=== PATIENT | female | born 1930 | race Caucasian/White ===

== ENCOUNTER 2017-01-03 13:34 | Outpatient (CLI) | payer MEDICARE, OTHER | END 2017-01-03 13:35 | disposition critical access hospital (66) | LOC: EMS 13:34 | PROVIDERS: ATTEND Surgery | DX: L89.329 Pressure ulcer of left buttock, unspecified stage (principal); L89.319 Pressure ulcer of right buttock, unspecified stage; L89.899 Pressure ulcer of other site, unspecified stage; L03.116 Cellulitis of left lower limb; L03.115 Cellulitis of right lower limb; L03.317 Cellulitis of buttock; W06.XXXA Fall from bed, initial encounter; Y93.89 Activity, other specified; Y92.003 Bedroom of unspecified non-institutional (private) residence as the place of occurrence of the external cause | CPT/HCPCS: A0425; A0429 ==

== ENCOUNTER 2017-01-03 14:12 | Inpatient (IN) | payer MEDICARE, OTHER ==
--- NOTE | 2017-01-03 14:27 | ED Physician Documentation ---
PD HPI Fall - Stated complaint Stated Complaint: GLF - History obtained from History obtained from: Patient, EMS - History of Present Illness Mechanism of injury: Slipped (she was trying to get back in bed from going to bathroom and slipped backward onto floor. She did not hit head. Denies injury from the fall. She was unable to get herself up and so lay on the floor for 2 days. She was on her back mainly. Has pain in sacral area. Feeling very dry as has not eaten nor drank for 2 days. Usually lives by herself. Neighbor came to check on her and found her on the floor and called EMS.) Fall distance: Standing position Where injury occurred: Home Timing - onset: How many days ago (2) Injury(ies) location: Back (has soreness on sacral area from lying on floor.), Left Lower Extremity (some pain lateral left hip area.). No: Head, Neck, Chest , Abdomen Quality of pain: Aching Associated symptoms: No: LOC, AMS, Weakness, Paresthesias Worsens with: Movement Contributing factors: No: Anticoagulated, Intoxicated Similar symptoms before: Has not had sx before Recently seen: Not recently seen Review of Systems Constitutional: denies: Fever, Chills Cardiac: denies: Chest pain / pressure, Palpitations Respiratory: denies: Dyspnea, Cough : denies: Dysuria, Frequency Musculoskeletal: denies: Neck pain Neurologic: denies: Focal weakness, Numbness, Headache, Head injury PD PAST MEDICAL HISTORY - Past Medical History Cardiovascular: None Respiratory: None Neuro: None Endocrine/Autoimmune: None - Allergies Allergies/Adverse Reactions: Allergies Allergy/AdvReac Type Severity Reaction Status Date / Time dye Allergy Unknown Uncoded 01/03/17 14:43 - Living Situation Living Situation: reports: Alone Living Arrangement: reports: At home - Social History Does the pt smoke?: No Does the pt drink ETOH?: No Does the pt have substance abuse?: No - Family History Family history: reports: Non contributory PD ED PE NORMAL - Vitals Vital signs reviewed: Yes - General General: Alert and oriented X 3, No acute distress, Well developed/nourished - HEENT HEENT: Atraumatic, PERRL, Pharynx benign. No: Moist mucous membranes - Neck Neck: Supple, no meningeal sign, No adenopathy - Cardiac Cardiac: RRR, No murmur - Respiratory Respiratory: Clear bilaterally, Other (no chestwall tenderness) - Abdomen Abdomen: Soft, Non tender - Back Back: No spinal TTP, Other (large sacral pressure wound with necrotic tissue and surrounding redness. ) - Derm Derm: Normal color, Warm and dry - Extremities Extremities: No tenderness to palpate, No edema, No calf tenderness / cord - Neuro Neuro: Alert and oriented X 3, No motor deficit, Normal speech - Psych Psych: Normal mood, Normal affect Results - Vitals Vitals: Vital Signs - 24 hr 01/03/17 14:27 Temperature 35.9 C L Heart Rate 87 Respiratory 28 H Rate Blood Pressure 133/98 H O2 Saturation 97 - Labs Labs: Laboratory Tests 01/03/17 01/03/17 01/03/17 15:35 15:35 15:35 WBC 20.0 H RBC 5.08 Hgb 15.1 Hct 46.0 MCV 90.5 MCH 29.7 MCHC 32.8 RDW 13.8 Plt Count 298 MPV 8.2 Neut # 16.2 H Lymph # 1.2 L [place] # 2.6 H Eos # 0.0 Baso # 0.1 Absolute Nucleated RBC 0.00 Nucleated RBCs 0.0 Sodium 158 H* Potassium 3.1 L Chloride 118 H Carbon Dioxide 20 L Anion Gap 18.0 H Creatinine 2.5 H Estimated GFR (MDRD) 18 L Glucose 123 H Lactic Acid 1.7 Calcium 8.9 Magnesium 2.3 Total Bilirubin 1.1 H AST 53 H ALT 44 Alkaline Phosphatase 61 Total Creatine Kinase 2646 H* Total Protein 5.9 L Albumin 3.0 L Globulin 2.9 Albumin/Globulin Ratio 1.0 Lipase 42 - Rads (name of study) chest Radiology: Prelim report reviewed (normal) hip left Radiology: Prelim report reviewed (no noted fracture. osteoarthritis noted. ) PD MEDICAL DECISION MAKING - ED course Complexity details: reviewed results, considered differential (large pressure sore on sacral area with skin necrosis, surrounding redness concerning for infection. She is dehydrated. ), d/w patient, d/w financial analysis consultant (Dr. Eagle) Departure - Departure Disposition: 66 [facility] DC/Xfer Clinical Impression: Dehydration, Hypernatremia, Renal insufficiency Accidental fall Qualifiers: Encounter type: initial encounter Qualified Code(s): W19.XXXA - Unspecified fall, initial encounter Sacral decubitus ulcer Qualifiers: Pressure ulcer stage: unspecified pressure ulcer stage Qualified Code(s): L89.159 - Pressure ulcer of sacral region, unspecified stage Cellulitis Qualifiers: Site of cellulitis: buttock Qualified Code(s): L03.317 - Cellulitis of buttock Condition: Stable Record reviewed to determine appropriate education?: Yes
[2017-01-03] MEDS ORDERED: SODIUM CHLORIDE 0.9% 1,000 ML IV ONE ×2 (14:51→14:59)
[2017-01-03] MEDS ORDERED: ceFAZolin 1 GM in SODIUM CHLORIDE 0.9% MINIBAG 100 ML IV ONE (14:54)
[2017-01-03] MEDS ORDERED: ceFAZolin 1 GM VIAL ONE (15:23)
[2017-01-03 15:43] LABS: BASOPHILS # (AUTO) 0.1 10^3/uL (0.0-0.1); BASOPHILS % (AUTO) 0.3 %; HGB - HEMOGLOBIN 15.1 g/dL (12.0-16.0); LYMPHOCYTES # (AUTO) 1.2 10^3/uL (1.5-3.5); LYMPHOCYTES % (AUTO) 5.9 %; MEAN CORPUSCULAR HEMOGLOBIN 29.7 pg (27.0-31.0); MEAN CORPUSCULAR HGB CONC 32.8 g/dL (32.0-36.0); MEAN CORPUSCULAR VOLUME 90.5 fL (81.0-99.0); MEAN PLATELET VOLUME 8.2 fL (7.9-10.8); MONOCYTES # (AUTO) 2.6 10^3/uL (0.0-1.0); MONOCYTES % (AUTO) 12.7 %; NEUTROPHILS # (AUTO) 16.2 10^3/uL (1.5-6.6); NEUTROPHILS % (AUTO) 81.1 %; RED BLOOD COUNT 5.08 10^6/uL (4.20-5.40); RED CELL DISTRIBUTION WIDTH 13.8 % (12.0-15.0)
--- NOTE | 2017-01-03 15:48 | XRAY Preliminary Report ---
Exam: XR Chest 1 View IMPRESSION: No acute pulmonary consolidation. [facility] SITE ID: [id number]
--- NOTE | 2017-01-03 15:51 | XRAY Report ---
EXAM: CHEST RADIOGRAPHY EXAM DATE: 01/03/2017 03:25 PM. CLINICAL HISTORY: Fall. COMPARISON: None. TECHNIQUE: 1 view. FINDINGS: Lungs/Pleura: No focal opacities evident. No pleural effusion. No pneumothorax. Mediastinum: Mild tortuosity of the thoracic aorta with atherosclerotic calcification. Other: Bilateral glenohumeral osteoarthritis. IMPRESSION: No acute pulmonary consolidation. [facility] Referring Provider Line: [phone] SITE ID: [id number]
--- NOTE | 2017-01-03 15:53 | XRAY Preliminary Report ---
Exam: XR Hip w/Pelvis 2-3V LT IMPRESSION: 1. No definite evidence of fracture or dislocation. 2. Bilateral hip osteoarthritis. Osteitis pubis. [facility] SITE ID: [id number]
--- NOTE | 2017-01-03 15:55 | XRAY Report ---
EXAM: LEFT HIP AND PELVIS RADIOGRAPHY EXAM DATE: 01/03/2017 03:25 PM. HISTORY: Fall with left hip pain. COMPARISONS: None. TECHNIQUE: 1 view of the pelvis and 1 view of the hip. FINDINGS: Bones: Normal. No fracture or bone lesion. Joints: Mild bilateral joint space narrowing, greater on the left. Sclerosis at the symphysis pubis c onsistent with mild osteitis pubis. Degenerative disk disease lower lumbar spine. Soft Tissues: Enthesopathic spurring at the left greater trochanter. IMPRESSION: 1. No definite evidence of fracture or dislocation. 2. Bilateral hip osteoarthritis. Osteitis pubis. [facility] Referring Provider Line: [phone] SITE ID: [id number]
[2017-01-03 16:34] LABS: BILIRUBIN,TOTAL 1.1 mg/dL (0.2-1.0); CALCIUM 8.9 mg/dL (8.5-10.3); CREATININE 2.5 mg/dL (0.4-1.0); MAGNESIUM 2.3 mg/dL (1.7-2.8); POTASSIUM 3.1 mmol/L (3.5-5.0); TOTAL PROTEIN 5.9 g/dL (6.7-8.2)
[2017-01-03] MEDS ORDERED: HYDROcod/ACETAM 5/325 MG TABLET PO PRN (17:21)
[2017-01-03] MEDS ORDERED: ONDANSETRON 4 MG/2 ML VIAL IVP PRN (17:21)
[2017-01-03] MEDS ORDERED: DEXTROSE 5% 1,000 ML IV SCH (18:00)
[2017-01-03] MEDS ORDERED: MULTIVITAMIN TABLET PO SCH (18:00)
--- NOTE | 2017-01-03 19:00 | HISTORY & PHYSICAL EXAMINATION ---
DATE OF ADMISSION: 01/03/2017 PRIMARY CARE PROVIDER: The patient does not have a primary care provider and reports the last time she saw a doctor was greater than 5 years ago. CHIEF COMPLAINT: The patient found on floor by neighbors. HISTORY OF PRESENT ILLNESS: This is an 86-year-old female, who reportedly is totally independent in her home and was found on the floor by her neighbors after they had not seen her for a couple days. Per the patient, she fell trying to get into bed and relates that her mattress is very high and that she no longer has the strength and flexibility to get in and out of her bed as she did before and really needs to replace her mattress. She reports that approximately 5:15 in the morning as she looked at her clock, she was grabbing onto her blankets to help pull her into bed and fell backward but landed on a large pillows that she had taken with her. It is unknown the length of time the patient was on the ground, but she reports she lost track after 2 to 3 days. She was not able to get up or get any type of help, and fortunately her neighbors went to check on her and found her on the floor. She was extremely dehydrated; and in the emergency department, she was started on boluses of IV fluids as well as Ancef for a large decubitus ulcer that was found on examination. She will be admitted to the med-surg floor as she has a very high sodium level at 158 and will need to be rehydrated, will need wound care assessment, will need assessment for possible penitentiary facility, and for further workup. Social Work will need to see her as it does not appear on examination that the patient is able to care for herself very well at home. PAST MEDICAL HISTORY: We have no past medical history in our charts; and as she has no primary care provider, we are unable to get a hold of any medical providers that know her past medical history. She reports that she has a history of high blood pressure but has not taken medications for many years. She denies any diabetes, stroke, heart attack, asthma, COPD, emphysema, problems with her eyes. She does report that she had skin cancer more than 5 years ago on her left inner thigh and does admit to stress incontinence at times. PAST SURGICAL HISTORY: Includes hysterectomy and tonsillectomy. FAMILY HISTORY: Not pertinent to this admission. SOCIAL HISTORY: Smoking: The patient denies history of smoking or alcohol use. REVIEW OF SYSTEMS: Review of systems was performed, and the patient denies that she was having any nausea, vomiting, fevers, chills, headaches, blurring, dizziness, chest pain. She does report that she has bilateral shoulder pain, and this is a chronic issue as well as right hip pain prior to her fall. MEDICATIONS: The patient denies that she take any medications; however, [employer] is where she buys her vitamins. ALLERGIES: THE PATIENT REPORTS THAT SHE IS ALLERGIC TO CONTRAST DYES BUT CANNOT DESCRIBE THE REACTION. SHE HAS NO KNOWN DRUG ALLERGIES OTHERWISE PER HER. PHYSICAL EXAMINATION VITAL SIGNS: At time of admission, her vitals were temperature of 35.9, heart rate 87, blood pressure 133/98, respiratory rate 28, oxygen saturation 97% on room air. GENERAL: The patient is alert, oriented, and in no acute distress. HEENT: Her mucous membranes are very dry. Her lips are dry and cracked. Extraocular eye muscles intact. Normocephalic, atraumatic. She does have sores on her tongue and along both sides of her cheek. NECK: Supple. No rigidity. No lymphadenopathy. CARDIAC: Regular rate and rhythm. No rubs or murmurs appreciated. LUNGS: Clear bilateral to auscultation, with no rales, rhonchi, or wheezing appreciated. The patient does have decreased thoracic expansion and decreased breath sounds. ABDOMEN: Soft, nontender, nondistended. Bowel sounds active in all 4 quadrants. BACK: The patient has a large decubitus ulcer, which is approximately 5 inches across spanning her gluteal cleft and approximately 2-1/2 inches deep. It is surrounded by confluent erythema and swelling. The wound itself is a dark, blackish color. She does have evidence of bruising and patchy erythema on both of her buttocks, in her gluteal cleft, and down onto her left thigh. EXTREMITIES: No clubbing. No cyanosis. No edema. The patient does have what appears to be peripheral vascular disease in bilateral lower extremities with dull-appearing skin from mid lewis down to ankle. This is also erythematous. It is not painful to touch. She does have evidence of old ulcerations that are scabbed over. Her toenails are extremely overgrown and appear to be overtaken by fungus. She does have a blister on the plantar surface of her left heel and does have boggy heels and bilateral lower extremities. PSYCHIATRIC: Mental status: Mood normal, the patient very pleasant. CODE STATUS: REVIEWED WITH THE PATIENT AND HER WISHES ARE TO BE A FULL CODE. LABORATORIES: At time of admission, sodium 158, potassium 3.1, chloride 118, carbon dioxide 20, anion gap 20, BUN 79, creatinine 2.5, GFR is 18, glucose 123 , lactic acid 1.3, calcium 8.9, magnesium 2.3. Total CK is 2646. Total protein is 5.9, albumin is 3.0. Hematology: White blood cell count 20.0, red blood cell count 5.08, hemoglobin 15.1, hematocrit 46.0, platelet count 298. Urinalysis pending. IMAGING Chest x-ray shows no acute pulmonary consolidation. No focal opacities, pleural effusion, or pneumothorax. Mild tortuosity of the thoracic aorta with atherosclerotic calcification. Bilateral glenohumeral osteoarthritis. Hip and pelvic x-ray, impression: 1. No definite evidence of fracture or dislocation. 2. Bilateral hip osteoarthritis. 3. Osteitis pubis. ASSESSMENT AND PLAN 1. Severe dehydration. CK was 2656. The patient has been given boluses of fluid. We will continue with intravenous hydration and monitor on laboratories. 2. Acute renal failure secondary to severe dehydration. We will continue to monitor her kidney function. 3. Hypernatremia. The patient's sodium level is 158. Her mental status is intact. We will give D5 and continue to monitor her sodium levels at q.2-hour intervals. 4. Decubitus ulcer. Dressing to be placed. The patient to be turned every 2 hours. Wound Care has been consulted. She has been given 1 dose of Ancef in the emergency department, and we will continue this every 8 hours. We will not get a culture as this will identify mixed result secondary to the patient has been lying on her floor in urine for the past couple of days. 5. Bilateral lower extremity cellulitis versus chronic skin changes from possible peripheral vascular disease. The patient's pulses are present in bilateral lower extremities, but we do not know her medical history well enough. I will attempt to reach out to any emergency contacts, which include her son. 6. Hypokalemia. Potassium 3.2, likely secondary to inability to take in p.o. nutrition after fall. 7. Right-sided hip pain. The patient reports that she has had this hip pain previously. Imaging shows no acute injury or fracture dislocation. 8. Deep venous thrombosis prophylaxis. We will start the patient on Lovenox. DIET: The patient may resume regular diet. ACTIVITY: As tolerated, includes repositioning. DISPOSITION: I anticipate secondary to the severity of this patient's dehydration, high sodium level, and injury with wound to her sacrum that she will need greater than 2 midnights in the hospital and likely need penitentiary upon discharge. Social Work has been consulted as I am skeptical that the patient is able to care for herself in her home by herself anymore; we appreciate their input. JOB #: [id number] [facility] JOB #:[id number] BEAU
[2017-01-03] MEDS: PANTOPRAZOLE 40 MG TABLET PO SCH (19:16)
[2017-01-03] MEDS: SODIUM CHLORIDE FLUSH 0.9% 10 ML SYRINGE IVP SCH (19:51)
[2017-01-03] MEDS ORDERED: ZINC OXIDE 20% OINT 28.35 GM TUBE TOP ONE (20:02)
[2017-01-03 21:11] LABS: PH,URINE 5.5 PH (5.0-7.5)
[2017-01-03 21:15] LABS: BILIRUBIN,URINE NEGATIVE (NEGATIVE)
[2017-01-03 21:17] LABS: WBC,URINE 0-3 /HPF (0-5)
[2017-01-03 21:18] LABS: UR CULTURE IF IND NOT INDICATED
[2017-01-04] MEDS: DEXTROSE 5% 1,000 ML IV SCH ×2 (02:34→05:09)
[2017-01-04] MEDS: ceFAZolin 1 GM in SODIUM CHLORIDE 0.9% MINIBAG 100 ML IV SCH ×2 (03:48→15:48)
[2017-01-04] MEDS: SODIUM CHLORIDE FLUSH 0.9% 10 ML SYRINGE IVP SCH ×3 (05:09→22:37)
[2017-01-04 06:16] LABS: BASOPHILS % (AUTO) 0.2 %; EOSINOPHILS % (AUTO) 0.2 %; HCT - HEMATOCRIT 42.9 % (37.0-47.0); HGB - HEMOGLOBIN 13.8 g/dL (12.0-16.0); LYMPHOCYTES % (AUTO) 9.2 %; MEAN CORPUSCULAR HEMOGLOBIN 29.7 pg (27.0-31.0); MEAN CORPUSCULAR HGB CONC 32.2 g/dL (32.0-36.0); MEAN CORPUSCULAR VOLUME 92.2 fL (81.0-99.0); MEAN PLATELET VOLUME 8.4 fL (7.9-10.8); MONOCYTES % (AUTO) 14.4 %; RED BLOOD COUNT 4.65 10^6/uL (4.20-5.40); RED CELL DISTRIBUTION WIDTH 13.9 % (12.0-15.0); UNCORRECTED WHITE BLOOD COUNT 16.1 x10^3/uL; WHITE BLOOD COUNT 16.1 x10^3/uL (4.8-10.8)
[2017-01-04 06:17] LABS: BAND NEUTROPHILS % (MANUAL) 0 %
[2017-01-04] MEDS: PANTOPRAZOLE 40 MG TABLET PO SCH ×2 (06:32→06:38)
[2017-01-04 06:56] LABS: LYMPHOCYTES % (MANUAL) 15 %; NEUTROPHILS % (MANUAL) 79 %; NP AUTO DIFFERENTIAL? YES; NP MAN DIFFERENTIAL? NO; PLATELET ESTIMATE, MANUAL NORMAL (130-450,000) (NORMAL); PLATELET MORPHOLOGY NORMAL APPEARANCE (NORMAL); TOTAL CELLS COUNTED 100
[2017-01-04 07:05] LABS: BILIRUBIN,TOTAL 0.8 mg/dL (0.2-1.0); CALCIUM 8.7 mg/dL (8.5-10.3); CREATININE 2.5 mg/dL (0.4-1.0); POTASSIUM 2.9 mmol/L (3.5-5.0); TOTAL PROTEIN 5.5 g/dL (6.7-8.2)
[2017-01-04] MEDS ORDERED: POTASSIUM CHLOR 20 MEQ/100 ML 100 ML IV SCH (08:00)
[2017-01-04] MEDS ORDERED: LORazepam 0.5 MG TABLET PO PRN (08:31)
--- NOTE | 2017-01-04 08:36 | PROVIDER PROGRESS NOTE ---
Assessment/Plan - Problem List (1) Accidental fall Qualifiers: Encounter type: initial encounter Qualified Code(s): W19.XXXA - Unspecified fall, initial encounter Assessment/Plan: getting into bed Pt was on ground for two to three days -found by her neighbors because they hadn 't seen her in a couple of days and were concerned founding in urine and feces no fractures Pt did not sleep last pm and reported by RN, pt was scared as she kept thinking she was going to fall ? some PTSD Ativan qpm ordered for insomnia social work to consult as I really question if pt is safe/able to care for herself at this time Will need SNF at time of d/c - PT ordered for consult (2) Dehydration Assessment/Plan: severe with mild rhabdo 2/2 fall Continue to treat with IVF (3) Hypernatremia Assessment/Plan: Na 158 at time of admission. Slowly coming down. Last this am is 151 Continue D5 IVF and will decrease rate when sodium level reaches 145 on seizure precautions continue q2 sodium checks (4) Renal insufficiency Assessment/Plan: worse kidney function today BUN 109 (79), but GFR and Cr stable at 18 and 2.5 Continue IVF Again likely 2/2 rhabdo and severe dehydration Appears is prerenal Will continue to watch closely and if continues to worsen, will consult nephrology (5) Rhabdomyolysis Assessment/Plan: Ck 2646 at time of admission Improved to 1506 today Continue IVF ordered high protein diet/snacks (6) Hypokalemia Assessment/Plan: 2.9 this am (3.1 at admission) may be 2/2 increased IVF - hemoconcentration, and poor po intake 2/2 fall Giving 4 k-riders and repeat at 12 noon (7) Lethargic Assessment/Plan: 2/2 insomnia likely 2/2 PTSD from fall pt A and O when woken did not sleep last pm per RN PRN ativan started for qpm for insomnia (8) Sacral decubitus ulcer Qualifiers: Pressure ulcer stage: unspecified pressure ulcer stage Qualified Code(s): L89.159 - Pressure ulcer of sacral region, unspecified stage Assessment/Plan: 2/2 fall and lying on ground for days wound consult ordered appreciate input q2hr turning WBC elevated at time of admission - 20.0 Started on Ancef for likely infection - improved to 16.1 today Afebrile (9) PVD (peripheral vascular disease) Assessment/Plan: Evidence on BLE - skin changes Pt denies cardiac history, h/o PVD, DM, smoking - Current Meds Current Meds: Current Medications Generic Name Dose Route Start Last Admin Trade Name Freq PRN Reason Stop Dose Admin Cefazolin Sodium 1 gm/ Sodium 100 mls @ 200 mls/hr 01/04/17 04:00 01/04/17 03: 48 Chloride IV 200 mls/hr Q12H MICHAEL Administration Dextrose 1,000 mls @ 120 mls/hr 01/04/17 01:21 01/04/17 05:09 D5w IV 120 mls/hr .Q8H20M MICHAEL Administration Pantoprazole Sodium 40 mg 01/03/17 18:00 01/04/17 06:38 Protonix PO Not Given QDAC MICHAEL Sodium Chloride 10 ml 01/03/17 22:00 01/04/17 05:09 Normal Saline Flush 0.9% IVP Not Given Q8HR MICHAEL - Lab Result Lab results reviewed: Yes Fish Bone Diagrams: 01/04/17 05:07 01/04/17 07:43 - Diagnostic Imaging Results Diagnostic Imaging Results: positive: Final report reviewed - Additional Planning Condition/Complexity: Guarded My Orders: My Active Orders 01/03/17 17:50 Neuro Check [RC] Q2-4H 01/03/17 18:06 Turn and Reposition [RC] Q2H 01/04/17 Wound Consult MAC [MAC] Routine 01/04/17 04:00 ceFAZolin [Ancef] 1 gm Sodium Chloride 0.9% Minibag [Normal Saline 0.9% Minibag] 100 ml IV Q12H 01/04/17 08:00 Potassium Chlor 20 Meq/100 ml [Potassium Chloride] 100 ml IV Q1H 01/04/17 08:31 LORazepam [Ativan] 0.5 mg PO QPM PRN 01/04/17 10:00 SODIUM [CHEM] Q2H 01/04/17 12:00 POTASSIUM [CHEM] ONCE SODIUM [CHEM] Q2H 01/05/17 05:00 CBC - COMP BLD CT W/AUTO DIFF [HEME] DAILYLAB CMP [COMPREHENSIVE METABOLIC PANEL] [CHEM] DAILYLAB 01/06/17 05:00 CBC - COMP BLD CT W/AUTO DIFF [HEME] DAILYLAB CMP [COMPREHENSIVE METABOLIC PANEL] [CHEM] DAILYLAB 01/07/17 05:00 CBC - COMP BLD CT W/AUTO DIFF [HEME] DAILYLAB CMP [COMPREHENSIVE METABOLIC PANEL] [CHEM] DAILYLAB 01/08/17 05:00 CBC - COMP BLD CT W/AUTO DIFF [HEME] DAILYLAB CMP [COMPREHENSIVE METABOLIC PANEL] [CHEM] DAILYLAB Consult/Specialty: Other (wound care) Plan Discussed with:: Patient, Case Management, Other (Will try to reach her son ) Time Spent: Greater than 60 minutes Subjective - Subjective Patient Reports: Resting Comfortably, No Complaints, Other (denies n/v/f/c, SOB , CP, abdominal pain "I'm so tired but I feel a little better." "my mouth isn't so dry.") Nursing Reports: No Complaints Objective Vital Signs: Vital Signs - 24 hr 01/03/17 01/03/17 01/04/17 18:14 18:45 01:12 Temperature 36.6 C 36.5 C Heart Rate [ 105 H 117 H Brachial] Respiratory 18 16 20 Rate Blood Pressure 154/73 H Blood Pressure 138/76 H 147/82 H [Right Brachial artery] O2 Saturation 96 99 01/04/17 05:59 Temperature 36.7 C Heart Rate [ 95 Brachial] Respiratory 18 Rate Blood Pressure Blood Pressure 127/68 [Right Brachial artery] O2 Saturation 98 Oxygen O2 Source Room air I&O (Last 24 Hrs): Intake and Output Totals x24h 01/02/17 01/03/17 01/04/17 23:59 23:59 23:59 Intake Total 1607 1336 Output Total 800 250 Balance 807 1086 General: Alert, Oriented x3, Cooperative, No acute distress HEENT: Atraumatic, PERRLA, EOMI, Other (dry mucous membranes) Neck: Supple, No JVD Cardiovascular: Regular rate, Normal S1, Normal S2 Respiratory: Chest non-tender, No respiratory distress, Breath sounds nml Abdomen: Normal bowel sounds, Soft, No tenderness, No masses Extremities: No clubbing, No cyanosis, No edema, Other (Evidence of possible PVD with skin changes on BLE See descriptions under skin.) Comments/Notes: Evidence of possible PVD with skin changes on BLE extremities with dull- appearing skin from mid lewis down to ankle. This is also erythematous. It is not painful to touch. She does have evidence of old ulcerations that are scabbed over. Her toenails are extremely overgrown and appear to be overtaken by fungus. She does have a blister on the plantar surface of her left heel and does have boggy heels and bilateral lower extremities. The patient has a large decubitus ulcer, which is approximately 5 inches across spanning her gluteal cleft and approximately 2-1/2 inches deep. It is surrounded by confluent erythema and swelling. The wound itself is a dark, blackish color. She does have evidence of bruising and patchy erythema on both of her buttocks, in her gluteal cleft, and down onto her left thigh. - Results Results: Laboratory Results WBC 16.1 x10^3/uL (4.8-10.8) H 01/04/17 05:07 RBC 4.65 10^6/uL (4.20-5.40) 01/04/17 05:07 Hgb 13.8 g/dL (12.0-16.0) 01/04/17 05:07 Hct 42.9 % (37.0-47.0) 01/04/17 05:07 MCV 92.2 fL (81.0-99.0) 01/04/17 05:07 MCH 29.7 pg (27.0-31.0) 01/04/17 05:07 MCHC 32.2 g/dL (32.0-36.0) 01/04/17 05:07 RDW 13.9 % (12.0-15.0) 01/04/17 05:07 Plt Count 245 10^3/uL (130-450) 01/04/17 05:07 MPV 8.4 fL (7.9-10.8) 01/04/17 05:07 Neut # Not Reportable 01/04/17 05:07 Lymph # Not Reportable 01/04/17 05:07 [place] # Not Reportable 01/04/17 05:07 Eos # Not Reportable 01/04/17 05:07 Baso # Not Reportable 01/04/17 05:07 Absolute Nucleated RBC Not Reportable 01/04/17 05:07 Total Counted 100 01/04/17 05:07 Band Neuts % (Manual) 0 % (0-10) 01/04/17 05:07 Neutrophils # (Manual) 12.7 10^3/uL (1.5-6.6) H 01/04/17 05:07 Lymphocytes # (Manual) 2.4 10^3/uL (1.5-3.5) 01/04/17 05:07 Monocytes # (Manual) 1.0 10^3/uL (0.0-1.0) 01/04/17 05:07 Nucleated RBCs Not Reportable 01/04/17 05:07 Differential Comment MANUAL DIFFERENTIAL 01/04/17 05:07 Platelet Estimate NORMAL (130-450,000) (NORMAL) 01/04/17 05:07 Platelet Morphology NORMAL APPEARANCE (NORMAL) 01/04/17 05:07 RBC Morph Micro Appear NORMAL APPEARANCE (NORMAL) 01/04/17 05:07 Sodium 149 mmol/L (135-145) H 01/04/17 07:43 Potassium 2.9 mmol/L (3.5-5.0) L 01/04/17 05:07 Chloride 119 mmol/L (101-111) H 01/04/17 05:07 Carbon Dioxide 21 mmol/L (21-32) 01/04/17 05:07 Anion Gap 11.0 (6-13) 01/04/17 05:07 BUN 109 mg/dL (6-20) H* 01/04/17 05:07 Creatinine 2.5 mg/dL (0.4-1.0) H 01/04/17 05:07 Estimated GFR (MDRD) 18 (>89) L 01/04/17 05:07 Glucose 169 mg/dL (70-100) H 01/04/17 05:07 Lactic Acid 1.7 mmol/L (0.5-2.2) 01/03/17 15:35 Calcium 8.7 mg/dL (8.5-10.3) 01/04/17 05:07 Magnesium 2.3 mg/dL (1.7-2.8) 01/03/17 15:35 Total Bilirubin 0.8 mg/dL (0.2-1.0) 01/04/17 05:07 AST 53 IU/L (10-42) H 01/04/17 05:07 ALT 38 IU/L (10-60) 01/04/17 05:07 Alkaline Phosphatase 56 IU/L (42-121) 01/04/17 05:07 Total Creatine Kinase 1506 IU/L (22-269) H* 01/04/17 07:43 Total Protein 5.5 g/dL (6.7-8.2) L 01/04/17 05:07 Albumin 2.7 g/dL (3.2-5.5) L 01/04/17 05:07 Globulin 2.8 g/dL (2.1-4.2) 01/04/17 05:07 Albumin/Globulin Ratio 1.0 (1.0-2.2) 01/04/17 05:07 Lipase 45 U/L (22-51) 01/04/17 07:43 Urine Color YELLOW 01/03/17 21:05 Urine Clarity CLEAR (CLEAR) 01/03/17 21:05 Urine pH 5.5 PH (5.0-7.5) 01/03/17 21:05 Ur Specific [place] 1.015 (1.002-1.030) 01/03/17 21:05 Urine Protein NEGATIVE mg/dL (NEGATIVE) 01/03/17 21:05 Urine Glucose (UA) NEGATIVE mg/dL (NEGATIVE) 01/03/17 21:05 Urine Ketones TRACE mg/dL (NEGATIVE) 01/03/17 21:05 Urine Occult Blood MODERATE (NEGATIVE) H 01/03/17 21:05 Urine Nitrite NEGATIVE (NEGATIVE) 01/03/17 21:05 Urine Bilirubin NEGATIVE (NEGATIVE) 01/03/17 21:05 Urine Urobilinogen 0.2 (NORMAL) E.U./dL (NORMAL) 01/03/17 21:05 Ur Leukocyte Esterase NEGATIVE (NEGATIVE) 01/03/17 21:05 Urine RBC 0-5 /HPF (0-5) 01/03/17 21:05 Urine WBC 0-3 /HPF (0-5) 01/03/17 21:05 Ur Squamous Epith Cells MANY Squamous (<= Few) H 01/03/17 21:05 Urine Bacteria Rare /HPF (None Seen) 01/03/17 21:05 Urine Casts 0-2 Hyaline Casts /LPF 01/03/17 21:05 Urine Mucus Few Strands 01/03/17 21:05 Urine Culture Comments NOT INDICATED 01/03/17 21:05
[2017-01-04] MEDS: POLYETHYLENE GLYCOL 3350 17 GM PACKET PO SCH (10:25)
[2017-01-04] MEDS ORDERED: POTASSIUM CHLORIDE INJ 40 MEQ in SODIUM CHLORIDE 0.9% 480 ML IV ONE (11:00)
[2017-01-04] MEDS ORDERED: POTASSIUM CHLOR 10 MEQ/100 ML 100 ML IV SCH (11:00)
[2017-01-04] MEDS: SODIUM CHLORIDE 0.45% 1,000 ML IV SCH (12:22)
[2017-01-04] MEDS: CALCIUM CARBONATE CHEW 500 MG TABLET PO SCH ×2 (14:27→19:53)
[2017-01-04] MEDS: HYDROcod/ACETAM 10 MG/325 MG TABLET PO PRN ×2 (16:19→22:33)
[2017-01-05] MEDS: SODIUM CHLORIDE 0.45% 1,000 ML IV SCH ×2 (01:51→14:43)
[2017-01-05] MEDS: ceFAZolin 1 GM in SODIUM CHLORIDE 0.9% MINIBAG 100 ML IV SCH ×2 (04:26→16:02)
[2017-01-05 06:16] LABS: BASOPHILS % (AUTO) 0.2 %; EOSINOPHILS % (AUTO) 3.6 %; HCT - HEMATOCRIT 34.9 % (37.0-47.0); HGB - HEMOGLOBIN 11.5 g/dL (12.0-16.0); LYMPHOCYTES % (AUTO) 25.4 %; MEAN CORPUSCULAR HEMOGLOBIN 30.1 pg (27.0-31.0); MEAN CORPUSCULAR VOLUME 91.1 fL (81.0-99.0); MEAN PLATELET VOLUME 8.1 fL (7.9-10.8); MONOCYTES % (AUTO) 13.2 %; NEUTROPHILS % (AUTO) 57.6 %; RED BLOOD COUNT 3.83 10^6/uL (4.20-5.40); RED CELL DISTRIBUTION WIDTH 13.7 % (12.0-15.0); UNCORRECTED WHITE BLOOD COUNT 12.3 x10^3/uL; WHITE BLOOD COUNT 12.3 x10^3/uL (4.8-10.8)
[2017-01-05 06:19] LABS: BAND NEUTROPHILS % (MANUAL) 0 %
[2017-01-05] MEDS: PANTOPRAZOLE 40 MG TABLET PO SCH (06:31)
[2017-01-05] MEDS: SODIUM CHLORIDE FLUSH 0.9% 10 ML SYRINGE IVP SCH ×3 (06:39→20:11)
[2017-01-05 07:34] LABS: ALBUMIN/GLOBULIN RATIO 0.9 (1.0-2.2); BILIRUBIN,TOTAL 0.6 mg/dL (0.2-1.0); POTASSIUM 3.2 mmol/L (3.5-5.0)
[2017-01-05] MEDS: CALCIUM CARBONATE CHEW 500 MG TABLET PO SCH ×2 (08:11→20:11)
[2017-01-05] MEDS: POLYETHYLENE GLYCOL 3350 17 GM PACKET PO SCH (08:11)
[2017-01-05 08:27] LABS: EOSINOPHILS % (MANUAL) 1 %; LYMPHOCYTES % (MANUAL) 23 %; NEUTROPHILS % (MANUAL) 65 %; TOTAL CELLS COUNTED 100
[2017-01-05 08:28] LABS: PLATELET ESTIMATE, MANUAL NORMAL (130-450,000) (NORMAL)
[2017-01-05 08:29] LABS: NP AUTO DIFFERENTIAL? YES; NP MAN DIFFERENTIAL? NO
[2017-01-05] MEDS: HYDROcod/ACETAM 10 MG/325 MG TABLET PO PRN (16:02)
--- NOTE | 2017-01-05 19:44 | PROVIDER PROGRESS NOTE ---
Subjective - Prog Note Date Prog Note Date: 01/05/17 Prog Note Time: 19:42 - Subjective Subjective: she is weak. lays in bed and hasn't gotten up yet other that to sit in chair. denies cp, sob. she tells me there is no one to call. she relies on neighbors and the contact we have, Frances osuna, lives in [place] and to not to call her since she is so far away. a friend, not a relative. Current Medications - Current Medications Current Medications: Active Medications Acetaminophen/Hydrocodone Bitart ([place] 5/325) 1 tab PO Q4HR PRN PRN Reason: Pain 5 to 7 Acetaminophen/Hydrocodone Bitart ([place] 10 Mg/325 Mg) 1 tab PO Q4HR PRN PRN Reason: Pain 8 to 10 Last Admin: 01/05/17 16:02 Dose: 1 tab Calcium Carbonate/Glycine (Tums) 500 mg PO BID [facility] Last Admin: 01/05/17 08:11 Dose: 500 mg Cefazolin Sodium 1 gm/ Sodium (Chloride) 100 mls @ 200 mls/hr IV Q12H [facility] Last Admin: 01/05/17 16:02 Dose: 200 mls/hr Sodium Chloride (Normal Saline 0.45%) 1,000 mls @ 80 mls/hr IV .[id number] [facility] Last Admin: 01/05/17 14:43 Dose: 80 mls/hr Lorazepam (Ativan) 0.5 mg PO QPM PRN PRN Reason: Insomnia Ondansetron HCl (Zofran Inj) 4 mg IVP Q6HR PRN PRN Reason: Nausea / Vomiting Pantoprazole Sodium (Protonix) 40 mg PO QDAC [facility] Last Admin: 01/05/17 06:31 Dose: 40 mg Polyethylene Glycol (Miralax) 17 gm PO DAILY [facility] Last Admin: 01/05/17 08:11 Dose: 17 gm Potassium Chloride (K-Dur) 20 meq PO DAILYWM [facility] Sodium Chloride (Normal Saline Flush 0.9%) 10 ml IVP PRN PRN PRN Reason: NEEDED PER PROVIDER ORDERS Sodium Chloride (Normal Saline Flush 0.9%) 10 ml IVP Q8HR [facility] Last Admin: 01/05/17 11:16 Dose: Not Given No Known Home Medications [No Known Home Medications] 01/03/17 Objective - Vital Signs/Intake & Output Reviewed Vital Signs: Yes Vital Signs: Vital Signs x48h Temp Pulse Pulse Resp BP BP BP 01/05/17 16:05 36.5 C 87 24 120/69 01/05/17 13:02 102 H 127/71 119/76 Pulse Ox 01/05/17 16:05 98 01/05/17 13:02 Intake & Output: Intake & Output 01/02/17 01/03/17 01/04/17 01/05/17 23:59 23:59 23:59 23:59 Intake Total 1607 3036 4436 Output Total 800 1550 1700 Balance 807 1486 2736 - Objective General Appearance: positive: No acute distress, Alert Eyes Bilateral: positive: PERRL, EOMI ENT: positive: Dry mucous membranes (still) Neck: negative: Stiff neck, Carotid bruit Respiratory: positive: Chest non-tender. negative: Wheezes, Rales, Rhonchi Cardiovascular: positive: Regular rate & rhythm, Systolic murmur. negative: Gallop/S4, Friction rub Abdomen: positive: Non-tender, Nml bowel sounds, No distention. negative: Guarding, Rebound Skin: positive: Other (she had the butt excoriations, the sacral/coccyx decub.) Extremities: positive: Pedal edema Neurologic/Psychiatric: positive: Oriented x3, Motor nml (but really weak) - Lab Results Fish Bones: 01/05/17 05:38 01/05/17 05:38 Other Labs: Lab Results x24hrs 01/05/17 01/05/17 01/04/17 Range/Units 05:38 05:38 22:05 WBC 12.3 H (4.8-10.8) x10^3/uL RBC 3.83 L (4.20-5.40) 10^6/uL Hgb 11.5 L (12.0-16.0) g/dL Hct 34.9 L (37.0-47.0) % MCV 91.1 (81.0-99.0) fL MCH 30.1 (27.0-31.0) pg MCHC 33.0 (32.0-36.0) g/dL RDW 13.7 (12.0-15.0) % Plt Count 145 (130-450) 10^3/uL MPV 8.1 (7.9-10.8) fL Neut # Not Reportable Lymph # Not Reportable [place] # Not Reportable Eos # Not Reportable Baso # Not Reportable Absolute Nucleated RBC Not Reportable Total Counted 100 Band Neuts % (Manual) 0 (0 - 10) % Neutrophils # (Manual) 8.0 H (1.5-6.6) 10^3/uL Lymphocytes # (Manual) 2.8 (1.5-3.5) 10^3/uL Monocytes # (Manual) 1.4 H (0.0-1.0) 10^3/uL Eosinophils # (Manual) 0.1 (0-0.7) 10^3/uL Nucleated RBCs Not Reportable Differential Comment MANUAL DIFFERENTIAL Platelet Estimate NORMAL (130-450,000) (NORMAL) RBC Morph Micro Appear NORMAL APPEARANCE (NORMAL) Sodium 146 H 142 (135-145) mmol/L Potassium 3.2 L (3.5-5.0) mmol/L Chloride 116 H (101-111) mmol/L Carbon Dioxide 22 (21-32) mmol/L Anion Gap 8.0 (6-13) BUN 92 H* (6-20) mg/dL Creatinine 2.0 H (0.4-1.0) mg/dL Estimated GFR (MDRD) 24 L (>89) Glucose 98 (70-100) mg/dL Calcium 8.0 L (8.5-10.3) mg/dL Total Bilirubin 0.6 (0.2-1.0) mg/dL AST 28 (10-42) IU/L ALT 18 (10-60) IU/L Alkaline Phosphatase 43 (42-121) IU/L Total Protein 5.0 L (6.7-8.2) g/dL Albumin 2.3 L (3.2-5.5) g/dL Globulin 2.7 (2.1-4.2) g/dL Albumin/Globulin Ratio 0.9 L (1.0-2.2) Assessment/Plan - Problem List (1) Accidental fall Impression: at home with subsequent laying on floor and subsequent problems below. she is so so weak. seen by PT "Pt is an 86 y.o. female who was admitted to the ED with complaints of pain and weakness after a GLF and was diagnosed with dehydration and a large decubitus ulcer. Pt fell in her bedroom and was on the floor for 3 days before her neighbors found her. Pt states her bed is very high and she has been having issues transferring on/off it for a while; pt is aware of the increased difficulty she is having at home and realizes she has been declining over time. PT and OT went in together for evaluation; PT and OT came in when LUIGI Wade needed help cleaning pt up. Pt was supine in bed upon PT arrival; pt rolled side to side with mod Ax1-2 to get cleaned up and get her brief changed; pt reported feeling dizzy with rolling that settled after movement was stopped. Pt had some drainage but PT didn't observe the wound because of dressing but pt moaned in pain when getting cleaned up. Pt was very anxious about getting up after her fall but PT and OT reassured her and she was agreeable to try. Pt transferred supine<>sit with mod-max Ax2 to sitting EOB; pt sat EOB with SBA- CGA and required verbal cues for sitting up straight; pt reported no dizziness with transfer. Pt sat EOB for several minutes while OT cleaned up pt's hair and performed some ADLs. Pt transferred sit<>supine with max Ax2 and scooted up in bed with max Ax2. Pt remained in bed after session with call light. Pt presents with fear after traumatic incident, decreased functional strength and mobility. Pt would benefit from skilled therapy to improve functional mobility with transfers and progress towards weight bearing activities and gait training. PT recommends pt d/c to SNF for continued therapy after leaving the hospital." Qualifiers: Encounter type: subsequent encounter Qualified Code(s): W19.XXXD - Unspecified fall, subsequent encounter (2) Rhabdomyolysis Impression: she only had a modest elevation to 2K of CPK but gave her number 3 Qualifiers: Rhabdomyolysis type: traumatic (3) Renal insufficiency Impression: and electrolyte imbalance. On IVf and Na is improving, BUN is 92. (4) Sacral decubitus ulcer Impression: will talk to General Surgery in am to see if needs debridement. Qualifiers: Pressure ulcer stage: stage 3 Qualified Code(s): L89.153 - Pressure ulcer of sacral region, stage 3
[2017-01-05] MEDS: POTASSIUM CHLORIDE 20 MEQ TABLET PO SCH (20:10)
[2017-01-06] MEDS: SODIUM CHLORIDE 0.45% 1,000 ML IV SCH (02:10)
[2017-01-06] MEDS: ceFAZolin 1 GM in SODIUM CHLORIDE 0.9% MINIBAG 100 ML IV SCH ×2 (04:22→16:23)
[2017-01-06 05:46] LABS: BASOPHILS % (AUTO) 0.2 %; EOSINOPHILS # (AUTO) 0.6 10^3/uL (0.0-0.7); EOSINOPHILS % (AUTO) 4.8 %; HCT - HEMATOCRIT 36.3 % (37.0-47.0); HGB - HEMOGLOBIN 11.6 g/dL (12.0-16.0); LYMPHOCYTES # (AUTO) 2.6 10^3/uL (1.5-3.5); LYMPHOCYTES % (AUTO) 21.3 %; MEAN CORPUSCULAR HEMOGLOBIN 29.6 pg (27.0-31.0); MEAN CORPUSCULAR HGB CONC 31.9 g/dL (32.0-36.0); MEAN CORPUSCULAR VOLUME 92.7 fL (81.0-99.0); MEAN PLATELET VOLUME 8.3 fL (7.9-10.8); MONOCYTES # (AUTO) 1.8 10^3/uL (0.0-1.0); MONOCYTES % (AUTO) 14.9 %; NEUTROPHILS % (AUTO) 58.8 %; NUCLEATED RED BLOOD CELLS AUTO 0.1 /100WBC; RED BLOOD COUNT 3.92 10^6/uL (4.20-5.40); RED CELL DISTRIBUTION WIDTH 13.9 % (12.0-15.0)
[2017-01-06 06:04] LABS: ALBUMIN/GLOBULIN RATIO 0.9 (1.0-2.2); BILIRUBIN,TOTAL 0.7 mg/dL (0.2-1.0); CALCIUM 8.1 mg/dL (8.5-10.3); CREATININE 1.4 mg/dL (0.4-1.0); POTASSIUM 3.7 mmol/L (3.5-5.0)
[2017-01-06] MEDS: SODIUM CHLORIDE FLUSH 0.9% 10 ML SYRINGE IVP SCH ×3 (06:17→20:43)
[2017-01-06 06:25] LABS: PLATELET ESTIMATE, MANUAL NORMAL (130-450,000) (NORMAL); PLATELET MORPHOLOGY NORMAL APPEARANCE (NORMAL)
[2017-01-06 06:26] LABS: NP AUTO DIFFERENTIAL? NO; NP MAN DIFFERENTIAL? YES
[2017-01-06] MEDS: PANTOPRAZOLE 40 MG TABLET PO SCH (07:40)
[2017-01-06] MEDS: POTASSIUM CHLORIDE 20 MEQ TABLET PO SCH (07:40)
[2017-01-06] MEDS: POLYETHYLENE GLYCOL 3350 17 GM PACKET PO SCH (09:19)
[2017-01-06] MEDS: CALCIUM CARBONATE CHEW 500 MG TABLET PO SCH ×2 (09:19→20:37)
[2017-01-06] MEDS: MINERAL OIL/PETROLAT OPHTH OINT EACHEYE SCH ×2 (12:25→20:43)
--- NOTE | 2017-01-06 12:27 | PROVIDER PROGRESS NOTE ---
Subjective - Prog Note Date Prog Note Date: 01/06/17 Prog Note Time: 09:00 - Subjective Pt reports feeling: Improved Subjective: Patient sitting up in the bed this morning, finished breakfast, says she is "extremely weak", she was only able to sit to the side of bed yesterday. She is eating, decreased appetite, no N/V, + constipation. LE with +2-3 pitting edema from SCDs, patient reports this is new. No chets or back pain, no headache or neuro changes. Current Medications - Current Medications Current Medications: Active Medications Acetaminophen/Hydrocodone Bitart ([place] 5/325) 1 tab PO Q4HR PRN PRN Reason: Pain 5 to 7 Last Admin: 01/05/17 20:56 Dose: 1 tab Acetaminophen/Hydrocodone Bitart ([place] 10 Mg/325 Mg) 1 tab PO Q4HR PRN PRN Reason: Pain 8 to 10 Last Admin: 01/05/17 16:02 Dose: 1 tab Calcium Carbonate/Glycine (Tums) 500 mg PO BID [facility] Last Admin: 01/06/17 09:19 Dose: 500 mg Cefazolin Sodium 1 gm/ Sodium (Chloride) 100 mls @ 200 mls/hr IV Q12H [facility] Last Admin: 01/06/17 04:22 Dose: 200 mls/hr Sodium Chloride (Normal Saline 0.45%) 1,000 mls @ 80 mls/hr IV .[id number] [facility] Last Admin: 01/06/17 02:10 Dose: 80 mls/hr Lorazepam (Ativan) 0.5 mg PO QPM PRN PRN Reason: Insomnia Multi-Ingred Cream/Lotion/Oil/Oint (Lubrifresh Pm Ophth Oint) 1 applic EACHEYE BID [facility] Ondansetron HCl (Zofran Inj) 4 mg IVP Q6HR PRN PRN Reason: Nausea / Vomiting Pantoprazole Sodium (Protonix) 40 mg PO QDAC [facility] Last Admin: 01/06/17 07:40 Dose: 40 mg Polyethylene Glycol (Miralax) 17 gm PO DAILY [facility] Last Admin: 01/06/17 09:19 Dose: 17 gm Potassium Chloride (K-Dur) 20 meq PO DAILYWM [facility] Last Admin: 01/06/17 07:40 Dose: 20 meq Sodium Chloride (Normal Saline Flush 0.9%) 10 ml IVP PRN PRN PRN Reason: NEEDED PER PROVIDER ORDERS Sodium Chloride (Normal Saline Flush 0.9%) 10 ml IVP Q8HR [facility] Last Admin: 01/06/17 10:26 Dose: Not Given No Known Home Medications [No Known Home Medications] 01/03/17 Objective - Vital Signs/Intake & Output Reviewed Vital Signs: Yes Vital Signs: Vital Signs x48h Temp Pulse Resp BP Pulse Ox 01/06/17 09:31 37.1 C 100 16 138/81 H 96 01/06/17 05:45 36.8 C 86 18 143/80 H 96 Intake & Output: Intake & Output 01/03/17 01/04/17 01/05/17 01/06/17 23:59 23:59 23:59 23:59 Intake Total 1607 3036 4736 200 Output Total 800 1550 2400 1075 Balance 807 1486 2336 -875 - Objective General Appearance: positive: No acute distress, Alert Eyes Bilateral: positive: Normal inspection ENT: positive: Dry mucous membranes Neck: positive: No JVD Respiratory: positive: Chest non-tender, Breath sounds nml (slightly coarse in the left side anteriorly) Cardiovascular: positive: Regular rate & rhythm, Systolic murmur. negative: Tachycardia Peripheral Pulses: 1+ Dorsalis pedis (R), 1+ Dorsalis pedis (L), 2+ Radial (R), 2+ Radial (L) Abdomen: negative: Nml bowel sounds (hypoactive, rounded, non-tender) Skin: positive: Color nml, Warm, Dry Extremities: positive: Pedal edema (+2-3 in the BLE, not past the knees) Neurologic/Psychiatric: positive: Oriented x3, Motor nml, Sensation nml, Mood/ affect nml, Weakness (generalized) - Lab Results Fish Bones: 01/06/17 04:35 01/06/17 04:35 Other Labs: Lab Results x24hrs 01/06/17 01/06/17 Range/Units 04:35 04:35 WBC 12.0 H (4.8-10.8) x10^3/uL RBC 3.92 L (4.20-5.40) 10^6/uL Hgb 11.6 L (12.0-16.0) g/dL Hct 36.3 L (37.0-47.0) % MCV 92.7 (81.0-99.0) fL MCH 29.6 (27.0-31.0) pg MCHC 31.9 L (32.0-36.0) g/dL RDW 13.9 (12.0-15.0) % Plt Count 147 (130-450) 10^3/uL MPV 8.3 (7.9-10.8) fL Neut # 7.0 H (1.5-6.6) 10^3/uL Lymph # 2.6 (1.5-3.5) 10^3/uL [place] # 1.8 H (0.0-1.0) 10^3/uL Eos # 0.6 (0.0-0.7) 10^3/uL Baso # 0.0 (0.0-0.1) 10^3/uL Absolute Nucleated RBC 0.01 x10^3/uL Band Neuts % (Manual) Not Reportable Nucleated RBCs 0.1 /100WBC Differential Comment MANUAL=AUTO DIFF Platelet Estimate NORMAL (130-450,000) (NORMAL) Platelet Morphology NORMAL APPEARANCE (NORMAL) RBC Morph Micro Appear NORMAL APPEARANCE (NORMAL) Sodium 147 H (135-145) mmol/L Potassium 3.7 (3.5-5.0) mmol/L Chloride 116 H (101-111) mmol/L Carbon Dioxide 24 (21-32) mmol/L Anion Gap 7.0 (6-13) BUN 64 H (6-20) mg/dL Creatinine 1.4 H (0.4-1.0) mg/dL Estimated GFR (MDRD) 36 L (>89) Glucose 90 (70-100) mg/dL Calcium 8.1 L (8.5-10.3) mg/dL Total Bilirubin 0.7 (0.2-1.0) mg/dL AST 27 (10-42) IU/L ALT 13 (10-60) IU/L Alkaline Phosphatase 42 (42-121) IU/L Total Protein 5.0 L (6.7-8.2) g/dL Albumin 2.3 L (3.2-5.5) g/dL Globulin 2.7 (2.1-4.2) g/dL Albumin/Globulin Ratio 0.9 L (1.0-2.2) Assessment/Plan - Problem List (1) Rhabdomyolysis Impression: Patient with mechanical GLF at home, was on floor 3d until able to get help. Says she scooted herself around and pushed furniture with ehr feet. Developed rhabdo and sacral abrasions. Secondary LESLIE from rhabdo. Has been on IVF and CK improving as well as renal function. -Has been on IVF 100 --> 80ml/hr yesterday -Check CK today, expect to drop by 40-50% each day, if not adeqauet will increase fluid rate -Add Vit C BID Qualifiers: Rhabdomyolysis type: traumatic Encounter type: subsequent encounter Qualified Code(s): T79.6XXD - Traumatic ischemia of muscle, subsequent encounter (2) LESLIE (acute kidney injury) Impression: LESLIE with Creat up to 2.5 from assuming normal baseline (no hx of CKD or RI). LESLIE due to rhabdo as noted above. Hydrating with IVF and Creat down to 1.4/BUN 64. Diffuse BLE edema, patient reports new. -Monitor I&Os, -Monitor renal function -Add TEDs for LE edema -Avoid other nephrotoxic agents, including NSAIDs (3) Accidental fall Qualifiers: Encounter type: subsequent encounter Qualified Code(s): W19.XXXD - Unspecified fall, subsequent encounter (4) Sacral decubitus ulcer Impression: Sacral wound due to 3 days on the floor at home, also scooting self around. Brown wound bed, unstageable, . Also has stage 1 on the left heel. Suprisingly she does not complain of pain at wound site currently. -Wound care consulted and following :slow debriding dressing, change q3day ( next due on Sunday) -If not improving with the dressing regimen, consider d/w gen sergery about surgical debridement -Turn Q2hr DISCHARGE PLANNING: Due to weakness and large sacral decubitus, patient will need to transfer to SNF for PT/OT and wound care - referral to [facility] could also be helpful - life alert necklace recommended before returning home - will need referral for PCP, someone to follow wound care after d/c from SNF ( no PCP prior) Qualifiers: Pressure ulcer stage: unstageable Qualified Code(s): L89.150 - Pressure ulcer of sacral region, unstageable
[2017-01-06] MEDS: ASCORBIC ACID CHEW 500 MG TABLET PO SCH ×2 (14:10→20:37)
[2017-01-07] MEDS: ceFAZolin 1 GM in SODIUM CHLORIDE 0.9% MINIBAG 100 ML IV SCH ×2 (03:48→16:14)
[2017-01-07] MEDS: SODIUM CHLORIDE FLUSH 0.9% 10 ML SYRINGE IVP SCH ×3 (03:49→20:48)
[2017-01-07] MEDS: PANTOPRAZOLE 40 MG TABLET PO SCH (06:17)
[2017-01-07 06:20] LABS: HGB - HEMOGLOBIN 11.7 g/dL (12.0-16.0); LYMPHOCYTES % (AUTO) 19.2 %; MEAN CORPUSCULAR HEMOGLOBIN 29.9 pg (27.0-31.0); MEAN CORPUSCULAR HGB CONC 32.6 g/dL (32.0-36.0); MEAN CORPUSCULAR VOLUME 91.7 fL (81.0-99.0); MEAN PLATELET VOLUME 8.9 fL (7.9-10.8); MONOCYTES % (AUTO) 15.4 %; NEUTROPHILS % (AUTO) 59.4 %; RED BLOOD COUNT 3.93 10^6/uL (4.20-5.40); RED CELL DISTRIBUTION WIDTH 14.1 % (12.0-15.0); UNCORRECTED WHITE BLOOD COUNT 16.8 x10^3/uL; WHITE BLOOD COUNT 16.1 x10^3/uL (4.8-10.8)
[2017-01-07 06:23] LABS: BAND NEUTROPHILS % (MANUAL) 0 %
[2017-01-07 06:26] LABS: ALBUMIN/GLOBULIN RATIO 0.7 (1.0-2.2); BILIRUBIN,TOTAL 0.5 mg/dL (0.2-1.0); CALCIUM 8.1 mg/dL (8.5-10.3); CREATININE 1.1 mg/dL (0.4-1.0); POTASSIUM 4.1 mmol/L (3.5-5.0); TOTAL PROTEIN 5.4 g/dL (6.7-8.2)
[2017-01-07 06:53] LABS: EOSINOPHILS % (MANUAL) 7 %; LYMPHOCYTES % (MANUAL) 14 %; NEUTROPHILS % (MANUAL) 64 %; NP AUTO DIFFERENTIAL? YES; NP MAN DIFFERENTIAL? NO; PLATELET ESTIMATE, MANUAL NORMAL (130-450,000) (NORMAL); PLATELET MORPHOLOGY NORMAL APPEARANCE (NORMAL); TOTAL CELLS COUNTED 100
[2017-01-07] MEDS: POLYETHYLENE GLYCOL 3350 17 GM PACKET PO SCH (07:58)
[2017-01-07] MEDS: POTASSIUM CHLORIDE 20 MEQ TABLET PO SCH (07:59)
[2017-01-07] MEDS: SENNA 8.6 MG TABLET PO SCH ×2 (08:03→20:47)
[2017-01-07] MEDS: DOCUSATE SODIUM 250 MG CAPSULE PO SCH ×2 (08:03→20:46)
[2017-01-07] MEDS: CALCIUM CARBONATE CHEW 500 MG TABLET PO SCH ×2 (08:03→20:51)
[2017-01-07] MEDS: ASCORBIC ACID CHEW 500 MG TABLET PO SCH ×2 (08:03→20:46)
--- NOTE | 2017-01-07 08:04 | XRAY Preliminary Report ---
Exam: XR Chest 1 View IMPRESSION: New mild enlargement of cardiac silhouette without overt CHF. [facility] SITE ID: [id number]
--- NOTE | 2017-01-07 08:08 | XRAY Report ---
EXAM: CHEST RADIOGRAPHY EXAM DATE: 01/07/2017 07:49 AM. CLINICAL HISTORY: Cough, coarse breath sounds, leukocytosis COMPARISON: 01/03/2017. TECHNIQUE: 1 view. FINDINGS: Lungs/Pleura: No focal opacities evident. No pleural effusion. No pneumothorax. Mediastinum: Enlargement of cardiac silhouette without pulmonary venous hypertension. Other: Small hiatal hernia again noted. Severe degenerative change about the shoulder bilaterally. IMPRESSION: New mild enlargement of cardiac silhouette without overt CHF. [facility] Referring Provider Line: [phone] SITE ID: [id number]
[2017-01-07] MEDS: MINERAL OIL/PETROLAT OPHTH OINT EACHEYE SCH ×2 (09:34→20:51)
--- NOTE | 2017-01-07 11:35 | PROVIDER PROGRESS NOTE ---
Subjective - Prog Note Date Prog Note Date: 01/07/17 Prog Note Time: 11:32 - Subjective Pt reports feeling: No change Subjective: Patient sitting up ion the bed this morning eating independently, she is in no distress. Patient reports continued weakness and fatigue but feels it is getting slightly better each day, was able to sit up on the side of the bed for "quite a long time" and denies dizziness with that. Eating well, supplements also. No chest, back or abdominal pain. No BM since 01/04. No N/V or belching. No coccyx pain. No fever chills, myalgias. Current Medications - Current Medications Current Medications: Active Medications Acetaminophen/Hydrocodone Bitart (Cobb 5/325) 1 tab PO Q4HR PRN PRN Reason: Pain 5 to 7 Last Admin: 01/05/17 20:56 Dose: 1 tab Acetaminophen/Hydrocodone Bitart (Cobb 10 Mg/325 Mg) 1 tab PO Q4HR PRN PRN Reason: Pain 8 to 10 Last Admin: 01/05/17 16:02 Dose: 1 tab Ascorbic Acid (Vitamin C) 500 mg PO BID [facility] Last Admin: 01/07/17 08:03 Dose: 500 mg Calcium Carbonate/Glycine (Tums) 500 mg PO BID [facility] Last Admin: 01/07/17 08:03 Dose: 500 mg Docusate Sodium (Colace 250mg Capsule) 250 mg PO BID [facility] Last Admin: 01/07/17 08:03 Dose: 250 mg Cefazolin Sodium 1 gm/ Sodium (Chloride) 100 mls @ 200 mls/hr IV Q12H [facility] Last Admin: 01/07/17 03:48 Dose: 200 mls/hr Lorazepam (Ativan) 0.5 mg PO QPM PRN PRN Reason: Insomnia Multi-Ingred Cream/Lotion/Oil/Oint (Lubrifresh Pm Ophth Oint) 1 applic EACHEYE BID [facility] Last Admin: 01/07/17 09:34 Dose: 1 applic Ondansetron HCl (Zofran Inj) 4 mg IVP Q6HR PRN PRN Reason: Nausea / Vomiting Pantoprazole Sodium (Protonix) 40 mg PO QDAC [facility] Last Admin: 01/07/17 06:17 Dose: 40 mg Polyethylene Glycol (Miralax) 17 gm PO DAILY [facility] Last Admin: 01/07/17 07:58 Dose: 17 gm Potassium Chloride (K-Dur) 20 meq PO DAILYWM [facility] Last Admin: 01/07/17 07:59 Dose: 20 meq Senna (Senokot) 8.6 mg PO BID [facility] Last Admin: 01/07/17 08:03 Dose: 8.6 mg Sodium Chloride (Normal Saline Flush 0.9%) 10 ml IVP PRN PRN PRN Reason: NEEDED PER PROVIDER ORDERS Sodium Chloride (Normal Saline Flush 0.9%) 10 ml IVP Q8HR [facility] Last Admin: 01/07/17 03:49 Dose: 10 ml Zinc Sulfate () 220 mg PO DAILY [facility] No Known Home Medications [No Known Home Medications] 01/03/17 Objective - Vital Signs/Intake & Output Reviewed Vital Signs: Yes Vital Signs: Vital Signs x48h Temp Pulse Resp BP Pulse Ox 01/07/17 10:00 84 148/77 H 01/07/17 09:22 36.6 C 104 H 22 173/85 H 95 01/07/17 06:19 36.6 C 86 14 152/54 H 96 Intake & Output: Intake & Output 01/04/17 01/05/17 01/06/17 01/08/17 23:59 23:59 23:59 00:59 Intake Total 3036 4736 1590 700 Output Total 1550 2400 2875 900 Balance 1486 2336 -1285 -200 - Objective General Appearance: positive: No acute distress, Alert Eyes Bilateral: positive: Normal inspection, PERRL ENT: positive: No signs of dehydration Neck: positive: No JVD Respiratory: positive: Chest non-tender, No respiratory distress. negative: Breath sounds nml (fine bibasilar crackle) Cardiovascular: positive: Regular rate & rhythm, No murmur Peripheral Pulses: 1+ Dorsalis pedis (R), 1+ Dorsalis pedis (L), 2+ Radial (R), 2+ Radial (L) Abdomen: positive: Non-tender, Nml bowel sounds, No distention Back: positive: Nml inspection (red from pressure, blanches) Skin: positive: Color nml, Warm, Dry, Decubitus (mepiplex removed and the pad was saturated with black fluid. The wound has a brown base, the edges are fresh with pink bed and sloughing, there is some greenish changes near the right upper gluteal crease. I palpated the surrounding tissue and she has decreased sensation, there was no areas of fluctance noted.) Extremities: positive: Non-tender, Pedal edema (+1 with KIYA hose on). negative : Calf tenderness, Joint swelling Neurologic/Psychiatric: positive: Oriented x3, Motor nml, Mood/affect nml (very nervous when talking about plan for wound care, she is wary to have anesthesia for debridement. Glad her son will be here [place] - Lab Results Fish Bones: 01/07/17 05:40 01/07/17 05:40 Other Labs: Lab Results x24hrs 01/07/17 01/07/17 01/07/17 Range/Units 05:40 05:40 05:40 WBC 16.1 H (4.8-10.8) x10^3/uL RBC 3.93 L (4.20-5.40) 10^6/uL Hgb 11.7 L (12.0-16.0) g/dL Hct 36.0 L (37.0-47.0) % MCV 91.7 (81.0-99.0) fL MCH 29.9 (27.0-31.0) pg MCHC 32.6 (32.0-36.0) g/dL RDW 14.1 (12.0-15.0) % Plt Count 157 (130-450) 10^3/uL MPV 8.9 (7.9-10.8) fL Neut # Not Reportable Lymph # Not Reportable Tompkins # Not Reportable Eos # Not Reportable Baso # Not Reportable Absolute Nucleated RBC Not Reportable Total Counted 100 Band Neuts % (Manual) 0 (0 - 10) % Neutrophils # (Manual) 10.3 H (1.5-6.6) 10^3/uL Lymphocytes # (Manual) 2.3 (1.5-3.5) 10^3/uL Monocytes # (Manual) 2.4 H (0.0-1.0) 10^3/uL Eosinophils # (Manual) 1.1 H (0-0.7) 10^3/uL Nucleated RBCs Not Reportable Differential Comment MANUAL DIFFERENTIAL Platelet Estimate NORMAL (130-450,000) (NORMAL) Platelet Morphology NORMAL APPEARANCE (NORMAL) RBC Morph Micro Appear NORMAL APPEARANCE (NORMAL) Sodium 142 (135-145) mmol/L Potassium 4.1 (3.5-5.0) mmol/L Chloride 113 H (101-111) mmol/L Carbon Dioxide 24 (21-32) mmol/L Anion Gap 5.0 L (6-13) BUN 44 H (6-20) mg/dL Creatinine 1.1 H (0.4-1.0) mg/dL Estimated GFR (MDRD) 47 L (>89) Glucose 129 H (70-100) mg/dL Calcium 8.1 L (8.5-10.3) mg/dL Total Bilirubin 0.5 (0.2-1.0) mg/dL AST 35 (10-42) IU/L ALT 12 (10-60) IU/L Alkaline Phosphatase 43 (42-121) IU/L Total Creatine Kinase 325 H (22-269) IU/L C-Reactive Protein 4.0 H (0-1.0) mg/dL Total Protein 5.4 L (6.7-8.2) g/dL Albumin 2.3 L (3.2-5.5) g/dL Globulin 3.1 (2.1-4.2) g/dL Albumin/Globulin Ratio 0.7 L (1.0-2.2) 01/06/17 Range/Units 04:35 WBC (4.8-10.8) x10^3/uL RBC (4.20-5.40) 10^6/uL Hgb (12.0-16.0) g/dL Hct (37.0-47.0) % MCV (81.0-99.0) fL MCH (27.0-31.0) pg MCHC (32.0-36.0) g/dL RDW (12.0-15.0) % Plt Count (130-450) 10^3/uL MPV (7.9-10.8) fL Neut # Lymph # Tompkins # Eos # Baso # Absolute Nucleated RBC Total Counted Band Neuts % (Manual) (0 - 10) % Neutrophils # (Manual) (1.5-6.6) 10^3/uL Lymphocytes # (Manual) (1.5-3.5) 10^3/uL Monocytes # (Manual) (0.0-1.0) 10^3/uL Eosinophils # (Manual) (0-0.7) 10^3/uL Nucleated RBCs Differential Comment Platelet Estimate (NORMAL) Platelet Morphology (NORMAL) RBC Morph Micro Appear (NORMAL) Sodium (135-145) mmol/L Potassium (3.5-5.0) mmol/L Chloride (101-111) mmol/L Carbon Dioxide (21-32) mmol/L Anion Gap (6-13) BUN (6-20) mg/dL Creatinine (0.4-1.0) mg/dL Estimated GFR (MDRD) (>89) Glucose (70-100) mg/dL Calcium (8.5-10.3) mg/dL Total Bilirubin (0.2-1.0) mg/dL AST (10-42) IU/L ALT (10-60) IU/L Alkaline Phosphatase (42-121) IU/L Total Creatine Kinase 249 (22-269) IU/L C-Reactive Protein (0-1.0) mg/dL Total Protein (6.7-8.2) g/dL Albumin (3.2-5.5) g/dL Globulin (2.1-4.2) g/dL Albumin/Globulin Ratio (1.0-2.2) Assessment/Plan - Problem List (1) Rhabdomyolysis Impression: Patient with mechanical GLF at home, was on floor 3d until able to get help. Says she scooted herself around and pushed furniture with ehr feet. Developed rhabdo and sacral abrasions. Secondary LESLIE from rhabdo. Given IVF and CK improving as well as renal function. IVF stopped 01/06 and renal function and CK continue to improve. Expect CK to drop by 40-50% each day, if not adeqauet will increase fluid rate -Vit C BID -Ensure adequate PO hydration (2) Sacral decubitus ulcer Impression: Sacral wound due to 3 days on the floor at home, also scooting self around. Brown wound bed, unstageable, (please refer to wound care note for full description/size). Also has stage 1 on the left heel. Dressing removed and saturated with black drianage. Concern for secondary infection as WNC up to 16k after initially improving while on Ancef. Cx would likely be polymicrobial with eschar in place. On exam no obvious abscess noted. -Wound care consulted and following :mechanical debridement with dressing in place per RN report, change q3day (removed today and replaced with wet to dry dressing (as the mepiplex is locked and not accessible) -Will consult gen surgery about surgical debridement tomorrow and ask they work with the traffic survey technician to provide plan, pt is hesistant about any anesthesia. -Turn Q2hr NEW DIAGNOSIS 01/07: Leukocytosis, neutrophil predominant Impression: WBC 20 on admission, trended doen to 12 by 01/06. Today WBC 16 and CRP 4. No systemic symptoms, considered pneumonia, cellulitis and wound infection. -Obtain CXR to rule out pneumonia -- no acute process -Exam LE for cellultiis -- edematous but no erythema or wounds -Coccyx decubitis -- see above, considered liekly source has been on ancef. no culture due to eschar. will have gen surgery and wound care see tomorrow. (3) LESLIE (acute kidney injury) Impression: LESLIE with Creat up to 2.5 from assuming normal baseline (no hx of CKD or RI). LESLIE due to rhabdo as noted above. Hydrated with IVF and Creat down to 1.1/BUN 64. Diffuse BLE edema, patient reports new. -Monitor I&Os, -Monitor renal function -TEDs for LE edema -Avoid other nephrotoxic agents, including NSAIDs (4) Accidental fall see above #1 PT following DISCHARGE PLANNING: Due to weakness and large sacral decubitus, patient will need to transfer to SNF for PT/OT and wound care, plan to transfer once wound plan more clear. - referral to [facility] could also be helpful - life alert necklace recommended before returning home - will need referral for PCP, someone to follow wound care after d/c from SNF ( no PCP prior) Qualifiers: Rhabdomyolysis type: traumatic Encounter type: subsequent encounter Qualified Code(s): T79.6XXD - Traumatic ischemia of muscle, subsequent encounter (3) Accidental fall Qualifiers: Encounter type: subsequent encounter Qualified Code(s): W19.XXXD - Unspecified fall, subsequent encounter (4) Sacral decubitus ulcer Qualifiers: Pressure ulcer stage: unstageable Qualified Code(s): L89.150 - Pressure ulcer of sacral region, unstageable
[2017-01-07] MEDS: ZINC SULFATE 220 MG CAPSULE PO SCH (12:16)
[2017-01-07] MEDS: SODIUM CHLORIDE FLUSH 0.9% 10 ML SYRINGE IVP PRN (16:14)
[2017-01-07] MEDS ORDERED: A & D OINTMENT 5 GM PACKET TOP PRN (16:45)
[2017-01-07] MEDS ORDERED: ALPRAZolam 0.25 MG TABLET PO PRN (19:58)
[2017-01-08] MEDS: SODIUM CHLORIDE FLUSH 0.9% 10 ML SYRINGE IVP PRN (03:50)
[2017-01-08] MEDS: ceFAZolin 1 GM in SODIUM CHLORIDE 0.9% MINIBAG 100 ML IV SCH ×2 (03:50→15:52)
[2017-01-08 06:02] LABS: BASOPHILS % (AUTO) 0.4 %; EOSINOPHILS % (AUTO) 4.8 %; HCT - HEMATOCRIT 35.8 % (37.0-47.0); HGB - HEMOGLOBIN 11.7 g/dL (12.0-16.0); LYMPHOCYTES % (AUTO) 15.4 %; MEAN CORPUSCULAR HEMOGLOBIN 29.8 pg (27.0-31.0); MEAN CORPUSCULAR HGB CONC 32.7 g/dL (32.0-36.0); MEAN CORPUSCULAR VOLUME 91.3 fL (81.0-99.0); MEAN PLATELET VOLUME 8.4 fL (7.9-10.8); MONOCYTES % (AUTO) 15.8 %; NEUTROPHILS % (AUTO) 63.6 %; RED BLOOD COUNT 3.93 10^6/uL (4.20-5.40); RED CELL DISTRIBUTION WIDTH 13.5 % (12.0-15.0); UNCORRECTED WHITE BLOOD COUNT 12.7 x10^3/uL; WHITE BLOOD COUNT 12.7 x10^3/uL (4.8-10.8)
[2017-01-08] MEDS: PANTOPRAZOLE 40 MG TABLET PO SCH (06:04)
[2017-01-08] MEDS: SODIUM CHLORIDE FLUSH 0.9% 10 ML SYRINGE IVP SCH ×2 (06:04→14:07)
[2017-01-08 06:25] LABS: BAND NEUTROPHILS % (MANUAL) 0 %
[2017-01-08 06:29] LABS: ALBUMIN/GLOBULIN RATIO 0.8 (1.0-2.2); BILIRUBIN,TOTAL 0.5 mg/dL (0.2-1.0); CALCIUM 8.3 mg/dL (8.5-10.3); POTASSIUM 4.3 mmol/L (3.5-5.0); TOTAL PROTEIN 5.3 g/dL (6.7-8.2)
[2017-01-08 06:44] LABS: EOSINOPHILS % (MANUAL) 5 %; LYMPHOCYTES % (MANUAL) 11 %; NEUTROPHILS % (MANUAL) 67 %; TOTAL CELLS COUNTED 100
[2017-01-08 06:46] LABS: NP AUTO DIFFERENTIAL? YES; NP MAN DIFFERENTIAL? NO; PLATELET ESTIMATE, MANUAL NORMAL (130-450,000) (NORMAL); PLATELET MORPHOLOGY NORMAL APPEARANCE (NORMAL)
[2017-01-08] MEDS: POTASSIUM CHLORIDE 20 MEQ TABLET PO SCH (07:47)
[2017-01-08 09:00] VITALS: BP 148/78
[2017-01-08] MEDS ORDERED: LISINOPRIL 5 MG TABLET PO SCH (09:00)
[2017-01-08] MEDS ORDERED: hydroCHLOROthiazide 12.5 MG CAPSULE PO SCH (09:00)
[2017-01-08] MEDS: POLYETHYLENE GLYCOL 3350 17 GM PACKET PO SCH (10:24)
[2017-01-08] MEDS: CALCIUM CARBONATE CHEW 500 MG TABLET PO SCH (10:25)
[2017-01-08] MEDS: ASCORBIC ACID CHEW 500 MG TABLET PO SCH (10:25)
[2017-01-08] MEDS: DOCUSATE SODIUM 250 MG CAPSULE PO SCH (10:26)
[2017-01-08] MEDS: SENNA 8.6 MG TABLET PO SCH (10:26)
[2017-01-08] MEDS: ZINC SULFATE 220 MG CAPSULE PO SCH (10:26)
[2017-01-08] MEDS: MINERAL OIL/PETROLAT OPHTH OINT EACHEYE SCH (10:27)
--- NOTE | 2017-01-10 17:44 | DISCHARGE SUMMARY ---
DATE OF ADMISSION: 01/03/2017 DATE OF DISCHARGE: 01/08/2017 DISCHARGING PROVIDER: JOE Saucedo. PRIMARY CARE PROVIDER: None. DISCHARGE DIAGNOSES: 1. Rhabdomyolysis with secondary acute kidney injury, both resolved. 2. Sacral decubitus ulcer, unstageable. 3. Accidental fall. 4. Hypertension, new. 5. Hypokalemia. 6. Anxiety. 7. Hypernatremia secondary to hypovolemia. DISCHARGE MEDICATION LIST: 1. Tylenol 650 mg by mouth every 6 hours as needed for pain, fever or headache. 2. [place] 5/325 mg 1-2 tablets by mouth every 4 hours as needed for pain. 3. Xanax 0.25 mg by mouth every 6 hours as needed for anxiety. 4. Vitamin C 500 mg by mouth twice a day. 5. Tums 500 mg by mouth twice a day. 6. Colace 250 mg by mouth twice a day. 7. Hydrochlorothiazide 12.5 mg by mouth daily. 8. Lisinopril 2.5 mg by mouth daily. 9. Lubrifresh ophthalmic ointment to each eye twice a day for dry eyes. 10. MiraLax 17 grams by mouth daily. 11. K-Dur 20 mEq by mouth daily. 12. Senna 8.6 mg by mouth twice a day. 13. Zinc sulfate 220 mg by mouth daily. 14. Iodosorb gel to coccyx wound daily with dressing change. HOSPITAL COURSE: The patient is a pleasant 86-year-old independent female with no significant past medical history, who presented to the emergency room after she had a mechanical slip and fall from her bed as she was at home. The patient was unable to get herself up off the floor and remained there for 3-4 days, she is not sure. She reports that she scooted herself around, pushed the furniture with her feet and was finally able to get help. On arrival to the emergency department, the patient was evaluated, she was noted to have rhabdomyolysis with elevated CK of 2646 and an acute kidney injury with a creatinine of 2.5, no known history of renal disease. She was admitted, given IV hydration for which her renal function improved daily and her CK continued to drop. At the time of discharge, her creatinine was 1.0. Her last CK was 325. Also of note in the emergency department with a very large 13 x 9 cm area of a decubitus ulcer on the coccyx. The 80% of the wound bed is covered by brown tissue, the innermost part of that is covered with firm black eschar. The outer most 1 to 1.5 cm edge of the wound has some sloughing with pink wound bed. Around the gluteal crease there was increase sloughing. The patient was seen by the wound care nurse who placed a dressing for mechanical debridement. On 01/07/2017 the patient had increased leukocytosis from 12,000 to 16 and the dressing was removed (1 day early) to find the wound bed, not much change. A wet to dry dressing was put on for the rest of that day. Wound care nurse saw the patient on the day of discharge and a did a cross-samaniego maneuver to allow access for medication in to help with some enzymatic debridement and recommended Iodosorb gel applied over the wound covered with Vaseline gauze and then ABD pad and then secured with paper tape to avoid further skin trauma. If other tape needed to be applied, Cavilon skin protectant should be used prior to adhesives. Due to the significant nature of the wound it was felt that the patient may need surgical debridement. Her son, who lives in the [facility], was currently en route to visit his mom, this was planned prior to her fall. She was extremely anxious about undergoing any sort of surgical intervention at this time without him present to discuss the options. The wound care nurse felt that it would be reasonable to proceed with enzymatic and mechanical debridement of the wound until her family and her could become comfortable with the idea of surgical debridement. The patient will likely need Plastics involved as this is a very large area and we do not have the specialty here at [facility]. The patient was set up with the [facility] for assessment and treatment. This is a highly functioning 86-year-old independent female and the goal would be for her to return to independent living after rehabilitation. The patient developed significant weakness after being on the floor of her house for 3-4 days and then while in the hospital physical and occupational therapy evaluated her, found her to be very weak, but also very scared of falling, which prohibited her from following directions in a manner that would make steady on her feet. It was arranged for the patient to continue physical and occupational therapy at [facility] where she will also be able to have continued wound care. On the day of discharge when the wound care nurse evaluated the wound she was able to find an area around the gluteal crease where she was able to get a culture that she did not feel would be a polymicrobial contaminated specimen. The preliminary culture is reported to me on 01/10/2017 and has +2 gram negative bacillus, and +2 diphtheroids. The patient did receive Ancef IV while in the hospital, but as she had no obvious infection and we are awaiting wound culture, this was not continued at discharge. This report was faxed to [facility], so that once organism and sensitivities are reported appropriate antibiotic therapy can be provided. The patient has no history of hypertension. While in the hospital her blood pressure remained 140-170, low dose lisinopril and hydrochlorothiazide were added and she had some improvement of her blood pressure, at discharge it was 148/78. I believe there is also an element of anxiety that causes acute hypertension as well. Goal systolic blood pressure would be maintained less than 150/90 avoiding hypotension, which could lead to orthostatic falls. WBC 20 on admission, 12.7 at discharge, hemoglobin 11.7, hematocrit 35.8, platelet count 155, neutrophils predominant leukocytosis. CHEMISTRY: Sodium 158 on arrival, 141 at discharge, potassium 4.3, chloride 109, BUN 27, creatinine 1.0, GFR 53, glucose 102, calcium 8.3, total bilirubin 0.5. AST, ALT and alkaline phosphatase within normal limits. C-reactive protein 4.0, total protein 5.3, albumin 2.3. Urinalysis with moderate occult blood and many squamous, but no signs of infection. MICRO: Wound culture 01/08/2017 with +2 gram negative bacillus, and +2 diphtheroids, subculture in isolation still in progress. IMAGING: Echocardiogram 01/03/2017: Mild concentric left ventricular hypertrophy with an EF of 50 to 55%, trace to mild aortic regurgitation and mild mitral regurgitation. 01/07/2017 CHEST X-RAY: New mild enlargement of the cardiac silhouette without overt CHF. FOLLOWUP: The patient will be transferred to [facility] for physical and occupational therapy. Prior to discharge the patient will need to be established with a primary care doctor for continuation of her medical management. Followup at the [facility] on 01/10/2017 at 1 p.m. Verbal handoff was provided to Dr. Felicitas Jhaveri prior to the patient's departure. JOB #: [id number] EXT JOB #:[id number]
== END 2017-01-08 17:00 | DRG 564 ==
LOC: EDUNIT# → ED 14:12 → MS 17:21
PROVIDERS: ADMIT Physician Assistant; ATTEND Nurse Practitioner Acute Care
DX: T79.6XXA Traumatic ischemia of muscle, initial encounter (principal); L89.153 Pressure ulcer of sacral region, stage 3; N28.9 Disorder of kidney and ureter, unspecified; L89.159 Pressure ulcer of sacral region, unspecified stage; L03.317 Cellulitis of buttock; N17.9 Acute kidney failure, unspecified; E87.0 Hyperosmolality and hypernatremia; S30.0XXA Contusion of lower back and pelvis, initial encounter; S70.12XA Contusion of left thigh, initial encounter; M25.551 Pain in right hip; W06.XXXA Fall from bed, initial encounter; Y92.003 Bedroom of unspecified non-institutional (private) residence as the place of occurrence of the external cause; I10 Essential (primary) hypertension; E86.0 Dehydration; E87.6 Hypokalemia; E86.1 Hypovolemia; F41.9 Anxiety disorder, unspecified; L89.150 Pressure ulcer of sacral region, unstageable; L89.622 Pressure ulcer of left heel, stage 2; G47.00 Insomnia, unspecified; K59.00 Constipation, unspecified; I73.9 Peripheral vascular disease, unspecified; Z60.2 Problems related to living alone; Z91.81 History of falling; Z85.828 Personal history of other malignant neoplasm of skin
CPT/HCPCS: 36415; 71010; 80053; 81001; 82550; 83605; 83690; 83735; 84132; 84295; 85025; 86140; 87070; 87077; 87086; 87205; 93306; 96361; 96365; 99284

== ENCOUNTER 2017-08-01 09:54 | Outpatient (CLI) | payer MEDICARE | END 2017-08-01 09:55 | disposition home or self-care (01) | LOC: LAB.F 09:54 | PROVIDERS: ATTEND Internal Medicine | DX: R35.1 Nocturia (principal) | CPT/HCPCS: 81001; 81003; 87086 ==

== ENCOUNTER → 2017-08-06 | Outpatient (CLI) | payer MEDICARE ==
[2017-08-06 18:42] LABS: BILIRUBIN,URINE NEGATIVE (NEGATIVE); PH,URINE 5.5 PH (5.0-7.5)
[2017-08-06 19:21] LABS: UR CULTURE IF IND INDICATED
== END ==
LOC: LAB 08:00
PROVIDERS: ATTEND Internal Medicine
DX: R35.1 Nocturia (principal)
CPT/HCPCS: 81001; 81003; 87077; 87086

== ENCOUNTER 2019-10-07 04:53 | Outpatient (CLI) | payer MEDICARE, OTHER | END 2019-10-07 04:54 | disposition critical access hospital (66) | LOC: EMS 04:53 | PROVIDERS: ATTEND Surgery | DX: R11.10 Vomiting, unspecified (principal); R19.7 Diarrhea, unspecified | CPT/HCPCS: A0425; A0427 ==

== ENCOUNTER 2019-10-07 05:27 | Inpatient (IN) | payer MEDICARE, OTHER ==
[2019-10-07] MEDS ORDERED: ONDANSETRON 4 MG/2 ML VIAL IVP STA ×2 (05:41→08:45)
[2019-10-07] MEDS ORDERED: SODIUM CHLORIDE 0.9% 1,000 ML IV STA (05:42)
--- NOTE | 2019-10-07 05:45 | ED Physician Documentation ---
PD HPI ABD PAIN - Stated complaint Stated Complaint: N/V/D - Chief complaint Chief Complaint: Abd Pain - Additional information Additional information: This is an 89-year-old female with a history of a hysterectomy who presents with abdominal discomfort in her epigastrium as well as diarrhea and vomiting. Patient states the symptoms have been ongoing for almost 2 days, and she has had difficulty keeping down any fluids. She states that she has pain in epigastrium which is severe, and non-radiating. She states that the symptoms of the abdominal pain vomiting and diarrhea all came on at once. She denies any known sick contacts. She denies chest pain or shortness of breath, no measured fever. She Does have some dysuria. She has not noticed any blood in her stool, her vomit has been dark. 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 Derm: Skin cancer surgery - Present Medications Home Medications: Ambulatory Orders Medication Instructions Recorded Confirmed Cefdinir 300 mg PO BID #14 capsule 10/07/19 Ondansetron Odt [Zofran] 4 mg TL Q6H PRN #10 tablet 10/07/19 - Allergies Allergies/Adverse Reactions: Allergies Allergy/AdvReac Type Severity Reaction Status Date / Time dye Allergy Unknown Uncoded 10/07/19 05:33 - Social History Does the pt smoke?: No Smoking Status: Never smoker Does the pt drink ETOH?: No Does the pt have substance abuse?: No PD ED PE NORMAL - Vitals Vital signs reviewed: Yes - General General: Alert and oriented X 3, No acute distress - HEENT HEENT: PERRL - Neck Neck: Supple, no meningeal sign - Cardiac Cardiac: RRR, No murmur - Respiratory Respiratory: No respiratory distress, Clear bilaterally - Abdomen Abdomen: Soft, Non distended, Other (Patient is quite tender in the upper periumbilical region and epigastrium, no right lower quadrant tenderness, no significant right upper quadrant tenderness) - Derm Derm: Warm and dry - Extremities Extremities: No deformity - Neuro Neuro: Alert and oriented X 3 - Psych Psych: Normal mood, Normal affect Results - Vitals Vitals: Vital Signs - 24 hr 10/07/19 10/07/19 10/07/19 05:28 05:53 08:51 Temperature 36.4 C L Heart Rate 74 76 61 Respiratory 16 17 Rate Blood Pressure 141/73 H 117/81 H O2 Saturation 100 98 Oxygen O2 Source Room air - Labs Labs: Laboratory Tests 10/07/19 10/07/19 10/07/19 05:51 05:51 06:30 WBC 13.4 H RBC 4.54 Hgb 12.6 Hct 39.7 MCV 87.4 MCH 27.8 MCHC 31.7 L RDW 13.7 Plt Count 326 MPV 8.6 Neut # (Auto) 11.4 H Lymph # (Auto) 0.9 L [place] # (Auto) 0.9 Eos # (Auto) 0.0 Baso # (Auto) 0.0 Absolute Nucleated RBC 0.00 Nucleated RBC % 0.0 Sodium 138 Potassium 4.4 Chloride 104 Carbon Dioxide 22 Anion Gap 12.0 BUN 49 H Creatinine 2.0 H Estimated GFR (MDRD) 24 L Glucose 126 H Calcium 9.7 Total Bilirubin 0.6 AST 11 ALT 11 Alkaline Phosphatase 62 Total Protein 7.5 Albumin 3.6 Globulin 3.9 Albumin/Globulin Ratio 0.9 L Lipase 43 Urine Color YELLOW Urine Clarity SL. CLOUDY Urine pH 5.0 Ur Specific [place] 1.025 Urine Protein TRACE Urine Glucose (UA) NEGATIVE Urine Ketones TRACE Urine Occult Blood SMALL H Urine Nitrite POSITIVE H Urine Bilirubin NEGATIVE Urine Urobilinogen 0.2 (NORMAL) Ur Leukocyte Esterase NEGATIVE Urine RBC 0-5 Urine WBC 4-5 Ur Squamous Epith Cells NONE SEEN Urine Bacteria Moderate H Urine Casts 0-2 Hyaline Casts Ur Microscopic Review INDICATED Urine Culture Comments INDICATED 10/07/19 08:38 WBC RBC Hgb Hct MCV MCH MCHC RDW Plt Count MPV Neut # (Auto) Lymph # (Auto) [place] # (Auto) Eos # (Auto) Baso # (Auto) Absolute Nucleated RBC Nucleated RBC % Sodium 139 Potassium 4.1 Chloride 105 Carbon Dioxide 20 L Anion Gap 14.0 H BUN 48 H Creatinine 1.9 H Estimated GFR (MDRD) 25 L Glucose 125 H Calcium 9.1 Total Bilirubin AST ALT Alkaline Phosphatase Total Protein Albumin Globulin Albumin/Globulin Ratio Lipase Urine Color Urine Clarity Urine pH Ur Specific [place] Urine Protein Urine Glucose (UA) Urine Ketones Urine Occult Blood Urine Nitrite Urine Bilirubin Urine Urobilinogen Ur Leukocyte Esterase Urine RBC Urine WBC Ur Squamous Epith Cells Urine Bacteria Urine Casts Ur Microscopic Review Urine Culture Comments - Rads (name of study) CT abd/pelvis WO Radiology: Other (Gallstones without CT findings of cholecystitis, no biliary dilation seen. Possible fat stranding of the pancreatic head, recommend correlation with laboratory studies, diverticulosis without diverticulitis.) PD MEDICAL DECISION MAKING - ED course Complexity details: considered differential (Cholecystitis, peptic ulcer, gastritis, UTI, pyelonephritis, bowel obstruction, diverticulitis, pancreatitis, Electrolyte abnormality) ED course: On arrival patient is uncomfortable, but hemodynamically stable. She has focal tenderness in the epigastrium. IV was inserted patient was given Zofran and flu ids, CT was obtained which was overall unrevealing, she does have some Cholelithiasis without signs of cholecystitis. She has no LFT elevations and no focal tenderness in the right upper quadrant, making biliary pathology less likely. She has an LESLIE with a creatinine of 2 up from baseline of 1 on her labs, and elevated BUN suggestive of dehydration. She also has a leukocytosis of 13. Her hemoglobin is normal, though she is dehydrated his might be artificially elevated. On repeat evaluation despite the Zofran patient had episode of vomiting, and this was very dark with coffee-ground material in it. This was sent for Gastroccult testing, though I am confident that it represents blood. Given her constellation of symptoms I am concerned that she has a ulcer that is bleeding, and she has at this point persistent vomiting with an LESLIE as well. She was admitted to the hospital under observation, and she was given pantoprazole, famotidine, and additional antiemetics while in the emergency department. She was also given ceftriaxone for nitrite positive urine, which may resent a UTI versus pyelonephritis given her symptoms. Departure - Departure Disposition: ED Place in Observation Clinical Impression: UTI (urinary tract infection) Qualifiers: Urinary tract infection type: acute pyelonephritis Qualified Code(s): N10 - Acute pyelonephritis Hematemesis Qualifiers: Nausea presence: with nausea Qualified Code(s): K92.0 - Hematemesis Condition: Good Instructions: Vomit Diarrhea Self Care, Pyelonephritis Dc Follow-Up: Jv Maciel MD [Primary Care Provider] - Within 3 Days (For recheck of symptoms and labs including creatinine) Prescriptions: Cefdinir 300 mg PO BID #14 capsule Ondansetron Odt [Zofran] 4 mg TL Q6H PRN #10 tablet PRN Reason: Nausea / Vomiting
[2019-10-07 05:56] LABS: BASOPHILS % (AUTO) 0.3 %; EOSINOPHILS % (AUTO) 0.1 %; HGB - HEMOGLOBIN 12.6 g/dL (12.0-16.0); LYMPHOCYTES # (AUTO) 0.9 10^3/uL (1.5-3.5); LYMPHOCYTES % (AUTO) 6.8 %; MEAN CORPUSCULAR HEMOGLOBIN 27.8 pg (27.0-31.0); MEAN CORPUSCULAR HGB CONC 31.7 g/dL (32.0-36.0); MEAN CORPUSCULAR VOLUME 87.4 fL (81.0-99.0); MEAN PLATELET VOLUME 8.6 fL (7.9-10.8); MONOCYTES # (AUTO) 0.9 10^3/uL (0.0-1.0); MONOCYTES % (AUTO) 6.9 %; NEUTROPHILS # (AUTO) 11.4 10^3/uL (1.5-6.6); NEUTROPHILS % (AUTO) 84.9 %; PLT - PLATELET COUNT 326 10^3/uL (130-450); RED BLOOD COUNT 4.54 10^6/uL (4.20-5.40); RED CELL DISTRIBUTION WIDTH 13.7 % (12.0-15.0); WHITE BLOOD COUNT 13.4 x10^3/uL (4.8-10.8)
[2019-10-07] MEDS ORDERED: diphenhydrAMINE INJ 50 MG/ML VIAL IVP STA (05:57)
[2019-10-07 06:08] LABS: ALBUMIN 3.6 g/dL (3.2-5.5); ALBUMIN/GLOBULIN RATIO 0.9 (1.0-2.2); BILIRUBIN,TOTAL 0.6 mg/dL (0.2-1.0); CALCIUM 9.7 mg/dL (8.5-10.3); TOTAL PROTEIN 7.5 g/dL (6.7-8.2)
[2019-10-07 06:39] LABS: BILIRUBIN,URINE NEGATIVE (NEGATIVE); GLUCOSE, URINE (UA) NEGATIVE (NEGATIVE); KETONES,URINE (UA) TRACE mg/dL (NEGATIVE); LEUKOCYTE ESTERASE, URINE NEGATIVE (NEGATIVE); NITRITE,URINE POSITIVE (NEGATIVE); OCCULT BLOOD,URINE SMALL (NEGATIVE); PROTEIN,URINE TRACE mg/dL (NEGATIVE); UROBILINOGEN,URINE 0.2 (NORMAL) E.U./dL (NORMAL)
[2019-10-07 06:52] LABS: BACTERIA,URINE Moderate /HPF (None Seen); CASTS, URINE 0-2 Hyaline Casts /LPF; CLARITY,URINE SL. CLOUDY (CLEAR); RBC,URINE 0-5 /HPF (0-5); SQUAMOUS EPITHELIAL CELL,UR NONE SEEN (<= Few)
--- NOTE | 2019-10-07 07:36 | CT Report ---
Reason: Mid abdominal pain, vomiting and diarrhea Procedure Date: 10/07/2019 Accession Number: [id number] / [id number] Procedure: CT - Abdomen/Pelvis WO CPT Code: Final Report FULL RESULT: EXAM: CT ABDOMEN AND PELVIS EXAM DATE: 10/07/2019 06:48 AM. CLINICAL HISTORY: Mid abdominal pain, vomiting and diarrhea. COMPARISONS: US COMPLETE 01/04/2017. US RENAL 08/03/2008. TECHNIQUE: Routine helical CT imaging was performed through the abdomen and pelvis. IV contrast: None. Enteric contrast: None. Reconstructions: Coronal and sagittal. In accordance with CT protocol optimization, one or more of the following dose reduction techniques were utilized for this exam: automated exposure control, adjustment of mA and/or KV based on patient size, or use of iterative reconstructive technique. FINDINGS: Lung Bases: Mild dependent atelectasis. Moderate hiatal hernia. No pleural or pericardial effusion. No cardiac enlargement. Liver: Normal. No masses. Gallbladder/Bile Ducts: Gallstone noted. No definite pericholecystic inflammation or gallbladder wall thickening. No intrahepatic or extrahepatic biliary dilation. Spleen: Normal. Pancreas: No obvious mass, atrophy or pancreatic ductal dilation. Punctate calcification is noted at the junction of the pancreas body and head. Questionable fat stranding near the uncinate process and pancreatic head. Evaluation is limited due to respiratory artifact. Adrenal Glands: Normal. Kidneys: No stones, hydronephrosis or solid renal mass on this apt-werltrjg-ridznrhw CT. Multiple wedge-shaped defects are noted in the right kidney compatible with scarring. Peritoneal Cavity/Bowel: Normal. No free fluid, free air or adenopathy. No masses or acute inflammatory process. There are multiple diverticula seen which most severely affect the sigmoid colon. No wall thickening or adjacent inflammation seen. No obstruction noted. The appendix is well visualized and normal. Remaining stomach, small bowel and large bowel are normal. Pelvic Organs: Status post hysterectomy. Status post bilateral oophorectomy. No adnexal mass lesion. No bladder stones or wall thickening. Otherwise the noncontrast images of the visualized pelvic organs are unremarkable. Vasculature: Diffuse atheromatous plaques are present in the abdominal aorta and branch vessels. No aneurysm. Normal IVC. Bones: No osteoblastic or osteolytic lesions are noted. Multilevel degenerative disk disease and facet arthropathy is noted. Moderate levoscoliosis of the lumbar spine. Other: Significant limitations due to respiratory related artifacts. IMPRESSION: 1. Significant limitations related to the absence of intravenous contrast and respiratory artifact significantly limit the evaluation of the upper abdominal organs. 2. Gallstones. No CT findings concerning for acute cholecystitis. No biliary dilation noted. 3. Questionable fat stranding near the pancreatic head. Early acute pancreatitis not excluded. Correlate clinically and with laboratory studies. No complications of acute pancreatitis such as a pseudocyst. 4. Diverticulosis. No inflammation or obstruction. RADIA
[2019-10-07] MEDS ORDERED: cefTRIAXone 1 GM in SODIUM CHLORIDE 0.9% MINIBAG 100 ML IV STA (07:44)
[2019-10-07] MEDS ORDERED: FAMOTIDINE 20 MG/2 ML VIAL IVP STA (08:17)
[2019-10-07] MEDS ORDERED: MAG HYDROX/AL HYDROX/SIMETH 30 ML UDC PO STA (08:32)
[2019-10-07] MEDS ORDERED: ONDANSETRON 4 MG/2 ML VIAL ONE (08:43)
[2019-10-07] MEDS ORDERED: PANTOPRAZOLE 40 MG VIAL IVP STA (08:45)
[2019-10-07 08:54] LABS: CALCIUM 9.1 mg/dL (8.5-10.3); CREATININE 1.9 mg/dL (0.4-1.0)
[2019-10-07] MEDS ORDERED: diltiaZEM INJ 5 MG/ML VIAL IVP STA (09:00)
[2019-10-07] MEDS ORDERED: SODIUM CHLORIDE 0.9% 1,000 ML IV ONE (09:11)
[2019-10-07] MEDS ORDERED: METOPROLOL 5 MG/5 ML VIAL IVP STA ×3 (09:14→11:10)
[2019-10-07] MEDS ORDERED: ONDANSETRON 4 MG/2 ML VIAL IVP PRN (09:15)
[2019-10-07] MEDS ORDERED: PROCHLORPERAZINE 10 MG/2 ML VIAL IVP PRN (09:15)
[2019-10-07] MEDS ORDERED: PANTOPRAZOLE 40 MG VIAL ONE (09:41)
[2019-10-07 10:15] LABS: INR 1.2 (0.8-1.2); PT - PROTHROMBIN TIME 13.3 secs (9.9-12.6)
[2019-10-07 10:20] LABS: GASTROCCULT POSITIVE (Negative)
[2019-10-07 10:23] LABS: PARTIAL THROMBOPLASTIN TIME 32.7 secs (24.9-33.3)
[2019-10-07] MEDS ORDERED: LACTATED RINGERS 500 ML IV ONE (11:10)
[2019-10-07] MEDS: SODIUM CHLORIDE FLUSH 0.9% 10 ML SYRINGE IVP PRN ×5 (11:50→22:04)
[2019-10-07 12:23] LABS: BASOPHILS # (AUTO) 0.1 10^3/uL (0.0-0.1); BASOPHILS % (AUTO) 0.3 %; EOSINOPHILS % (AUTO) 0.1 %; HGB - HEMOGLOBIN 12.3 g/dL (12.0-16.0); LYMPHOCYTES # (AUTO) 1.1 10^3/uL (1.5-3.5); MEAN CORPUSCULAR HEMOGLOBIN 28.4 pg (27.0-31.0); MEAN CORPUSCULAR HGB CONC 31.1 g/dL (32.0-36.0); MEAN CORPUSCULAR VOLUME 91.5 fL (81.0-99.0); MEAN PLATELET VOLUME 9.3 fL (7.9-10.8); MONOCYTES # (AUTO) 1.3 10^3/uL (0.0-1.0); MONOCYTES % (AUTO) 7.3 %; NEUTROPHILS # (AUTO) 15.1 10^3/uL (1.5-6.6); NEUTROPHILS % (AUTO) 85.6 %; PLT - PLATELET COUNT 280 10^3/uL (130-450); RED BLOOD COUNT 4.33 10^6/uL (4.20-5.40); RED CELL DISTRIBUTION WIDTH 13.5 % (12.0-15.0); WHITE BLOOD COUNT 17.6 x10^3/uL (4.8-10.8)
--- NOTE | 2019-10-07 12:43 | HISTORY & PHYSICAL EXAMINATION ---
Chief Complaint - Chief Complaint Chief Complaint: weakness after emesis and vomitting History of Present Illness - Admitted From Admitted From:: Home/ER - History Obtained From Records Reviewed: Lance History obtained from: son, lance and patient Exam Limitations: forgetfulness and loss of words - History of Present Illness HPI Comment/Other: She is an 89-year-old female who lives in her own home and is managing to do so because of her son. In 2017 she fell and lay on her floor in her house for 3 days. She presented with rhabdomyolysis, acute renal failure, and a large sacral ulcer because of that fall. It took the hospitalization, and many rehab facilities for her to finally get healed enough to go home. Once home she received home health therapy for strength, wound management. Her son lives in [facility], and came back to live with her after that hospitalization. He plans on living with her until the end. He describes her as stubborn, opinionated, and lives for the daily news via newspapers and books. She is very sedentary. She does get up and feed herself, dress herself, and bathe herself. The only time she takes a downturn in her health is when she gets these bouts of diarrhea. They have been happening as far back as he can remember in 2016. She is never had a colonoscopy for. Never had stool cultures for this. She is very resistant about seeing physicians. When she gets diarrhea, sometimes she gets so weak and tired from not being able to get up to the bathroom so often. She loses her appetite and compounds the problem by not eating or drinking. This is the first time she has had to be hospitalized in the middle of 1 of her episodes. There is no abdominal pain, no blood in her stool. She does take an aspirin every day.In December 2016 she was 77.1 kg. Today she is 60 kg. This episode of diarrhea started a couple of days ago. Increasing loose stools, and no antecedent history that would have caused this. As she got weaker from the diarrhea, he could not carry her to the bathroom. She began having emesis. As such she came to the emergency room. In the emergency room temperature was 36.4, heart rate was 74, blood pressure 141/73 respirations 16 with 100% room air. She was treated with IV fluids, antiemetics, and identified as having a possible UTI. Her white cell count was elevated at 17.6. But when I look in the electronic medical record her white cell count is chronically elevated. She has a normal manual differential. She has acute kidney insufficiency with a BUN of 49 and a creatinine 2.0. Baseline appears to be 27 and 1.0. While in the emergency room, she then had another episode of emesis that was coffee grounds. It is gastric occult blood positive. And she went into A. fib with RVR in the rate of 150. She does not remember ever having atrial fibrillation before. She denies chest pain, shortness of breath, cough. Her t hyroid has been normal and she takes no thyroid medication. Dr. Ellis gave her Benadryl, famotidine, Maalox, a liter of normal saline, Zofran, and Protonix IV. With the atrial fibrillation, her blood pressure has dropped to the 90s if not 80s systolic. Treatment was Cardizem 15 mg ordered but not given. Then given Lopressor 5 mg and 10 mg. He did give her ceftriaxone as well. Patient is now transferred to ICU for continued care of her A. fib with RVR, and possible GI bleed. History - Past Medical History Cardiovascular: reports: Hypertension Respiratory: reports: None Neuro: reports: None Endocrine/Autoimmune: reports: None GI: reports: Chronic diarrhea HEALTH PHYSICIST: reports: Other () : reports: Incontinence HEENT: reports: Chronic vision loss Psych: reports: Depression (very uhappy for years) Musculoskeletal: reports: Osteoarthritis Derm: reports: Other (sacral decub healed after 2017) MRSA Hx?: No - Past Surgical History /HEALTH PHYSICIST: reports: Hysterectomy Derm: reports: Skin cancer surgery - Family & Social History Family History Comment/Other: Her father in his 30s. He was electrocuted while on the job working on power lines. She was 10 years old. Mom in her 60s of kidney failure. One brother when a bomb blew off his legs in [place]. One son is overweight, high blood pressure, but otherwise healthy. Living arrangement: At home Living Situation: With family Social History Notes: Born and raised in [place]. Met her when he was stationed in [place] with the [employer]. He is and [place]. 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 Her saw the bombing of [place] from his backyard. That caused him to join the [employer] and find in World War II and also fight in the [place] War as a towboat pilot. He has been gone for several decades now. [place] and lived here for a few decades now. She smoked in the 1950s into the 1960s and quit probably around 1959 or 61. She never had any problems with alcohol abuse. She has no history of recreational substance abuse. Her son lives with her. - Substance History Use: Uses substance without health or social issues: NONE Abuse: Recurrent use of substance despite neg consequences: NONE Dependence: Experiences withdrawal or developed tolerances: NONE - POLST Patient has POLST: Yes POLST Status: DNR Meds/Allgy - Home Medications Home Medications: Ambulatory Orders Medication Instructions Recorded Confirmed Cefdinir 300 mg PO BID #14 capsule 10/07/19 Ondansetron Odt [Zofran] 4 mg TL Q6H PRN #10 tablet 10/07/19 - Allergies Allergies/Adverse Reactions: Allergies Allergy/AdvReac Type Severity Reaction Status Date / Time dye Allergy Unknown Uncoded 10/07/19 05:33 Review of Systems - Constitutional Constitutional: reports: Weakness, Poor appetite. denies: Fatigue, Fever, Chills, Malaise, Diaphoresis, Night sweats - Eyes Eyes: reports: Blurred vision, Vision loss. denies: Pain, Irritation, Amaurosis, Field loss - Ears, Nose & Throat Ears, Nose & Throat: reports: Hearing loss. denies: Ear pain, Hearing aids, Tinnitus, Vertigo, Nasal pain, Nasal discharge, Sore throat, Hoarseness - Cardiovascular Cariovascular: denies: Irregular heart rate, Palpitations, Chest pain, Edema, Syncope, Exertional dyspnea - Respiratory Respiratory: denies: Cough, Sputum production, Wheezing, SOB at rest, SOB with exertion - Gastrointestinal Gastrointestinal: reports: Diarrhea, Nausea, Vomiting, Coffee grounds emesis. denies: Abdominal pain, Abdominal distention, Constipation, Change in bowel habits, Rectal bleeding, Black stools, Bloody stools - Genitourinary Genitourinary: reports: Urgency, Incontinence. denies: Dysuria, Frequency, Hematuria, Flank pain, Nocturia, Urethral discharge - Musculoskeletal Musculoskeletal: reports: Muscle pain, Back pain, Stiffness, Joint pain, Other (She leads a very sedentary lifestyle. Does not do much more than walk from room to room, read her books or newspapers.). denies: Muscle aches, Limited range of motion, Muscle weakness, Gout - Integumentary Integumentary: denies: Rash, Pruritis, Lesions, Dryness - Neurological Neurological: reports: Memory problems, Pre-existing deficit. denies: General weakness, Focal weakness, Headache, Dizziness, Abnormal gait - Psychiatric Psychiatric: reports: Depression (For years now. Son Put his finger on what makes her unhappy other than she does not like being older, forgetting her memory, and not having her independence. She hates going to doctors and is always miserable at coming here. He had to spend at over a day talking her into coming in.) - Endocrine Endocrine: denies: Polyuria, Polydypsia - Hematologic/Lymphatic Hematologic/Lymphatic: reports: Bruising. denies: Anemia Prior Level of Functionality: Right now she is so weak she cannot get out of bed. He cannot help her ambulate to the bathroom. Usually, when she is eating, drinking, she can pay her own bills. Get up to use a walker to walk to rooms, bedroom, bathroom, dining room. She can feed herself and dress herself and bathe herself. Exam - Vital Signs Reviewed Vital Signs: Yes Vital Signs: Vital Signs x48h Temp Pulse Pulse Resp BP BP Pulse Ox 10/07/19 12:24 118 H 20 84/60 L 97 10/07/19 12:04 126 H 16 99/64 10/07/19 11:47 115/80 10/07/19 11:45 146 H 21 115/80 95 10/07/19 10:44 36.7 C 115 H 18 123/85 H 100 10/07/19 10:00 128 H 18 123/88 H 97 10/07/19 09:30 127 H 18 130/74 98 10/07/19 08:51 61 17 117/81 H 98 10/07/19 05:53 76 10/07/19 05:28 36.4 C L 74 16 141/73 H 100 - Physical Exam General Appearance: positive: No acute distress, Alert, Other (Thin, fretful, forgetful elderly woman who is cooperative, but still weak she cannot help the nurses help her transfer) Eyes Bilateral: positive: PERRL, EOMI ENT: positive: Dry mucous membranes Neck: positive: No JVD. negative: Stiff neck, Carotid bruit Respiratory: positive: Chest non-tender. negative: Wheezes, Rales, Rhonchi Cardiovascular: positive: Irregularly irregular, Tachycardia, Systolic murmur. negative: Gallop/S4, Friction rub Peripheral Pulses: positive: 1+ Abdomen: positive: No organomegaly, Nml bowel sounds, No distention, Tenderness (Vague and diffuse). negative: Guarding, Rebound Skin: positive: Warm, Dry, Pallor Extremities: positive: Non-tender, Full ROM Neurologic/Psychiatric: positive: CN's nml (2-12), Disoriented to time, Slurred/abnml speech (At times sentences or choppy, she was forgetting words. Son says this is been gradually getting worse over the last couple of years). negative: Motor nml (Generalized weakness, nonfocal), Facial droop Conclusion/Plan - Problem List (1) Hematemesis Conclusion/Plan: On her medication list that has not been reconciled, aspirin is not listed. But the son says that mom probably takes one on a daily basis. She is not an alcoholic, not a tobacco smoker, so my suspicion is that of nonsteroidal induced gastroenteritis as opposed to anything else more nefarious such as esophageal varices, neoplasm. Plan: Inpatient admission General surgery consult for EGD Every 6 hemoglobin and hematocrit INR Transfuse if drops below 8 g of hemoglobin Protonix IV twice daily Qualifiers: Nausea presence: with nausea Qualified Code(s): K92.0 - Hematemesis (2) UTI (urinary tract infection) Conclusion/Plan: Seen on urinalysis in association with diarrhea. We will aim for treating as a gram-negative infection. Plan: Await culture results Rocephin 1 g IV daily Qualifiers: Urinary tract infection type: acute cystitis Hematuria presence: without hematuria Qualified Code(s): N30.00 - Acute cystitis without hematuria (3) LESLIE (acute kidney injury) Conclusion/Plan: Secondary to intravascular depletion and prerenal azotemia. Plan: Lactated Ringer's maintenance fluid after lactated Ringer's bolus. She is already received a 1 L bolus in the emergency room. Plan on checking daily labs. (4) Dehydration Conclusion/Plan: Secondary to nausea, vomiting, diarrhea. Plan: As above for acute kidney injury (5) Chronic diarrhea Conclusion/Plan: Ongoing for possibly 5 years. So the acute infectious causes are low on my differential. Nevertheless we will check stool culture. She has had weight loss with this so she could have malabsorption. But she is not macrocytic nor is she microcytic. I would think anemia would accompany the gut malabsorption. She could have collagenous colitis. She has never had a colonoscopy and asked that she could have neoplasm. Her son doubts that he will ever talk her into getting a diagnostic colonoscopy. Plan: Stool culture Questran powder to see if that will help Imodium to see if that will help (6) Atrial fibrillation with rapid ventricular response Conclusion/Plan: New diagnosis for her. It was not present on previous admission. She rarely sees a physician. She has seen Dr. Kulkarni a couple of times, and Dr. Maciel once. No one has told her that she has atrial fibrillation. Plan: TSH Serial troponins Continue Lopressor and digoxin Echocardiogram (7) Do not resuscitate status Conclusion/Plan: ACP conversation with patient and son under separate note. (8) Protein-calorie malnutrition, severe Conclusion/Plan: she's lost 10 kg over 2 years, unintentional, with functional decline. Plan: nutrition consult. (9) Mild cognitive impairment with memory loss Conclusion/Plan: check TSH, RPR, B12. (10) Abnormal abdominal CT scan Conclusion/Plan: To ovarian seen. One is gallstone disease that is asymptomatic. But she also seems to have stranding of the pancreatic head. There are no chronic calcifications. Lipase is normal. I do not think she has pancreatitis as the cause of her diarrhea. However she does have epigastric discomfort with hematemesis. Could this be related to duodenal disease. Plan: General surgery is already going to see the patient Already on Protonix - Lab Results Lab results reviewed: Yes Fish Bones: 10/07/19 12:18 10/07/19 08:38 - EKG Results EKG Interpreted Independently: No EKG Comparison: Other (New afib w RVR) Core Measures - Anticipated LOS I expect patient to be DC'd or transferred within 96 hours.: Yes - DVT/VTE - Prophylaxis VTE/DVT Device ordered at admit?: Yes
--- NOTE | 2019-10-07 13:14 | ADVANCE CARE PLANNING NOTE ---
Advance Care Planning - Planning Encounter Date: 10/07/19 Time: 13:12 Purpose: Establish goals of care since patient was full code last admission and is a DO NOT RESUSCITATE this admission Parties in Attendance: Son Luis [phone], patient, hospitalist Decisional Capacity of the Patient: Mild cognitive deficit, mild word finding difficulties but son respects his mom's decisions for the most part. - Diagnosis for Encounter (1) Do not resuscitate status Summary: Advanced directive at home - Encounter Subjective/Patient's Story: She was born and raised in [place] and met her when he was stationed there with the [employer] 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 She is always been fiercely independent, doing things her way, and she has not changed much as she got older her son states. In 2015, when he came to visit her for a couple of months, he noted that there was some memory finding problems and word finding problems but nothing too alarming. Then in 2016 she fell, had nobody to contact, and lay on the floor for 3 days before she was found. She was admitted to the hospital and had a long hospitalization for rhabdomyolysis, acute kidney injury, and a large decubitus ulcer from where she lay on the floor. Multiple rehab visits later, she was able to get home. Home health ended up being with her when the wound finally healed. He is noticed that her memory loss is a little bit worse. But he likes to stay mentally active and he lets her figure out what to do with paying the bills since she still able to. She leads a very sedentary life where she walks from room to room, but mainly sits reading the newspaper. She is a violent anti- Trumper and he is finally put his foot down and says he refuses to discuss this with her. He does not like President Trump either but he does not want to waste his entire day discussing it. When she is not watching the news or reading about the news avidly, she is reading books. She does not garden, she does only minimal light housework. She is able to feed herself, dress herself, and bathe herself. The only time she has issues is when she gets a weeks from her intermittent chronic bouts of diarrhea that come and go and he has to help her more. Physical therapy did do work with her when she came home in . But she hated people in her house. Once they left she never returned to doing any of the exercises. So he feels like she probably did not benefit very much from them because of her refusal to cooperate. Between her hospitalization in 2017 and now, she has changed her CODE STATUS. She was initially a full code and wanted to be on life support. She hates hospitals, hates doctors, and has to be coaxed into seeing someone for routine visits. He thinks that she is seeing Dr. Nance may be twice since discharge in [address] Merlyn reid was seen once 2 weeks ago. These were. He thinks that she is very unhappy. He hesitates he used to were depressed but he thinks that is what it is. She has been like that for decades. While he is her financial power of mcat instructor, he is not her DURABLE POWER OF SECURITY POLICE OFFICER. So far he lets her guide her healthcare for herself. But he did put his foot down with this admission and make her come in because she was so weak she could not walk to the bathroom. I did ask him, since he knew her so well, what would he take for her to truly never come back to the hospital. Would be up to her, or would be up to him? Objective/Medical Story: Elderly female who is maintaining independent life in her own home until 2016 when she fell. Laid on the floor for 3 days and came in with rhabdomyolysis, kidney failure, and a large ulcer. She was able to leave her facility and go to rehab. After 6 months was able to return to home by 2018. She now returns to our emergency room with an episode of weakness because of diarrhea over the last couple of days. In the emergency room she vomited blood. Then she went into A. fib with RVR. Past medical history is that of hypertension, one , deafness, chronic vision loss. She is now admitted to the hospital for GI bleed, and rehydration of a patient who has acute kidney injury from dehydration. Son feels that my work-up of her chronic diarrhea will not be allowed by her. With that in mind I asked him a few questions about goals of care for her and she said that she was in agreement with he was saying. Goals of Care: 1. To live her life without significant pain. If she is miserable with a symptoms such as joint pain, back pain, abdominal pain, severe shortness of breath, and it is chronic, to let her go 2. If she can no longer remember her son at all, let her go 3. If she comes bedbound where she can no longer get out of bed let her ago Plan: 1 Her son and she will have further conversations about quality of life. What that means for her. 2. I have asked him to seek DURABLE POWER OF SECURITY POLICE OFFICER for healthcare matters Code Status: Do Not Attempt Resuscitation Time spent on advance care plannin
[2019-10-07] MEDS ORDERED: LIDO GARGLE 30 ML BOTTLE ONE (13:50)
--- NOTE | 2019-10-07 14:00 | ANESTHESIA ---
Pre-Anesthesia VS, & Labs - Diagnosis GI bleed - Procedure EGD Vital Signs: Temp Pulse Resp BP Pulse Ox 36.7 C 77 20 109/60 99 10/07/19 10:44 10/07/19 13:10 10/07/19 13:10 10/07/19 13:10 10/07/19 13:10 Height 5 ft 3 in Weight (kg) 60 kg Body Mass Index 24.7 - Lab Results Current Lab Results: Laboratory Tests 10/07/19 12:18: WBC 17.6 H, RBC 4.33, Hgb 12.3, Hct 39.6, MCV 91.5, MCH 28.4, MCHC 31.1 L, RDW 13.5, Plt Count 280, MPV 9.3, Neut # (Auto) 15.1 H, Lymph # (Auto) 1.1 L, Callaway # (Auto) 1.3 H, Eos # (Auto) 0.0, Baso # (Auto) 0.1, Absolute Nucleated RBC 0.00, Nucleated RBC % 0.0 10/07/19 10:50: Blood Type O POSITIVE, Antibody Screen NEGATIVE 10/07/19 08:38: Blood Type Recheck O POSITIVE 10/07/19 08:38: Sodium 139, Potassium 4.1, Chloride 105, Carbon Dioxide 20 L, Anion Gap 14.0 H, BUN 48 H, Creatinine 1.9 H, Estimated GFR (MDRD) 25 L, Glucose 125 H, Calcium 9.1 10/07/19 08:17: Troponin I High Sens 20.4 H* 10/07/19 05:52: PT 13.3 H, INR 1.2, APTT 32.7 10/07/19 05:51: Sodium 138, Potassium 4.4, Chloride 104, Carbon Dioxide 22, Anion Gap 12.0, BUN 49 H, Creatinine 2.0 H, Estimated GFR (MDRD) 24 L, Glucose 1 26 H, Calcium 9.7, Total Bilirubin 0.6, AST 11, ALT 11, Alkaline Phosphatase 62, Total Protein 7.5, Albumin 3.6, Globulin 3.9, Albumin/Globulin Ratio 0.9 L, Lipase 43 10/07/19 05:51: WBC 13.4 H, RBC 4.54, Hgb 12.6, Hct 39.7, MCV 87.4, MCH 27.8, MCHC 31.7 L, RDW 13.7, Plt Count 326, MPV 8.6, Neut # (Auto) 11.4 H, Lymph # (Auto) 0.9 L, Callaway # (Auto) 0.9, Eos # (Auto) 0.0, Baso # (Auto) 0.0, Absolute Nucleated RBC 0.00, Nucleated RBC % 0.0 Fish Bones: 10/07/19 12:18 10/07/19 08:38 Home Medications and Allergies Active Medications Digoxin (Lanoxin Inj) 250 mcg IVP QID MICHAEL Stop: 10/08/19 09:01 Ondansetron HCl (Zofran Inj) 4 mg IVP Q6HR PRN PRN Reason: Nausea / Vomiting Pantoprazole Sodium (Protonix) 40 mg IVP QDAC [facility] Prochlorperazine Edisylate (Compazine Inj) 10 mg IVP Q6HR PRN PRN Reason: Nausea / Vomiting Sodium Chloride (Normal Saline Flush 0.9%) 10 ml IVP PRN PRN PRN Reason: NEEDED PER PROVIDER ORDERS Last Admin: 10/07/19 13:43 Dose: 20 ml Sodium Chloride (Normal Saline Flush 0.9%) 10 ml IVP 0100,0900,1700 [facility] Allergies/Adverse Reactions: Allergies Allergy/AdvReac Type Severity Reaction Status Date / Time dye Allergy Unknown Uncoded 10/07/19 05:33 Anes History & Medical History - Anesthetic History Anesthesia Complications: reports: No previous complications Family history of Anesthesia Complications: Denies Family history of Malignant Hyperthermia: Denies - Medical History Cardiovascular: reports: Hypertension, Atrial fibrillation (afib but now in SR) Pulmonary: reports: None Gastrointestinal: reports: Chronic diarrhea Urinary: reports: Incontinence Neuro: reports: None Musculoskeletal: reports: Osteoarthritis Endocrine/Autoimmune: reports: None Blood Disorders: reports: None Skin: reports: Other (sacral decub healed after 2017) Smoking Status: Never smoker - Surgical History Gynecologic: Hysterectomy Dermatologic: Skin cancer surgery
--- NOTE | 2019-10-07 14:10 | ANESTHESIA PROCEDURE NOTE ---
Height and Weight: Height 5 ft 3 in Weight (kg) 60 kg Body Mass Index 24.7 Vital Signs: Temp Pulse Resp BP Pulse Ox 36.7 C 77 20 109/60 99 10/07/19 10:44 10/07/19 13:10 10/07/19 13:10 10/07/19 13:10 10/07/19 13:10 Allergies dye Allergy (Uncoded 10/07/19 05:33) Unknown Procedure Notes: Called for IV access. #20G IV started to right AC x2 attempts. Patient tolerated well.
--- NOTE | 2019-10-07 14:11 | CONSULTATION NOTE ---
Referring Provider Name of Referring Provider:: MD Fco Consult Date: 10/07/19 Chief Complaint - Chief Complaint Chief Complaint: Hematemesis History of Present Illness - Admitted From Admitted From:: ED - History Obtained From Records Reviewed: Prior admission, Provider's notes History obtained from: Patient and provider Exam Limitations: None - History of Present Illness HPI Comment/Other: Mathieu is a very pleasant 89-year-old lady who presented to the emergency room this eveningWith her son. She has a history of paroxysmal diarrhea for at least the past 3 years. These episodes resulted in profound weakness and have been associated on at least one occasion with falling. On that occasion, she lie in her house for 3 days without being able to get up and was subsequently admitted to the hospital with rhabdomyolysis and renal failure.She began having another acute episode a couple of days ago. She became weaker and weaker over the last couple of days and was eventually brought to the emergency room by her son. In the emergency room she had one episode of emesis that was witnessed to be dark brown in color. Hemoccult was positive. Mathieu has never had cultures and is never had a colonoscopy for diagnosis regarding her paroxysmal diarrhea. 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 He was electrocuted while on the job working on power lines. She was 10 years old. Mom in her 60s of kidney failure. One brother when a bomb blew off his legs in [place]. One son is overweight, high blood pressure, but otherwise healthy. Living arrangement: At home Living Situation: With family Social History Notes: Born and raised in [place]. Met her when he was stationed in [place] with the [employer]. He is and [place]. With the [employer] she lived all over on various duty stations. Her saw the bombing of [employer] from his backyard. That caused him to join the [employer] and find in World War II and also fight in the [place] War as a pilot boat operator. He has been gone for several decades now. [place] and lived here for a few decades now. She smoked in the 1950s into the 1960s and quit probably around 1960 or 62. She never had any problems with alcohol abuse. She has no history of recreational substance abuse. Her son lives with her. - Substance History Use: Uses substance without health or social issues: NONE Abuse: Recurrent use of substance despite neg consequences: NONE Dependence: Experiences withdrawal or developed tolerances: NONE - POLST Patient has POLST: Yes POLST Status: DNR Meds/Allgy - Home Medications Home Medications: Ambulatory Orders Medication Instructions Recorded Confirmed Cefdinir 300 mg PO BID #14 capsule 10/07/19 Ondansetron Odt [Zofran] 4 mg TL Q6H PRN #10 tablet 10/07/19 - Allergies Allergies/Adverse Reactions: Allergies Allergy/AdvReac Type Severity Reaction Status Date / Time dye Allergy Unknown Uncoded 10/07/19 05:33 Review of Systems - Constitutional Constitutional: reports: Fatigue, Weakness, Poor appetite - Ears, Nose & Throat Ears, Nose & Throat: reports: Vertigo - Cardiovascular Cariovascular: reports: Irregular heart rate, Palpitations, Lightheadedness, Syncope, Decr. exercise tolerance - Gastrointestinal Gastrointestinal: reports: Abdominal pain, Diarrhea, Vomiting, Coffee grounds emesis. denies: Abdominal distention, Constipation, Nausea - Genitourinary Genitourinary: denies: Dysuria, Frequency - Musculoskeletal Musculoskeletal: reports: Back pain, Muscle aches, Stiffness, Joint pain - Integumentary Integumentary: denies: Rash, Lesions - Neurological Neurological: denies: Focal weakness - Hematologic/Lymphatic Hematologic/Lymphatic: reports: Bruising Exam - Vital Signs Reviewed Vital Signs: Yes Vital Signs: Vital Signs x48h Temp Pulse Pulse Resp BP BP Pulse Ox 10/07/19 13:10 77 20 109/60 99 10/07/19 12:24 118 H 20 84/60 L 97 10/07/19 12:04 126 H 16 99/64 10/07/19 11:47 115/80 10/07/19 11:45 146 H 21 115/80 95 10/07/19 10:44 36.7 C 115 H 18 123/85 H 100 10/07/19 10:00 128 H 18 123/88 H 97 10/07/19 09:30 127 H 18 130/74 98 10/07/19 08:51 61 17 117/81 H 98 - Physical Exam General Appearance: positive: No acute distress, Alert Eyes Bilateral: positive: Normal inspection, PERRL, EOMI ENT: positive: ENT inspection nml, Pharynx nml, No signs of dehydration Neck: positive: Nml inspection, Thyroid nml, No JVD, Trachea midline Respiratory: positive: Chest non-tender, No respiratory distress Cardiovascular: positive: Regular rate & rhythm Peripheral Pulses: positive: 0 Abdomen: positive: Nml bowel sounds, Tenderness (Minimal tenderness to palpation in the midepigastrum). negative: Guarding, Rebound Back: positive: Nml inspection Skin: positive: Color nml Extremities: positive: Non-tender Neurologic/Psychiatric: positive: Oriented x3, CN's nml (2-12) Conclusion/Plan - Diagnosis Diagnosis: Upper GI Hemorrhage and chronic intermittent diarrhea - Plan Plan: 1. Recommend EGD - the patient initially agreed but then changed her mind when personnel arrived to transport her to the operating room. She says she may consider it later. Agree with PPI and supportive care. 2. Recommend stool cultures with possible colonoscopy if cultures are negative - differential includes infectious, ishcemic or autoimmune colitis or neoplasm - Lab Results Lab results reviewed: Yes Fish Bones: 10/07/19 12:18 10/07/19 08:38
[2019-10-07] MEDS: DIGOXIN 500 MCG/2 ML AMP IVP SCH ×3 (14:30→20:26)
[2019-10-07] MEDS: SODIUM CHLORIDE FLUSH 0.9% 10 ML SYRINGE IVP SCH ×2 (17:52→20:26)
[2019-10-07 18:30] LABS: BASOPHILS # (AUTO) 0.1 10^3/uL (0.0-0.1); BASOPHILS % (AUTO) 0.4 %; EOSINOPHILS # (AUTO) 0.1 10^3/uL (0.0-0.7); EOSINOPHILS % (AUTO) 0.6 %; HGB - HEMOGLOBIN 10.7 g/dL (12.0-16.0); LYMPHOCYTES # (AUTO) 1.5 10^3/uL (1.5-3.5); LYMPHOCYTES % (AUTO) 11.3 %; MEAN CORPUSCULAR HEMOGLOBIN 28.6 pg (27.0-31.0); MEAN CORPUSCULAR HGB CONC 31.8 g/dL (32.0-36.0); MEAN CORPUSCULAR VOLUME 89.8 fL (81.0-99.0); MEAN PLATELET VOLUME 8.9 fL (7.9-10.8); MONOCYTES # (AUTO) 1.3 10^3/uL (0.0-1.0); MONOCYTES % (AUTO) 9.6 %; NEUTROPHILS # (AUTO) 10.3 10^3/uL (1.5-6.6); NEUTROPHILS % (AUTO) 77.3 %; PLT - PLATELET COUNT 281 10^3/uL (130-450); RED BLOOD COUNT 3.74 10^6/uL (4.20-5.40); RED CELL DISTRIBUTION WIDTH 13.5 % (12.0-15.0); WHITE BLOOD COUNT 13.3 x10^3/uL (4.8-10.8)
[2019-10-07] MEDS: PANTOPRAZOLE 40 MG VIAL IVP SCH (20:26)
[2019-10-07] MEDS ORDERED: VANCOMYCIN PER PHARMACY 100 GM in SODIUM CHLORIDE 0.9% 250 ML IV SCH (21:00)
[2019-10-07] MEDS ORDERED: VANCOMYCIN INJ 1 GM in SODIUM CHLORIDE 0.9% 250 ML IV SCH (22:00)
[2019-10-08 00:30] LABS: BASOPHILS # (AUTO) 0.1 10^3/uL (0.0-0.1); BASOPHILS % (AUTO) 0.4 %; EOSINOPHILS # (AUTO) 0.1 10^3/uL (0.0-0.7); EOSINOPHILS % (AUTO) 0.5 %; HGB - HEMOGLOBIN 10.3 g/dL (12.0-16.0); LYMPHOCYTES # (AUTO) 1.5 10^3/uL (1.5-3.5); LYMPHOCYTES % (AUTO) 9.6 %; MEAN CORPUSCULAR HEMOGLOBIN 27.7 pg (27.0-31.0); MEAN CORPUSCULAR VOLUME 89.2 fL (81.0-99.0); MEAN PLATELET VOLUME 8.8 fL (7.9-10.8); MONOCYTES # (AUTO) 1.3 10^3/uL (0.0-1.0); MONOCYTES % (AUTO) 8.5 %; NEUTROPHILS # (AUTO) 12.7 10^3/uL (1.5-6.6); NEUTROPHILS % (AUTO) 79.9 %; PLT - PLATELET COUNT 266 10^3/uL (130-450); RED BLOOD COUNT 3.72 10^6/uL (4.20-5.40); RED CELL DISTRIBUTION WIDTH 13.7 % (12.0-15.0); WHITE BLOOD COUNT 15.9 x10^3/uL (4.8-10.8)
[2019-10-08 00:47] LABS: DIGOXIN 2.9 ng/mL
[2019-10-08 05:07] LABS: CALCIUM 8.6 mg/dL (8.5-10.3); CREATININE 1.7 mg/dL (0.4-1.0)
[2019-10-08 05:23] LABS: BASOPHILS # (AUTO) 0.1 10^3/uL (0.0-0.1); BASOPHILS % (AUTO) 0.5 %; EOSINOPHILS # (AUTO) 0.1 10^3/uL (0.0-0.7); EOSINOPHILS % (AUTO) 0.6 %; LYMPHOCYTES # (AUTO) 1.5 10^3/uL (1.5-3.5); LYMPHOCYTES % (AUTO) 9.8 %; MEAN CORPUSCULAR HEMOGLOBIN 27.7 pg (27.0-31.0); MEAN CORPUSCULAR VOLUME 89.4 fL (81.0-99.0); MEAN PLATELET VOLUME 9.1 fL (7.9-10.8); MONOCYTES # (AUTO) 1.4 10^3/uL (0.0-1.0); MONOCYTES % (AUTO) 9.2 %; NEUTROPHILS # (AUTO) 11.9 10^3/uL (1.5-6.6); NEUTROPHILS % (AUTO) 79.1 %; PLT - PLATELET COUNT 277 10^3/uL (130-450); RED BLOOD COUNT 3.97 10^6/uL (4.20-5.40); RED CELL DISTRIBUTION WIDTH 13.5 % (12.0-15.0); WHITE BLOOD COUNT 15.1 x10^3/uL (4.8-10.8)
[2019-10-08] MEDS: PANTOPRAZOLE 40 MG VIAL IVP SCH (06:47)
[2019-10-08] MEDS: SODIUM CHLORIDE FLUSH 0.9% 10 ML SYRINGE IVP PRN ×2 (06:47→06:49)
--- NOTE | 2019-10-08 08:26 | PROVIDER PROGRESS NOTE ---
Subjective - Prog Note Date Prog Note Date: 10/08/19 Prog Note Time: 15:25 - Subjective Subjective: She was sitting up in bed this morning, eating breakfast. No further episodes of hematemesis or diarrhea. None since admission. Hemoglobin started at 12.6 and is drifted to 11 today. She has not had any loose stools to submit stool for culture. When I explained that she seemed to be stable, ready for discharge if nothing else is going on, she asked about the EGD. I explained that she had turned it down twice yesterday and we had no plans to do this. She asked again why we were doing the EGD or requested to do the EGD and I explained that we were looking for the causes of her bloody emesis. Could she have gastric ulcers, gastritis from nonsteroidals, or neoplasm in a lady her age. She thought about all morning long and is now decided, with the help of her son, that she would like an EGD. Current Medications - Current Medications Current Medications: Active Medications Vancomycin HCl 500 mg/ Sodium (Chloride) 100 mls @ 100 mls/hr IV Q24H [facility] Lactobacillus Rhamnosus (Culturelle) 1 cap PO DAILY [facility] Ondansetron HCl (Zofran Inj) 4 mg IVP Q6HR PRN PRN Reason: Nausea / Vomiting Pantoprazole Sodium (Protonix) 40 mg IVP QDAC [facility] Last Admin: 10/08/19 06:47 Dose: 40 mg Prochlorperazine Edisylate (Compazine Inj) 10 mg IVP Q6HR PRN PRN Reason: Nausea / Vomiting Sodium Chloride (Normal Saline Flush 0.9%) 10 ml IVP PRN PRN PRN Reason: NEEDED PER PROVIDER ORDERS Last Admin: 10/08/19 06:49 Dose: 10 ml Sodium Chloride (Normal Saline Flush 0.9%) 10 ml IVP 0100,0900,1700 [facility] Last Admin: 10/08/19 09:23 Dose: 10 ml Objective - Vital Signs/Intake & Output Reviewed Vital Signs: Yes Vital Signs: Vital Signs Temp Pulse Resp BP Pulse Ox 10/08/19 08:00 36.4 C L 80 17 133/59 H 94 Intake & Output: Intake & Output 10/05/19 10/06/19 10/07/19 10/08/19 23:59 23:59 23:59 23:59 Intake Total 2855 100 Output Total 450 500 Balance 2405 -400 - Objective General Appearance: positive: No acute distress, Alert Eyes Bilateral: positive: PERRL ENT: positive: Pharynx nml Neck: positive: No JVD Respiratory: positive: Chest non-tender. negative: Wheezes, Rales, Rhonchi Cardiovascular: positive: Regular rate & rhythm, Systolic murmur. negative: Gallop/S4, Friction rub Abdomen: positive: Non-tender, No organomegaly, Nml bowel sounds, No distention Skin: positive: Warm, Dry Extremities: positive: Non-tender, No pedal edema Neurologic/Psychiatric: positive: CN's nml (2-12), Motor nml, Disoriented to person (at times), Disoriented to time - Lab Results Fish Bones: 10/08/19 04:30 10/08/19 04:20 Other Labs: Lab Results x24hrs 10/08/19 10/08/19 10/08/19 Range/Units 04:30 04:30 04:20 WBC 15.1 H (4.8-10.8) x10^3/uL RBC 3.97 L (4.20-5.40) 10^6/uL Hgb 11.0 L (12.0-16.0) g/dL Hct 35.5 L (37.0-47.0) % MCV 89.4 (81.0-99.0) fL MCH 27.7 (27.0-31.0) pg MCHC 31.0 L (32.0-36.0) g/dL RDW 13.5 (12.0-15.0) % Plt Count 277 (130-450) 10^3/uL MPV 9.1 (7.9-10.8) fL Neut # (Auto) 11.9 H (1.5-6.6) 10^3/uL Lymph # (Auto) 1.5 (1.5-3.5) 10^3/uL [place] # (Auto) 1.4 H (0.0-1.0) 10^3/uL Eos # (Auto) 0.1 (0.0-0.7) 10^3/uL Baso # (Auto) 0.1 (0.0-0.1) 10^3/uL Absolute Nucleated RBC 0.00 x10^3/uL Nucleated RBC % 0.0 /100WBC PT (9.9-12.6) secs INR (0.8-1.2) APTT (24.9-33.3) secs Sodium 141 (135-145) mmol/L Potassium 4.1 (3.5-5.0) mmol/L Chloride 112 H (101-111) mmol/L Carbon Dioxide 20 L (21-32) mmol/L Anion Gap 9.0 (6-13) BUN 39 H (6-20) mg/dL Creatinine 1.7 H (0.4-1.0) mg/dL Estimated GFR (MDRD) 28 L (>89) Glucose 81 (70-100) mg/dL Calcium 8.6 (8.5-10.3) mg/dL Troponin I High Sens 31.8 H* (2.3-14.8) ng/L Lipase 35 (22-51) U/L Nasal Screen MRSA (PCR) (NEGATIVE) Gastric Fluid pH Gastric Occult Blood (Negative) Last Dose Date Last Dose Time Digoxin ng/mL Blood Type Blood Type Recheck Antibody Screen 10/08/19 10/08/19 10/07/19 Range/Units 00:15 00:15 18:23 WBC 15.9 H 13.3 H (4.8-10.8) x10^3/uL RBC 3.72 L 3.74 L (4.20-5.40) 10^6/uL Hgb 10.3 L 10.7 L (12.0-16.0) g/dL Hct 33.2 L 33.6 L (37.0-47.0) % MCV 89.2 89.8 (81.0-99.0) fL MCH 27.7 28.6 (27.0-31.0) pg MCHC 31.0 L 31.8 L (32.0-36.0) g/dL RDW 13.7 13.5 (12.0-15.0) % Plt Count 266 281 (130-450) 10^3/uL MPV 8.8 8.9 (7.9-10.8) fL Neut # (Auto) 12.7 H 10.3 H (1.5-6.6) 10^3/uL Lymph # (Auto) 1.5 1.5 (1.5-3.5) 10^3/uL [place] # (Auto) 1.3 H 1.3 H (0.0-1.0) 10^3/uL Eos # (Auto) 0.1 0.1 (0.0-0.7) 10^3/uL Baso # (Auto) 0.1 0.1 (0.0-0.1) 10^3/uL Absolute Nucleated RBC 0.00 0.00 x10^3/uL Nucleated RBC % 0.0 0.0 /100WBC PT (9.9-12.6) secs INR (0.8-1.2) APTT (24.9-33.3) secs Sodium (135-145) mmol/L Potassium (3.5-5.0) mmol/L Chloride (101-111) mmol/L Carbon Dioxide (21-32) mmol/L Anion Gap (6-13) BUN (6-20) mg/dL Creatinine (0.4-1.0) mg/dL Estimated GFR (MDRD) (>89) Glucose (70-100) mg/dL Calcium (8.5-10.3) mg/dL Troponin I High Sens (2.3-14.8) ng/L Lipase (22-51) U/L Nasal Screen MRSA (PCR) (NEGATIVE) Gastric Fluid pH Gastric Occult Blood (Negative) Last Dose Date 10/07/19 Last Dose Time 2030 Digoxin 2.9 ng/mL Blood Type Blood Type Recheck Antibody Screen 10/07/19 10/07/19 10/07/19 Range/Units 14:18 12:18 12:05 WBC 17.6 H (4.8-10.8) x10^3/uL RBC 4.33 (4.20-5.40) 10^6/uL Hgb 12.3 (12.0-16.0) g/dL Hct 39.6 (37.0-47.0) % MCV 91.5 (81.0-99.0) fL MCH 28.4 (27.0-31.0) pg MCHC 31.1 L (32.0-36.0) g/dL RDW 13.5 (12.0-15.0) % Plt Count 280 (130-450) 10^3/uL MPV 9.3 (7.9-10.8) fL Neut # (Auto) 15.1 H (1.5-6.6) 10^3/uL Lymph # (Auto) 1.1 L (1.5-3.5) 10^3/uL [place] # (Auto) 1.3 H (0.0-1.0) 10^3/uL Eos # (Auto) 0.0 (0.0-0.7) 10^3/uL Baso # (Auto) 0.1 (0.0-0.1) 10^3/uL Absolute Nucleated RBC 0.00 x10^3/uL Nucleated RBC % 0.0 /100WBC PT (9.9-12.6) secs INR (0.8-1.2) APTT (24.9-33.3) secs Sodium (135-145) mmol/L Potassium (3.5-5.0) mmol/L Chloride (101-111) mmol/L Carbon Dioxide (21-32) mmol/L Anion Gap (6-13) BUN (6-20) mg/dL Creatinine (0.4-1.0) mg/dL Estimated GFR (MDRD) (>89) Glucose (70-100) mg/dL Calcium (8.5-10.3) mg/dL Troponin I High Sens 31.8 H* (2.3-14.8) ng/L Lipase (22-51) U/L Nasal Screen MRSA (PCR) POSITIVE A* (NEGATIVE) Gastric Fluid pH Gastric Occult Blood (Negative) Last Dose Date Last Dose Time Digoxin ng/mL Blood Type Blood Type Recheck Antibody Screen 10/07/19 10/07/19 10/07/19 Range/Units 10:50 09:50 08:38 WBC (4.8-10.8) x10^3/uL RBC (4.20-5.40) 10^6/uL Hgb (12.0-16.0) g/dL Hct (37.0-47.0) % MCV (81.0-99.0) fL MCH (27.0-31.0) pg MCHC (32.0-36.0) g/dL RDW (12.0-15.0) % Plt Count (130-450) 10^3/uL MPV (7.9-10.8) fL Neut # (Auto) (1.5-6.6) 10^3/uL Lymph # (Auto) (1.5-3.5) 10^3/uL [place] # (Auto) (0.0-1.0) 10^3/uL Eos # (Auto) (0.0-0.7) 10^3/uL Baso # (Auto) (0.0-0.1) 10^3/uL Absolute Nucleated RBC x10^3/uL Nucleated RBC % /100WBC PT (9.9-12.6) secs INR (0.8-1.2) APTT (24.9-33.3) secs Sodium (135-145) mmol/L Potassium (3.5-5.0) mmol/L Chloride (101-111) mmol/L Carbon Dioxide (21-32) mmol/L Anion Gap (6-13) BUN (6-20) mg/dL Creatinine (0.4-1.0) mg/dL Estimated GFR (MDRD) (>89) Glucose (70-100) mg/dL Calcium (8.5-10.3) mg/dL Troponin I High Sens (2.3-14.8) ng/L Lipase (22-51) U/L Nasal Screen MRSA (PCR) (NEGATIVE) Gastric Fluid pH 4.0 Gastric Occult Blood POSITIVE A (Negative) Last Dose Date Last Dose Time Digoxin ng/mL Blood Type O POSITIVE Blood Type Recheck O POSITIVE Antibody Screen NEGATIVE 10/07/19 10/07/19 10/07/19 Range/Units 08:38 08:17 05:52 WBC (4.8-10.8) x10^3/uL RBC (4.20-5.40) 10^6/uL Hgb (12.0-16.0) g/dL Hct (37.0-47.0) % MCV (81.0-99.0) fL MCH (27.0-31.0) pg MCHC (32.0-36.0) g/dL RDW (12.0-15.0) % Plt Count (130-450) 10^3/uL MPV (7.9-10.8) fL Neut # (Auto) (1.5-6.6) 10^3/uL Lymph # (Auto) (1.5-3.5) 10^3/uL [place] # (Auto) (0.0-1.0) 10^3/uL Eos # (Auto) (0.0-0.7) 10^3/uL Baso # (Auto) (0.0-0.1) 10^3/uL Absolute Nucleated RBC x10^3/uL Nucleated RBC % /100WBC PT 13.3 H (9.9-12.6) secs INR 1.2 (0.8-1.2) APTT 32.7 (24.9-33.3) secs Sodium 139 (135-145) mmol/L Potassium 4.1 (3.5-5.0) mmol/L Chloride 105 (101-111) mmol/L Carbon Dioxide 20 L (21-32) mmol/L Anion Gap 14.0 H (6-13) BUN 48 H (6-20) mg/dL Creatinine 1.9 H (0.4-1.0) mg/dL Estimated GFR (MDRD) 25 L (>89) Glucose 125 H (70-100) mg/dL Calcium 9.1 (8.5-10.3) mg/dL Troponin I High Sens 20.4 H* (2.3-14.8) ng/L Lipase (22-51) U/L Nasal Screen MRSA (PCR) (NEGATIVE) Gastric Fluid pH Gastric Occult Blood (Negative) Last Dose Date Last Dose Time Digoxin ng/mL Blood Type Blood Type Recheck Antibody Screen Assessment/Plan - Problem List (1) Hematemesis Impression: On her medication list that has not been reconciled, aspirin is not listed. But the son says that mom probably takes one on a daily basis. She is not an alcoholic, not a tobacco smoker, so my suspicion is that of nonsteroidal induced gastroenteritis as opposed to anything else more nefarious such as esophageal varices, neoplasm.She has not had any further vomiting or hematemesis since being admitted. Hgb has drifted down. Plan: General surgery consult for EGD Done. Patient consented and she was to have an EGD. But because she was in atrial fibrillation they wanted to put off the procedure. She then converted to sinus. When she was re-asked for consent for the EGD she refused. Today, she is amenable to EGD and will be done this afternoon. Every 6h hemoglobin and hematocrit shows her drop from 12 to 11 g of hemoglobin so relatively stable INR Was 1 Transfuse if drops below 8 g of hemoglobin Protonix IV twice daily Qualifiers: Nausea presence: with nausea Qualified Code(s): K92.0 - Hematemesis (2) UTI (urinary tract infection) Conclusion/Plan: Seen on urinalysis in association with diarrhea. We will aim for treating as a gram-negative infection. Plan: Await culture results Rocephin 1 g IV daily, Day #2 Qualifiers: Urinary tract infection type: acute cystitis Hematuria presence: without hematuria Qualified Code(s): N30.00 - Acute cystitis without hematuria (3) LESLIE (acute kidney injury) Conclusion/Plan: Secondary to intravascular depletion and prerenal azotemia. Improving. creatinine: 2.0>1.9>1.7 Plan: Lactated Ringer's maintenance fluid after lactated Ringer's bolus. She is already received a 1 L bolus in the emergency room. Plan on checking daily labs. (4) Dehydration resolving Conclusion/Plan: Secondary to nausea, vomiting, diarrhea. Plan: As above for acute kidney injury (5) Chronic diarrhea Conclusion/Plan: Ongoing for possibly 5 years. So the acute infectious causes are low on my differential. Nevertheless we will check stool culture. She has had weight loss with this so she could have malabsorption. But she is not macrocytic nor is she microcytic. I would think anemia would accompany the gut malabsorption. She could have collagenous colitis. She has never had a colonoscopy and asked that she could have neoplasm. Her son doubts that he will ever talk her into getting a diagnostic colonoscopy. Plan: Stool culture whenever she has diarrhea. Questran powder in the outpatient setting to see if that will help Imodium to see if that will help (6) Atrial fibrillation with rapid ventricular response Resolved Conclusion/Plan: New diagnosis for her. It was not present on previous admission. She rarely sees a physician. She has seen Dr. Kulkarni a couple of times, and Dr. Maciel once. No one has told her that she has atrial fibrillation. Yesterday she received Lopressor in the emergency room. I loaded her with digoxin and level is 2.5. She is received only 4 doses. She converted to sinus rhythm. Blood pressure stabilized. Most likely due to sudden fluid shifts, electrolyte shifts from her dehydration combined with mod dilated left ventricle. Plan: TSH Serial troponins 20.4> 31.8> 31.8 Continue Lopressor prn and stopped digoxin after 4 doses Echocardiogram:Preliminary report shows normal left ventricular size and function with ejection fraction 55%. Mild diastolic dysfunction. Left atrium moderately dilated. At most mild aortic regurgitation and mild mitral regurgitation. Moderate pulmonary hypertension with a PASP 47 mmHg. Normal right ventricular size and function. (7) Do not resuscitate status Conclusion/Plan: ACP conversation with patient and son under separate note. (8) Protein-calorie malnutrition, severe Conclusion/Plan: she's lost 10 kg over 2 years, unintentional, with functional decline. Plan: nutrition consult. (9) Mild cognitive impairment with memory loss Conclusion/Plan: check TSH, RPR, B12. (10) Abnormal abdominal CT scan Conclusion/Plan: To ovarian seen. One is gallstone disease that is asymptomatic. But she also seems to have stranding of the pancreatic head. There are no chronic calcifications. Lipase is normal. I do not think she has pancreatitis as the cause of her diarrhea. However she does have epigastric discomfort with hematemesis. Could this be related to duodenal disease. Plan: General surgery is already going to see the patient Already on Protonix
[2019-10-08] MEDS: DIGOXIN 500 MCG/2 ML AMP IVP SCH (09:22)
[2019-10-08] MEDS: SODIUM CHLORIDE FLUSH 0.9% 10 ML SYRINGE IVP SCH ×2 (09:23→17:00)
--- NOTE | 2019-10-08 15:40 | PHARMACY PROGRESS NOTE ---
- Therapy Status Vancomycin regimen day #: 1 (1G loading dose, followed by 500mg IV q24h) Therapy status: Awaiting steady state Basis for treatment: Empirical Treatment indication: presumed aspiration pneumonia Trough goal: 15-20 Concurrent antibiotics: none at the time of writing - LESLIE Risk Risk level for Acute Kidney Injury: High (existing LESLIE) Acute Kidney Injury risk factors: Baseline CrCl <50 (baseline in this context meaning "at time of vancomycin initiation"), Baseline BUN:SCr >20:1 (baseline in this context meaning "at time of vancomycin intiation"), Goal trough >15, Admission to ICU - Monitoring and Recommendation Clinical response to treatment: I&O Previous 24 hours 10/06/19 10/07/19 10/08/19 23:59 23:59 23:59 Intake Total 2855 520 Output Total 450 750 Balance 2405 -230 Lab Results 10/08/19 10/07/19 10/07/19 04:20 08:38 05:51 BUN 39 H 48 H 49 H Creatinine 1.7 H 1.9 H 2.0 H Estimated GFR (MDRD) 28 L 25 L 24 L Cultures 10/07/19 06:30 Urine,Catheterized Urine Culture - Preliminary Monitoring plan: Daily serum creatinine, Draw trough early, Suggest ongoing fluid replacement Next trough due prior to maintenance dose #: 3 (steady state typically reached around 5th or 6th maintenance dose) Next trough due (date/time): 10/10 @ 0 - or earlier if clinical picture changes Areas for additional monitoring: IV to PO when appropriate, Therapy de- escalation based on culture results, Acute Kidney Injury, C. difficile infection risk reduction Pharmacy recommendation: Continue current regime
[2019-10-08] MEDS: LACTOBACILLUS RHAMNOSUS GG CAPSULE PO SCH (16:00)
--- NOTE | 2019-10-08 16:26 | ANESTHESIA ---
Pre-Anesthesia VS, & Labs - Diagnosis Diagnosis Upper GI Hemorrhage and chronic intermittent diarrhea - Procedure Colonoscopy Vital Signs: Temp Pulse Resp BP Pulse Ox 37.2 C 67 19 143/55 H 95 10/08/19 16:00 10/08/19 16:00 10/08/19 16:00 10/08/19 16:00 10/08/19 16:00 Height 5 ft 3 in Weight (kg) 60 kg Body Mass Index 24.7 - Lab Results Current Lab Results: Laboratory Tests 10/08/19 04:30: Troponin I High Sens 31.8 H* 10/08/19 04:30: WBC 15.1 H, RBC 3.97 L, Hgb 11.0 L, Hct 35.5 L, MCV 89.4, MCH 27.7, MCHC 31.0 L, RDW 13.5, Plt Count 277, MPV 9.1, Neut # (Auto) 11.9 H, Lymph # (Auto) 1.5, [place] # (Auto) 1.4 H, Eos # (Auto) 0.1, Baso # (Auto) 0.1, Absolute Nucleated RBC 0.00, Nucleated RBC % 0.0 10/08/19 04:20: Sodium 141, Potassium 4.1, Chloride 112 H, Carbon Dioxide 20 L, Anion Gap 9.0, BUN 39 H, Creatinine 1.7 H, Estimated GFR (MDRD) 28 L, Glucose 81, Calcium 8.6, Lipase 35 10/08/19 00:15: Last Dose Date 10/07/19, Last Dose Time 2029, Digoxin 2.9 10/08/19 00:15: WBC 15.9 H, RBC 3.72 L, Hgb 10.3 L, Hct 33.2 L, MCV 89.2, MCH 27.7, MCHC 31.0 L, RDW 13.7, Plt Count 266, MPV 8.8, Neut # (Auto) 12.7 H, Lymph # (Auto) 1.5, [place] # (Auto) 1.3 H, Eos # (Auto) 0.1, Baso # (Auto) 0.1, Absolute Nucleated RBC 0.00, Nucleated RBC % 0.0 10/07/19 18:23: WBC 13.3 H, RBC 3.74 L, Hgb 10.7 L, Hct 33.6 L, MCV 89.8, MCH 28.6, MCHC 31.8 L, RDW 13.5, Plt Count 281, MPV 8.9, Neut # (Auto) 10.3 H, Lymph # (Auto) 1.5, [place] # (Auto) 1.3 H, Eos # (Auto) 0.1, Baso # (Auto) 0.1, Absolute Nucleated RBC 0.00, Nucleated RBC % 0.0 10/07/19 14:18: Troponin I High Sens 31.8 H* 10/07/19 12:18: WBC 17.6 H, RBC 4.33, Hgb 12.3, Hct 39.6, MCV 91.5, MCH 28.4, MCHC 31.1 L, RDW 13.5, Plt Count 280, MPV 9.3, Neut # (Auto) 15.1 H, Lymph # ( Auto) 1.1 L, [place] # (Auto) 1.3 H, Eos # (Auto) 0.0, Baso # (Auto) 0.1, Absolute Nucleated RBC 0.00, Nucleated RBC % 0.0 10/07/19 10:50: Blood Type O POSITIVE, Antibody Screen NEGATIVE 10/07/19 08:38: Blood Type Recheck O POSITIVE 10/07/19 08:38: Sodium 139, Potassium 4.1, Chloride 105, Carbon Dioxide 20 L, Anion Gap 14.0 H, BUN 48 H, Creatinine 1.9 H, Estimated GFR (MDRD) 25 L, Glucose 125 H, Calcium 9.1 10/07/19 08:17: Troponin I High Sens 20.4 H* 10/07/19 05:52: PT 13.3 H, INR 1.2, APTT 32.7 10/07/19 05:51: Sodium 138, Potassium 4.4, Chloride 104, Carbon Dioxide 22, Anion Gap 12.0, BUN 49 H, Creatinine 2.0 H, Estimated GFR (MDRD) 24 L, Glucose 126 H, Calcium 9.7, Total Bilirubin 0.6, AST 11, ALT 11, Alkaline Phosphatase 62, Total Protein 7.5, Albumin 3.6, Globulin 3.9, Albumin/Globulin Ratio 0.9 L, Lipase 43 10/07/19 05:51: WBC 13.4 H, RBC 4.54, Hgb 12.6, Hct 39.7, MCV 87.4, MCH 27.8, MCHC 31.7 L, RDW 13.7, Plt Count 326, MPV 8.6, Neut # (Auto) 11.4 H, Lymph # (Auto) 0.9 L, [place] # (Auto) 0.9, Eos # (Auto) 0.0, Baso # (Auto) 0.0, Absolute Nucleated RBC 0.00, Nucleated RBC % 0.0 Fish Bones: 10/08/19 04:30 10/08/19 04:20 Home Medications and Allergies Active Medications Vancomycin HCl 500 mg/ Sodium (Chloride) 100 mls @ 100 mls/hr IV Q24H [facility] Lactobacillus Rhamnosus (Culturelle) 1 cap PO DAILY [facility] Ondansetron HCl (Zofran Inj) 4 mg IVP Q6HR PRN PRN Reason: Nausea / Vomiting Pantoprazole Sodium (Protonix) 40 mg IVP QDAC [facility] Last Admin: 10/08/19 06:47 Dose: 40 mg Prochlorperazine Edisylate (Compazine Inj) 10 mg IVP Q6HR PRN PRN Reason: Nausea / Vomiting Sodium Chloride (Normal Saline Flush 0.9%) 10 ml IVP PRN PRN PRN Reason: NEEDED PER PROVIDER ORDERS Last Admin: 10/08/19 06:49 Dose: 10 ml Sodium Chloride (Normal Saline Flush 0.9%) 10 ml IVP 0100,0900,1700 [facility] Last Admin: 10/08/19 09:23 Dose: 10 ml Allergies/Adverse Reactions: Allergies Allergy/AdvReac Type Severity Reaction Status Date / Time dye Allergy Unknown Uncoded 10/07/19 05:33 Anes History & Medical History - Medical History Cardiovascular: reports: Hypertension Pulmonary: reports: None Gastrointestinal: reports: Chronic diarrhea Urinary: reports: Incontinence Neuro: reports: None Musculoskeletal: reports: Osteoarthritis Endocrine/Autoimmune: reports: None Blood Disorders: reports: None Skin: reports: Other (sacral decub healed after 2016) Smoking Status: Never smoker - Surgical History Gynecologic: Hysterectomy Dermatologic: Skin cancer surgery
--- NOTE | 2019-10-08 16:27 | ANESTHESIA ---
Pre-Anesthesia VS, & Labs - Diagnosis Diagnosis Upper GI Hemorrhage and chronic intermittent diarrhea - Procedure EGD Vital Signs: Temp Pulse Resp BP Pulse Ox 37.2 C 67 19 143/55 H 95 10/08/19 16:00 10/08/19 16:00 10/08/19 16:00 10/08/19 16:00 10/08/19 16:00 Height 5 ft 3 in Weight (kg) 60 kg Body Mass Index 24.7 - NPO >8 hours - Is Patient ?: No - Lab Results Current Lab Results: Laboratory Tests 10/08/19 04:30: Troponin I High Sens 31.8 H* 10/08/19 04:30: WBC 15.1 H, RBC 3.97 L, Hgb 11.0 L, Hct 35.5 L, MCV 89.4, MCH 2 7.7, MCHC 31.0 L, RDW 13.5, Plt Count 277, MPV 9.1, Neut # (Auto) 11.9 H, Lymph # (Auto) 1.5, [place] # (Auto) 1.4 H, Eos # (Auto) 0.1, Baso # (Auto) 0.1, Absolute Nucleated RBC 0.00, Nucleated RBC % 0.0 10/08/19 04:20: Sodium 141, Potassium 4.1, Chloride 112 H, Carbon Dioxide 20 L, Anion Gap 9.0, BUN 39 H, Creatinine 1.7 H, Estimated GFR (MDRD) 28 L, Glucose 81, Calcium 8.6, Lipase 35 10/08/19 00:15: Last Dose Date 10/07/19, Last Dose Time 2029, Digoxin 2.9 10/08/19 00:15: WBC 15.9 H, RBC 3.72 L, Hgb 10.3 L, Hct 33.2 L, MCV 89.2, MCH 27.7, MCHC 31.0 L, RDW 13.7, Plt Count 266, MPV 8.8, Neut # (Auto) 12.7 H, Lymph # (Auto) 1.5, [place] # (Auto) 1.3 H, Eos # (Auto) 0.1, Baso # (Auto) 0.1, Absolute Nucleated RBC 0.00, Nucleated RBC % 0.0 10/07/19 18:23: WBC 13.3 H, RBC 3.74 L, Hgb 10.7 L, Hct 33.6 L, MCV 89.8, MCH 28.6, MCHC 31.8 L, RDW 13.5, Plt Count 281, MPV 8.9, Neut # (Auto) 10.3 H, Lymph # (Auto) 1.5, [place] # (Auto) 1.3 H, Eos # (Auto) 0.1, Baso # (Auto) 0.1, Absolute Nucleated RBC 0.00, Nucleated RBC % 0.0 10/07/19 14:18: Troponin I High Sens 31.8 H* 10/07/19 12:18: WBC 17.6 H, RBC 4.33, Hgb 12.3, Hct 39.6, MCV 91.5, MCH 28.4, MCHC 31.1 L, RDW 13.5, Plt Count 280, MPV 9.3, Neut # (Auto) 15.1 H, Lymph # (Auto) 1.1 L, [place] # (Auto) 1.3 H, Eos # (Auto) 0.0, Baso # (Auto) 0.1, Absolute Nucleated RBC 0.00, Nucleated RBC % 0.0 10/07/19 10:50: Blood Type O POSITIVE, Antibody Screen NEGATIVE 10/07/19 08:38: Blood Type Recheck O POSITIVE 10/07/19 08:38: Sodium 139, Potassium 4.1, Chloride 105, Carbon Dioxide 20 L, Anion Gap 14.0 H, BUN 48 H, Creatinine 1.9 H, Estimated GFR (MDRD) 25 L, Glucose 125 H, Calcium 9.1 10/07/19 08:17: Troponin I High Sens 20.4 H* 10/07/19 05:52: PT 13.3 H, INR 1.2, APTT 32.7 10/07/19 05:51: Sodium 138, Potassium 4.4, Chloride 104, Carbon Dioxide 22, Anio n Gap 12.0, BUN 49 H, Creatinine 2.0 H, Estimated GFR (MDRD) 24 L, Glucose 126 H , Calcium 9.7, Total Bilirubin 0.6, AST 11, ALT 11, Alkaline Phosphatase 62, Total Protein 7.5, Albumin 3.6, Globulin 3.9, Albumin/Globulin Ratio 0.9 L, Lipase 43 10/07/19 05:51: WBC 13.4 H, RBC 4.54, Hgb 12.6, Hct 39.7, MCV 87.4, MCH 27.8, MCHC 31.7 L, RDW 13.7, Plt Count 326, MPV 8.6, Neut # (Auto) 11.4 H, Lymph # (Auto) 0.9 L, [place] # (Auto) 0.9, Eos # (Auto) 0.0, Baso # (Auto) 0.0, Absolute Nucleated RBC 0.00, Nucleated RBC % 0.0 Fish Bones: 10/08/19 04:30 10/08/19 04:20 Home Medications and Allergies Active Medications Vancomycin HCl 500 mg/ Sodium (Chloride) 100 mls @ 100 mls/hr IV Q24H [facility] Lactobacillus Rhamnosus (Culturelle) 1 cap PO DAILY [facility] Ondansetron HCl (Zofran Inj) 4 mg IVP Q6HR PRN PRN Reason: Nausea / Vomiting Pantoprazole Sodium (Protonix) 40 mg IVP QDAC [facility] Last Admin: 10/08/19 06:47 Dose: 40 mg Prochlorperazine Edisylate (Compazine Inj) 10 mg IVP Q6HR PRN PRN Reason: Nausea / Vomiting Sodium Chloride (Normal Saline Flush 0.9%) 10 ml IVP PRN PRN PRN Reason: NEEDED PER PROVIDER ORDERS Last Admin: 10/08/19 06:49 Dose: 10 ml Sodium Chloride (Normal Saline Flush 0.9%) 10 ml IVP 0100,0900,1700 [facility] Last Admin: 10/08/19 09:23 Dose: 10 ml Allergies/Adverse Reactions: Allergies Allergy/AdvReac Type Severity Reaction Status Date / Time dye Allergy Unknown Uncoded 10/07/19 05:33 Anes History & Medical History - Anesthetic History Anesthesia Complications: reports: No previous complications Family history of Anesthesia Complications: Denies Family history of Malignant Hyperthermia: Denies - Medical History Cardiovascular: reports: Hypertension Pulmonary: reports: None Gastrointestinal: reports: Chronic diarrhea Urinary: reports: Incontinence Neuro: reports: None Musculoskeletal: reports: Osteoarthritis Endocrine/Autoimmune: reports: None Blood Disorders: reports: None Skin: reports: Other (sacral decub healed after 2017) Smoking Status: Never smoker - Surgical History Gynecologic: Hysterectomy Dermatologic: Skin cancer surgery Exam General: Alert, Oriented x3, Cooperative Dental: WNL, Loose/Frag (several fragmented) Mouth Openin Fingerbreadth Neck Mobility: Normal Mallampati classification: II Thyromental Distance: 4-6 cm Respiratory: Lungs clear, Normal breath sounds Cardiovascular: Regular rate (irregular, appears sinus) Neurological: Normal speech Mental/Cognitive Status: Alert/Oriented X3, Normal for patient Cognitive Status: Within normal limits Plan Anesthesia Type: MAC Consent for Procedure(s) Verified and Reviewed: Yes Code Status: Attempt Resuscitation ASA classification: 2-Mild systemic disease Is this case an emergency?: Yes
[2019-10-08] MEDS ORDERED: LACTATED RINGERS 1,000 ML IV ONE (17:00)
[2019-10-08] MEDS ORDERED: VANCOMYCIN INJ 500 MG in SODIUM CHLORIDE 0.9% MINIBAG 100 ML IV SCH (22:00)
[2019-10-09] MEDS: SODIUM CHLORIDE FLUSH 0.9% 10 ML SYRINGE IVP SCH ×2 (01:39→06:38)
[2019-10-09] MEDS: PANTOPRAZOLE 40 MG VIAL IVP SCH (06:38)
--- NOTE | 2019-10-09 08:31 | Discharge Plan ---
Discharge Plan Problem Reviewed?: Yes Disposition: Home, Self Care Condition: Good Prescriptions: Cefdinir 300 mg PO BID #14 capsule Ondansetron Odt [Zofran] 4 mg TL Q6H PRN #10 tablet PRN Reason: Nausea / Vomiting Pantoprazole [Protonix] 40 mg PO DAILY #30 tablet Diet: Regular Activity Restrictions: Activity as Tolerated Shower Restrictions: No Driving Restrictions: Yes (no driving) Health Concerns: He presented to our emergency room as a patient who has been having intermittent diarrhea for several years but has no known cause. This time the diarrhea was so severe that it was starting to cause nausea and vomiting with the diarrhea. It made you so weak you had to come to the emergency room. While in the emergency room we found you to be dehydrated with a urinary tract infection. You then had vomiting of blood and you went into an irregular heartbeat called atrial fibrillation. Plan of Treatment: 1. The dehydration was treated with saline solution that we gave you intravenously. Your kidney tests are now normal and your eating normally 2. For the vomiting of blood we are starting a drug called Protonix which will reduce the amount of acid in your stomach and help heal any gastritis. He will need to take that for the next month. 3. You underwent an esophagogastroduodenoscopy to see what could have caused the vomiting of blood and they found inflammation of the esophagus. Biopsies were done and the pathology is pending. 4. The urinary tract infection was treated with IV antibiotics. You will be sent home on cefdinir to treat the infection. Please finish the antibiotics. 5. The atrial fibrillation is an irregularly irregular heart rate. It caused your heart rate to go up into the 150s. We made sure you were not having a heart attack through blood test and those were normal. We also did an ultrasound of your heart to make sure that the chambers were acting normally. Sometimes a large chamber will cause an irregularly irregular heartbeat. You do have mild loss of pump action of your heart and your ejection fraction is 55%, mild regurgitation of the aortic and mitral valves. This is caused high blood pressure in your lungs with pulmonary hypertension. And your left upper chamber is slightly enlarged which would lead you to have the atrial fibrillation. You converted back to a sinus rhythm which is a regular rhythm. Care Goals: 1. Please see the surgeon in follow-up. They will need to go over the biopsy results of the esophagus that they did. Stay on the Protonix until you see them. 2. Please see your primary care provider in follow-up. He may need to refer you to cardiology consultation for the atrial fibrillation. 3. I would also request that you see someone in follow-up for your chronic intermittent diarrhea, there may be treatment for that to make it go away. Assessment: Patient and son have reviewed goals and will follow up No Smoking: If you smoke, Please STOP! Call for help. Follow-up with: Jv Maciel MD [Primary Care Provider] - Within 3 Days (For recheck of symptoms and labs including creatinine)
[2019-10-09 08:37] VITALS: BP 163/80
[2019-10-09] MEDS: LACTOBACILLUS RHAMNOSUS GG CAPSULE PO SCH (09:07)
--- NOTE | 2019-10-09 17:22 | DISCHARGE SUMMARY ---
"Discharge Summary Admit Date: 10/07/19 Discharge Date: 10/09/19 Discharging Provider: Mary Carmen Eagle MD Primary Care Provider: Ramiro Maciel MD Code Status: Do Not Attempt Resuscitation Condition at Discharge: Good Discharge Disposition: 01 Home, Self Care - DIAGNOSES Discharge Diagnoses with Status of Each Condition: 1. Hematemesis 2. UTI 3. Acute kidney injury on chronic kidney disease stage III 4. Dehydration resolved 5. Chronic diarrhea 6. New onset atrial fibrillation with rapid ventricular response, resolved 7. Protein calorie malnutrition with 10 kg weight loss over 2 years 8. Mild cognitive impairment 9. Abnormal CT scan of abdomen 10. Chronically elevated white cell count - HPI History of Present Illness: She is an 89-year-old female who lives in her own home and is managing to do so because of her son. In 2016 she fell and lay on her floor in her house for 3 days. She presented with rhabdomyolysis, acute renal failure, and a large sacral ulcer because of that fall. It took the hospitalization, and many rehab facilities for her to finally get healed enough to go home. Once home she received home health therapy for strength, wound management. Her son lives in [facility], and came back to live with her after that hospitalization. He plans on living with her until the end. He describes her as stubborn, opinionated, and lives for the daily news via newspapers and books. She is very sedentary. She does get up and feed herself, dress herself, and bathe herself. The only time she takes a downturn in her health is when she gets these bouts of diarrhea. They have been happening as far back as he can remember in 2016. She is never had a colonoscopy for. Never had stool cultures for this. She is very resistant about seeing physicians. When she gets diarrhea, sometimes she gets so weak and tired from not being able to get up to the bathroom so often. She loses her appetite and compounds the problem by not eating or drinking. This is the first time she has had to be hospitalized in the middle of 1 of her episodes. There is no abdominal pain, no blood in her stool. She does take an aspirin every day.In December 2016 she was 77.1 kg. Today she is 60 kg. This episode of diarrhea started a couple of days ago. Increasing loose stools, and no antecedent history that would have caused this. As she got weaker from the diarrhea, he could not carry her to the bathroom. She began having emesis. As such she came to the emergency room. In the emergency room temperature was 36.4, heart rate was 74, blood pressure 141/73 respirations 16 with 100% room air. She was treated with IV fluids, antiemetics, and identified as having a possible UTI. Her white cell count was elevated at 17.6. But when I look in the electronic medical record her white cell count is chronically elevated. She has a normal manual differential. She has acute kidney insufficiency with a BUN of 49 and a creatinine 2.0. Baseline appears to be 27 and 1.0. While in the emergency room, she then had another episode of emesis that was coffee grounds. It is gastric occult blood positive. And she went into A. fib with RVR in the rate of 150. She does not remember ever having atrial fibrillation before. She denies chest pain, shortness of breath, cough. Her thyroid has been normal and she takes no thyroid medication. Dr. Ellis gave her Benadryl, famotidine, Maalox, a liter of normal saline, Zofran, and Protonix IV. With the atrial fibrillation, her blood pressure has dropped to the 90s if not 80s systolic. Treatment was Cardizem 15 mg ordered but not given. Then given Lopressor 5 mg and 10 mg. He did give her ceftriaxone as well. Patient is now transferred to ICU for continued care of her A. fib with RVR, and possible GI bleed. - CONSULTS | PROCEDURES Procedures: 1. EGD showing LA class C esophagitis, biopsy done 2. Echocardiogram with normal left ventricular size and function. Ejection fraction 55%. Mild diastolic dysfunction. Left atrium moderately dilated. Minimal aortic and mitral regurgitation. Moderate pulmonary hypertension with PASP [address] 4. Urine culture with E. coli - HOSPITAL COURSE Hospital Course: The patient was felt to be dehydrated due to her diarrhea, and vomiting. She was started on IV fluids for hydration. And acute kidney injury improved. She had an episode of hematemesis in the emergency room and every 6 hour hemoglobins were done. She did start out at 12.6 and drifted down to 11.0. She did not require blood transfusion. She was started on IV Protonix, surgery consult was obtained and she underwent an EGD which showed esophagitis. She may have Yamini esophagitis and pathology is pending at the time of discharge. We do note that the patient has had severe weight loss over the last 2 years. She is lost 10 kg. She also has a chronically elevated white cell count in the EMR. A peripheral smear slide was sent to [facility] for review of the white cells. That is pending at the time of this discharge and should be followed up on. If her peripheral smear is abnormal, a peripheral flow cytometry looking for leukemia should be sent by the primary care provider. Her initial urinary constituents showed possible infection and she was treated with Rocephin. She was switched over to Keflex at discharge. Culture showed E coli. Her atrial fibrillation was evaluated with troponins. Troponins were 20.4, 31.8, and 31.8. She is not felt to have ischemia but just demand stress from her rapid heart rate. She received Lopressor IV in the emergency room and IV Lopressor in the ICU with digoxin loading to slow her down. She slowed down enough to convert on her own and she was in normal sinus rhythm. Acute kidney injury improved. Admission creatinine was 2 and was 1.7 by the time of discharge. This patient's baseline creatinine is 1. CT scan of the abdomen showed asymptomatic gallstones. Questionable fat stranding near the pancreatic head but lipase was normal. Diverticulosis without diverticulitis. The patient initially declined doing an EGD. She was fed on the first day. The next morning she agreed to an EGD and she was kept n.p.o. for the EGD to be done. She has remained stable, eating normal food. At the time of discharge temperature is 36.4, heart rate is 68 and sinus, blood pressure 163/80. Respirations 15 and 96% on room air. She is a thin alert elderly female. Lungs are clear to auscultation and percussion. Health Tech did treat her as possible aspiration pneumonitis with vancomycin because of her vomiting but that was not continued. The abdomen is soft, scaphoid, nontender, no masses. Normal bowel sounds. The extremities are remarkable for their thinness, and decreased muscle mass. I am asking her to complete therapy for UTI with Ceftin ear, continue the Protonix. I have asked her not to take any nonsteroidals including aspirin. To take lactobacillus because of the antibiotics, and she is given Zofran for nausea. She is asked to follow-up with her primary care provider, Dr. Maciel in the next 1 to 2 weeks. And she is asked to follow-up with Dr. Lazo, general surgery, in the next month. I have asked her to consider a colonoscopy to diagnose why she has chronic diarrhea for the last 4 years. This could be contributing to her weight loss. If she has something as simple as collagenous colitis that is easily treated. Her son doubts that she will follow through with that. - ALLERGIES Allergies/Adverse Reactions: Allergies Allergy/AdvReac Type Severity Reaction Status Date / Time dye Allergy Unknown Uncoded 10/07/19 05:33 - MEDICATIONS Home Medications: Ambulatory Orders Medication Instructions Recorded Confirmed Cefdinir 300 mg PO BID #14 capsule 10/07/19 Ondansetron Odt [Zofran] 4 mg TL Q6H PRN #10 tablet 10/07/19 Lactobacillus Rhamnosus GG 1 cap PO DAILY #0 capsule 10/09/19 [Culturelle] Pantoprazole [Protonix] 40 mg PO DAILY #30 tablet 10/09/19 - LABS Result Diagrams: 10/08/19 04:30 10/08/19 04:20 - TIME SPENT Time Spent in Discharge (Minutes): 40"
== END 2019-10-09 11:50 | disposition home or self-care (01) | DRG 380 ==
LOC: EDUNIT# → ED 05:27 → ICU 09:15
PROVIDERS: ADMIT Specialist; ATTEND Specialist
PROC: 0DB38ZX Excision of Lower Esophagus, Via Natural or Artificial Opening Endoscopic, Diagnostic (ICD-10-PCS; principal; 2019-10-08 16:30)
DX: N10 Acute pyelonephritis (principal); K92.0 Hematemesis; K22.11 Ulcer of esophagus with bleeding; E43 Unspecified severe protein-calorie malnutrition; I10 Essential (primary) hypertension; N30.00 Acute cystitis without hematuria; N17.9 Acute kidney failure, unspecified; B96.20 Unspecified Escherichia coli [E. coli] as the cause of diseases classified elsewhere; E86.0 Dehydration; I48.91 Unspecified atrial fibrillation; K52.9 Noninfective gastroenteritis and colitis, unspecified; K57.30 Diverticulosis of large intestine without perforation or abscess without bleeding; Z68.23 Body mass index [BMI] 23.0-23.9, adult; F06.8 Other specified mental disorders due to known physiological condition; I12.9 Hypertensive chronic kidney disease with stage 1 through stage 4 chronic kidney disease, or unspecified chronic kidney disease; N18.3 Chronic kidney disease, stage 3 (moderate); I08.0 Rheumatic disorders of both mitral and aortic valves; I27.20 Pulmonary hypertension, unspecified; D72.829 Elevated white blood cell count, unspecified; R94.8 Abnormal results of function studies of other organs and systems; K80.80 Other cholelithiasis without obstruction; F32.9 Major depressive disorder, single episode, unspecified; R32 Unspecified urinary incontinence; M19.90 Unspecified osteoarthritis, unspecified site; H53.8 Other visual disturbances; H91.90 Unspecified hearing loss, unspecified ear; R39.15 Urgency of urination; Z66 Do not resuscitate; Z79.82 Long term (current) use of aspirin; Z85.828 Personal history of other malignant neoplasm of skin; Z91.81 History of falling; Z87.891 Personal history of nicotine dependence
CPT/HCPCS: 36415; 74176; 80048; 80053; 80162; 81001; 83690; 84484; 85025; 85610; 85730; 86850; 86900; 86901; 87077; 87086; 87150; 87181; 93005; 93306; 96361; 96365; 96375; 96376; 99284; 99285; A9270; J1200; J3370; J7120; 81003

== ENCOUNTER 2021-01-19 08:00 | Outpatient (CLI) | payer MEDICARE, OTHER | END 2021-01-19 23:59 | disposition home or self-care (01) | LOC: LAB.R 08:00 | PROVIDERS: ATTEND Emergency Medicine | DX: L97.212 Non-pressure chronic ulcer of right calf with fat layer exposed (principal) | CPT/HCPCS: 87070; 87077; 87181; 87205 ==

== ENCOUNTER 2021-04-02 04:04 | Outpatient (CLI) | payer MEDICARE, OTHER | END 2021-04-02 04:05 | disposition EMS.NT | LOC: EMS 04:04 | DX: Z04.3 Encounter for examination and observation following other accident (principal); R60.0 Localized edema ==

== ENCOUNTER 2021-04-17 11:14 | Outpatient (CLI) | payer MEDICARE, OTHER | END 2021-04-17 11:15 | disposition critical access hospital (66) | LOC: EMS 11:14 | DX: R53.1 Weakness (principal); R53.83 Other fatigue; R63.8 Other symptoms and signs concerning food and fluid intake | CPT/HCPCS: A0425; A0427 ==

== ENCOUNTER 2021-04-17 11:53 | Inpatient (IN) | payer MEDICARE, OTHER ==
[2021-04-17] MEDS ORDERED: DEXTROSE 5%-0.9% NACL 1,000 ML IV STA (12:03)
--- NOTE | 2021-04-17 12:05 | ED Physician Documentation ---
History of Present Illness - Stated complaint Stated Complaint: FAILURE TO THRIVE - Chief complaint Chief Complaint: General - History obtained from History obtained from: Patient, EMS - Additonal information Additional information: 89-year-old woman presents from home with report From EMS that she has had decreased oral intake chronically, worsening over the past 3 days. She also had a fall 3 days ago. She denies injury from this.History limited by patient dementia Collateral information obtained from sonpatient has had decreased p.o. intake chronically and worsening over the past few days. He is concerned because she has been more confused than usual although her mental status has deteriorated over time as well. Review of Systems Unable to obtain: Dementia PD PAST MEDICAL HISTORY - Past Medical History Cardiovascular: Hypertension Respiratory: None Neuro: None Endocrine/Autoimmune: None GI: Chronic diarrhea PERSONAL BANKER: Other () : Incontinence HEENT: Chronic vision loss Psych: Depression (very uhappy for years) Musculoskeletal: Osteoarthritis Derm: Other (sacral decub healed after 2016) - Past Surgical History Past Surgical History: No /PERSONAL BANKER: Hysterectomy Derm: Skin cancer surgery - Present Medications Home Medications: Ambulatory Orders Medication Instructions Recorded Confirmed Cefdinir 300 mg PO BID #14 capsule 10/07/19 Ondansetron Odt [Zofran] 4 mg TL Q6H PRN #10 tablet 10/07/19 Lactobacillus Rhamnosus GG 1 cap PO DAILY #0 capsule 10/09/19 [Culturelle] Pantoprazole [Protonix] 40 mg PO DAILY #30 tablet 10/09/19 - Allergies Allergies/Adverse Reactions: Allergies Allergy/AdvReac Type Severity Reaction Status Date / Time dye Allergy Unknown Uncoded 04/17/21 12:04 - Social History Does the pt smoke?: No Smoking Status: Never smoker Does the pt drink ETOH?: No Does the pt have substance abuse?: No - POLST Patient has POLST: Yes POLST Status: DNR PD ED PE NORMAL - Vitals Vital signs reviewed: Yes - General General: Alert and oriented X 3, No acute distress, Other (Thin and elderly appearing) - HEENT HEENT: Atraumatic, PERRL, EOMI - Neck Neck: Supple, no meningeal sign - Cardiac Cardiac: RRR - Respiratory Respiratory: No respiratory distress, Clear bilaterally - Abdomen Abdomen: Non tender, Non distended - Derm Derm: Normal color - Extremities Extremities: No deformity - Neuro Neuro: Other (Alert, mentating at baseline per son) - Psych Psych: Normal mood, Normal affect Results - Vitals Vitals: Vital Signs - 24 hr 04/17/21 04/17/21 04/17/21 11:53 12:03 14:32 Temperature 36.4 C L 36.5 C Heart Rate 77 77 93 Respiratory 20 20 23 Rate Blood Pressure 105/60 105/60 O2 Saturation 100 100 04/17/21 14:57 Temperature Heart Rate 97 Respiratory 23 Rate Blood Pressure 109/58 L O2 Saturation 100 Oxygen O2 Source Room air - EKG (time done) 1415 Rate: Rate (enter#) (89) Rhythm: NSR QRS: LVH - Labs Labs: Laboratory Tests 04/17/21 04/17/21 04/17/21 12:46 12:46 12:46 WBC 9.6 RBC 3.97 L Hgb 11.0 L Hct 34.9 L MCV 87.9 MCH 27.7 MCHC 31.5 L RDW 14.9 Plt Count 384 MPV 8.6 Neut # (Auto) 7.4 H Lymph # (Auto) 1.2 L [place] # (Auto) 0.7 Eos # (Auto) 0.2 Baso # (Auto) 0.1 Absolute Nucleated RBC 0.00 Nucleated RBC % 0.0 Sodium 137 Potassium 5.3 H Chloride 110 Carbon Dioxide 17 L Anion Gap 10.0 BUN 128 H* Creatinine 2.0 H Estimated GFR (MDRD) 23 L Glucose 234 H Calcium 9.0 Magnesium 2.3 Total Bilirubin 0.7 AST < 10 L ALT < 10 L Alkaline Phosphatase 76 Total Protein 7.4 Albumin 3.3 3.3 Globulin 4.1 Albumin/Globulin Ratio 0.8 L Lipase 63 H Urine Color Urine Clarity Urine pH Ur Specific Vancleve Urine Protein Urine Glucose (UA) Urine Ketones Urine Occult Blood Urine Nitrite Urine Bilirubin Urine Urobilinogen Ur Leukocyte Esterase Urine RBC Urine WBC Ur Squamous Epith Cells Urine Bacteria Ur Microscopic Review Urine Culture Comments 04/17/21 04/17/21 13:53 14:41 WBC RBC Hgb Hct MCV MCH MCHC RDW Plt Count MPV Neut # (Auto) Lymph # (Auto) [place] # (Auto) Eos # (Auto) Baso # (Auto) Absolute Nucleated RBC Nucleated RBC % Sodium 135 Potassium 4.9 Chloride 108 Carbon Dioxide 19 L Anion Gap 8.0 BUN 112 H* Creatinine 2.0 H Estimated GFR (MDRD) 23 L Glucose 227 H Calcium 8.5 Magnesium Total Bilirubin AST ALT Alkaline Phosphatase Total Protein Albumin Globulin Albumin/Globulin Ratio Lipase Urine Color YELLOW Urine Clarity HAZY Urine pH 5.0 Ur Specific Vancleve 1.015 Urine Protein NEGATIVE Urine Glucose (UA) NEGATIVE Urine Ketones NEGATIVE Urine Occult Blood NEGATIVE Urine Nitrite NEGATIVE Urine Bilirubin NEGATIVE Urine Urobilinogen 0.2 (NORMAL) Ur Leukocyte Esterase MODERATE H Urine RBC 0-5 Urine WBC >25 H Ur Squamous Epith Cells FEW Squamous Urine Bacteria Many H Ur Microscopic Review INDICATED Urine Culture Comments INDICATED PD MEDICAL DECISION MAKING - ED course ED course: 89-year-old woman presents with decreased p.o. intake and malnutrition, DNR with limited interventions. I discussed with her son who would like her to be admitted for IV hydration and correction of her metabolic derangement. Departure - Departure Disposition: 66 [facility] DC/Xfer Clinical Impression: LESLIE (acute kidney injury), Hyperkalemia, Decreased oral intake Discharge Date/Time: 04/17/21 16:03
[2021-04-17 12:58] LABS: BASOPHILS # (AUTO) 0.1 10^3/uL (0.0-0.1); BASOPHILS % (AUTO) 0.7 %; EOSINOPHILS # (AUTO) 0.2 10^3/uL (0.0-0.7); EOSINOPHILS % (AUTO) 1.6 %; HCT - HEMATOCRIT 34.9 % (37.0-47.0); LYMPHOCYTES # (AUTO) 1.2 10^3/uL (1.5-3.5); LYMPHOCYTES % (AUTO) 12.8 %; MEAN CORPUSCULAR HEMOGLOBIN 27.7 pg (27.0-31.0); MEAN CORPUSCULAR HGB CONC 31.5 g/dL (32.0-36.0); MEAN CORPUSCULAR VOLUME 87.9 fL (81.0-99.0); MEAN PLATELET VOLUME 8.6 fL (7.9-10.8); MONOCYTES # (AUTO) 0.7 10^3/uL (0.0-1.0); MONOCYTES % (AUTO) 7.1 %; NEUTROPHILS # (AUTO) 7.4 10^3/uL (1.5-6.6); NEUTROPHILS % (AUTO) 77.5 %; PLT - PLATELET COUNT 384 10^3/uL (130-450); RED BLOOD COUNT 3.97 10^6/uL (4.20-5.40); RED CELL DISTRIBUTION WIDTH 14.9 % (12.0-15.0); WHITE BLOOD COUNT 9.6 x10^3/uL (4.8-10.8)
[2021-04-17 13:25] LABS: ALBUMIN 3.3 g/dL (3.2-5.5); ALBUMIN/GLOBULIN RATIO 0.8 (1.0-2.2); ALKALINE PHOSPHATASE 76 IU/L (42-121); ALT ALANINE AMINOTRANSFERASE < 10 IU/L (10-60); AST ASPARTATE AMINOTRANSFERASE < 10 IU/L (10-42); BILIRUBIN,TOTAL 0.7 mg/dL (0.2-1.0); CARBON DIOXIDE - CO2 17 mmol/L (21-32); CHLORIDE 110 mmol/L (101-111); GFR - MDRD 23 (>89); GLUCOSE 234 mg/dL (70-100); LIPASE 63 U/L (22-51); MAGNESIUM 2.3 mg/dL (1.7-2.8); POTASSIUM 5.3 mmol/L (3.5-5.0); SODIUM 137 mmol/L (135-145); TOTAL PROTEIN 7.4 g/dL (6.7-8.2)
[2021-04-17 13:31] LABS: BUN - BLOOD UREA NITROGEN 128 mg/dL (6-20)
[2021-04-17] MEDS ORDERED: DEXTROSE 50% ABBOJECT 25 GM/50 ML SYRINGE IVP STA (14:07)
[2021-04-17] MEDS ORDERED: ALBUTEROL 1 PUFF INH STA (14:08)
[2021-04-17] MEDS ORDERED: INSULIN REGULAR HUMAN 100 UNIT/1 ML 10 ML MDV IVP STA (14:08)
[2021-04-17] MEDS ORDERED: CALCIUM GLUCONATE 1,000 MG in SODIUM CHLORIDE 0.9% 50 ML IV STA (14:08)
[2021-04-17 14:47] LABS: BILIRUBIN,URINE NEGATIVE (NEGATIVE); GLUCOSE, URINE (UA) NEGATIVE (NEGATIVE); KETONES,URINE (UA) NEGATIVE (NEGATIVE); LEUKOCYTE ESTERASE, URINE MODERATE (NEGATIVE); NITRITE,URINE NEGATIVE (NEGATIVE); OCCULT BLOOD,URINE NEGATIVE (NEGATIVE); PROTEIN,URINE NEGATIVE (NEGATIVE); UROBILINOGEN,URINE 0.2 (NORMAL) E.U./dL (NORMAL)
[2021-04-17 15:00] LABS: CLARITY,URINE HAZY (CLEAR)
[2021-04-17 15:02] LABS: BACTERIA,URINE Many /HPF (None Seen); RBC,URINE 0-5 /HPF (0-5); SQUAMOUS EPITHELIAL CELL,UR FEW Squamous (<= Few); WBC,URINE >25 /HPF (0-5)
[2021-04-17] MEDS ORDERED: ONDANSETRON 4 MG/2 ML VIAL IVP PRN (15:09)
[2021-04-17] MEDS ORDERED: SODIUM CHLORIDE FLUSH 0.9% 10 ML SYRINGE IVP PRN (15:09)
[2021-04-17 15:36] LABS: CALCIUM 8.5 mg/dL (8.5-10.3); POTASSIUM 4.9 mmol/L (3.5-5.0)
[2021-04-17 17:03] LABS: B. PARAPERTUSSIS- RESP PCR PAN NOT DETECTED; B. PERTUSSIS- RESP PCR PANEL NOT DETECTED; C. PNEUMONIAE- RESP PCR PANEL NOT DETECTED; CORONAVIRUS 229E-RESP PCR NOT DETECTED; CORONAVIRUS HKU1-RESP PCR NOT DETECTED; CORONAVIRUS NL63-RESP PCR NOT DETECTED; CORONAVIRUS OC43-RESP PCR NOT DETECTED; HUMAN METAPNEUMOVIRUS NOT DETECTED; INFLUENZA A- RESP PCR PANEL NOT DETECTED; INFLUENZA B - RESP PCR PANEL NOT DETECTED; M. PNEUMONIAE- RESP PCR PANEL NOT DETECTED; PARAINFLUENZA VIRUS 1 NOT DETECTED; PARAINFLUENZA VIRUS 2 NOT DETECTED; PARAINFLUENZA VIRUS 3 NOT DETECTED; PARAINFLUENZA VIRUS 4 NOT DETECTED; RHINOVIRUS/ENTEROVIRUS NOT DETECTED; RSV- RESP PCR PANEL NOT DETECTED; SARS-CoV-2 -RESP PCR PANEL NOT DETECTED
[2021-04-17] MEDS: DEXTROSE 5%-0.9% NACL 1,000 ML IV SCH (17:39)
[2021-04-17] MEDS: SODIUM CHLORIDE FLUSH 0.9% 10 ML SYRINGE IVP SCH ×2 (17:39→23:33)
--- NOTE | 2021-04-17 19:39 | HISTORY & PHYSICAL EXAMINATION ---
Chief Complaint - Chief Complaint Chief Complaint: Weakness History of Present Illness - Admitted From Admitted From:: ED - History Obtained From History obtained from: ED provider and patient - History of Present Illness HPI Comment/Other: This is an 89-year-old white female with dementia, lives with her son, has depression. There is been poor oral intake for the past several months but worse over the past 1 week. The patient has become weaker and is now bedbound. She was brought in because of marked weakness. In the ER her work-up shows acute kidney injury with BUN 128, creatinine 2.0, hyperkalemia with potassium 5.3 and EKG showing new peaked T waves. Patient received insulin, D5, calcium in the ED and the repeat potassium has improved. She can give no history whatsoever. She cannot even answer where she is. Her sentences are jumbled and on no topic. The patient is being admitted to the Hospitalist team on telemetry because of hyperkalemia with peaked T waves on EKG and for volume replacement treatment for her LESLIE. History - Past Medical History Cardiovascular: reports: Hypertension Respiratory: reports: None Neuro: reports: None Endocrine/Autoimmune: reports: None GI: reports: Chronic diarrhea WIRE WORKER: reports: Other () : reports: Incontinence HEENT: reports: Chronic vision loss Psych: reports: Depression Musculoskeletal: reports: Osteoarthritis Derm: reports: Other MRSA Hx?: Yes - Past Surgical History /WIRE WORKER: reports: Hysterectomy Derm: reports: Skin cancer surgery - Family & Social History Family History Comment/Other: Her father in his 30s. He was electrocuted while on the job working on power lines. She was 10 years old. Mom in her 60s of kidney failure. One brother when a bomb blew off his legs in [place]. One son is overweight, high blood pressure, but otherwise healthy. Social History Notes: Born and raised in [place]. Met her when he was stationed in [place] with the [employer]. He is and [place]. With the [employer] she lived all over on various duty stations. Her saw the bombing of [employer] from his backyard. That caused him to join the [employer] and find in World War II and also fight in the [place] War as a ship pilot. He has been gone for several decades now. [place] and lived here for a few decades now. She smoked in the 1950s into the 1960s and quit probably around 1960 or 61. She never had any problems with alcohol abuse. She has no history of recreational substance abuse. Her son lives with her. - Substance History Use: Uses substance without health or social issues: NONE - POLST Patient has POLST: Yes POLST Status: DNR Meds/Allgy - Home Medications Home Medications: Ambulatory Orders Medication Instructions Recorded Confirmed Cefdinir 300 mg PO BID #14 capsule 10/07/19 Ondansetron Odt [Zofran] 4 mg TL Q6H PRN #10 tablet 10/07/19 Lactobacillus Rhamnosus GG 1 cap PO DAILY #0 capsule 10/09/19 [Culturelle] Pantoprazole [Protonix] 40 mg PO DAILY #30 tablet 10/09/19 - Allergies Allergies/Adverse Reactions: Allergies Allergy/AdvReac Type Severity Reaction Status Date / Time dye Allergy Unknown Uncoded 04/17/21 12:04 Review of Systems - Constitutional Constitutional: reports: Weakness, Poor appetite - Ears, Nose & Throat Ears, Nose & Throat: reports: Hearing loss - Integumentary Integumentary: reports: Rash, Lesions - Neurological Neurological: reports: General weakness, Memory problems - All Other Systems All Other Systems: reports: Reviewed and negative Exam - Vital Signs Vital Signs: Vital Signs x48h Temp Pulse Pulse Resp BP BP Pulse Ox 04/17/21 19:21 36.6 C 92 18 140/62 H 95 04/17/21 17:10 95 16 105/57 L 100 04/17/21 14:57 97 23 109/58 L 100 04/17/21 14:32 93 23 04/17/21 12:03 36.5 C 77 20 105/60 100 04/17/21 11:53 36.4 C L 77 20 105/60 100 - Physical Exam General Appearance: positive: No acute distress, Alert (Orientd x0), Other (Thin cachectic, disheveled, ggod dentition however) Eyes Bilateral: positive: Normal inspection, EOMI ENT: positive: Dry mucous membranes, Other ([place]) Neck: positive: Nml inspection, No JVD Respiratory: positive: No respiratory distress, Breath sounds nml Cardiovascular: positive: Regular rate & rhythm, No murmur Abdomen: positive: Non-tender, No distention Skin: positive: Other (Dry scaling plaques cover red skin of the lower extremities, up to knees bilat, and some areas have weeping.) Neurologic/Psychiatric: positive: Disoriented to person, Disoriented to place, Disoriented to time Conclusion/Plan - Problem List (1) LESLIE (acute kidney injury) Conclusion/Plan: Her baseline creatinine is 1.7, now it is 2.0. She has severe BUN/creatinine ratio increased consistent with prerenal azotemia from dehydration. Start IV fluids. Avoid nephrotoxins. Follow BMP daily (2) Hyperkalemia Conclusion/Plan: Continue to treat for dangerously high sedrum potassium levels Follow BMP in about 6 hours, then daily once Potassium in acceptable range. Telemetry, watching for lethal arrhythmias. Avoid nephrotoxins and potassium-containing products. (3) Dehydration Conclusion/Plan: IV fluids Follow I's and O's; she is so dehydrated that she has not made urine for sample yet Nutrition and SW consult (4) Dementia Conclusion/Plan: Upon first impression, she has severe dementia and needs complete skilled nursing care. Assess after hydration and some nutrition. Nutrition consult. Await U/A to assess for UTI and consider leg cellulitis as infections that may be adding to her confusion. We will request Social Work to contact the family to discuss discharge to a safe location. (5) FTT (failure to thrive) in adult Conclusion/Plan: Nutrition consult, as described above, are the plan (6) Anemia Conclusion/Plan: Very likely this is from nutritional deficiencies. Follow CBC daily. If the patient is transition to comfort care or hospice, will not obtain levels to replace (B12, folate, iron stores) (7) Skin abnormalities Conclusion/Plan: The legs have peeling dry plaques, all the way up to the knees, the skin below them is red, somne areas are weeping. Will order a bath/shower. Will apply topical ointment and consider treatment of cellulitis. - Lab Results Fish Bones: 04/18/21 05:25 04/18/21 05:25
[2021-04-17] MEDS ORDERED: ZINC OXIDE 20% OINT 30 GM TUBE TOP PRN (20:26)
[2021-04-18] MEDS: ACETAMINOPHEN 325 MG TABLET PO PRN ×3 (02:18→16:30)
[2021-04-18] MEDS: DEXTROSE 5%-0.9% NACL 1,000 ML IV SCH ×2 (02:18→14:05)
[2021-04-18 05:51] LABS: BASOPHILS # (AUTO) 0.1 10^3/uL (0.0-0.1); BASOPHILS % (AUTO) 0.6 %; EOSINOPHILS # (AUTO) 0.2 10^3/uL (0.0-0.7); EOSINOPHILS % (AUTO) 1.9 %; HGB - HEMOGLOBIN 9.4 g/dL (12.0-16.0); LYMPHOCYTES # (AUTO) 1.3 10^3/uL (1.5-3.5); LYMPHOCYTES % (AUTO) 13.3 %; MEAN CORPUSCULAR HEMOGLOBIN 27.3 pg (27.0-31.0); MEAN CORPUSCULAR HGB CONC 31.3 g/dL (32.0-36.0); MEAN CORPUSCULAR VOLUME 87.2 fL (81.0-99.0); MEAN PLATELET VOLUME 8.8 fL (7.9-10.8); MONOCYTES % (AUTO) 10.2 %; NEUTROPHILS # (AUTO) 7.4 10^3/uL (1.5-6.6); NEUTROPHILS % (AUTO) 73.7 %; PLT - PLATELET COUNT 322 10^3/uL (130-450); RED BLOOD COUNT 3.44 10^6/uL (4.20-5.40); RED CELL DISTRIBUTION WIDTH 14.8 % (12.0-15.0)
[2021-04-18 06:06] LABS: CALCIUM 8.5 mg/dL (8.5-10.3); CREATININE 1.4 mg/dL (0.4-1.0); MAGNESIUM 2.1 mg/dL (1.7-2.8); POTASSIUM 4.7 mmol/L (3.5-5.0)
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
[2021-04-18] MEDS ORDERED: ceFAZolin 1 GM VIAL IVP SCH (09:30)
[2021-04-18] MEDS: cefTRIAXone 1 GM in SODIUM CHLORIDE 0.9% MINIBAG 100 ML IV SCH (09:53)
[2021-04-18] MEDS: SODIUM CHLORIDE FLUSH 0.9% 10 ML SYRINGE IVP SCH ×2 (09:54→18:56)
[2021-04-18] MEDS ORDERED: VANCOMYCIN INJ 1 GM in SODIUM CHLORIDE 0.9% 250 ML IV SCH (10:00)
--- NOTE | 2021-04-18 11:03 | PHARMACY PROGRESS NOTE ---
- Best Possible Medication History Admit Date and Time: 04/17/21 1509 Processed by: Pharmacy Medication History completed: Yes Patient Interview: Completed (PATIENT'S SON CALLED, HE WAS ABLE TO CONFIRM LISINOPRIL.) As the person ultimately responsible for medication therapy, providers are able to order a medication from an existing home medication list in [facility] via the "Reconcile Routine" prior to Confirmation of that medication by technician support engineer. Such practice is discouraged except when the physician, in their clinical judgment, deems that a medical need exists for a medication without regard to previous use.
[2021-04-18] MEDS: LACTOBACILLUS RHAMNOSUS GG CAPSULE PO SCH (16:30)
[2021-04-18] MEDS: EMOLLIENT CREAM 57 GM TUBE TOP SCH (21:31)
[2021-04-19] MEDS: DEXTROSE 5%-0.9% NACL 1,000 ML IV SCH ×2 (00:05→09:50)
[2021-04-19] MEDS: SODIUM CHLORIDE FLUSH 0.9% 10 ML SYRINGE IVP SCH ×3 (00:24→20:02)
[2021-04-19 05:36] LABS: BASOPHILS # (AUTO) 0.1 10^3/uL (0.0-0.1); BASOPHILS % (AUTO) 0.6 %; EOSINOPHILS # (AUTO) 0.4 10^3/uL (0.0-0.7); EOSINOPHILS % (AUTO) 4.8 %; HCT - HEMATOCRIT 33.4 % (37.0-47.0); HGB - HEMOGLOBIN 10.4 g/dL (12.0-16.0); LYMPHOCYTES # (AUTO) 1.3 10^3/uL (1.5-3.5); MEAN CORPUSCULAR HEMOGLOBIN 27.7 pg (27.0-31.0); MEAN CORPUSCULAR HGB CONC 31.1 g/dL (32.0-36.0); MEAN CORPUSCULAR VOLUME 88.8 fL (81.0-99.0); MEAN PLATELET VOLUME 8.8 fL (7.9-10.8); MONOCYTES % (AUTO) 10.9 %; NEUTROPHILS # (AUTO) 5.9 10^3/uL (1.5-6.6); NEUTROPHILS % (AUTO) 68.4 %; PLT - PLATELET COUNT 302 10^3/uL (130-450); RED BLOOD COUNT 3.76 10^6/uL (4.20-5.40); WHITE BLOOD COUNT 8.7 x10^3/uL (4.8-10.8)
[2021-04-19 05:59] LABS: CALCIUM 8.4 mg/dL (8.5-10.3); CREATININE 1.1 mg/dL (0.4-1.0); POTASSIUM 4.8 mmol/L (3.5-5.0)
[2021-04-19 06:16] LABS: FOLATE 5.09 ng/mL (5.90 - >24.8)
[2021-04-19] MEDS: cefTRIAXone 1 GM in SODIUM CHLORIDE 0.9% MINIBAG 100 ML IV SCH (09:50)
[2021-04-19] MEDS: PRENATAL VITAMIN TABLET PO SCH (09:54)
[2021-04-19] MEDS: LACTOBACILLUS RHAMNOSUS GG CAPSULE PO SCH (09:55)
[2021-04-19] MEDS: polyethylene glycoL 3350 17 GM PACKET PO SCH (09:55)
[2021-04-19] MEDS: FOLIC ACID 1 MG TABLET PO SCH (09:55)
[2021-04-19] MEDS: EMOLLIENT CREAM 57 GM TUBE TOP SCH ×2 (09:56→22:26)
--- NOTE | 2021-04-19 11:41 | PROVIDER PROGRESS NOTE ---
Assessment/Plan - Problem List (1) UTI (urinary tract infection) Qualifiers: Urinary tract infection type: acute cystitis Hematuria presence: without hematuria Qualified Code(s): N30.00 - Acute cystitis without hematuria Assessment/Plan: Urine culture show gram-positive bacteria, we will switch antibiotics to vancomycin only. Continue UA culture sensitivity study. Patient still has some confused, pt had acute infection including UTI and Bilaterally lower extremity cellulitis, and patient's baseline with dementia and some confused as her baseline as well per social work report. (2) Bilateral lower leg cellulitis Improved, mild erythema in bilateral lower extremities. cultures show gram- positive bacteria, switch to vancomycin only Patient has scabs, flaking plaques and several areas of weeping skin as her baseline continue treat topically as well. (3) LESLIE (acute kidney injury) Resolved, creatinine is 1.1 on today, reduce patient intravenous IV fluids to 83.3 cc/h, Since patient also has poor oral input of fluid. Continue director of laboratory operations (4) Dehydration Significantly improved, reduce intravenous IV fluids Nutrition consult ordered for today for assistance in improving oral intake. (5) Dementia Patient has history of dementia, Baseline with some confused. we Consult with PT and OT Depending on her level of improvement in mental function, and PT/OT evaluation and treatment, after the above, she might need placement for complete fdc care when she is ready for discharge. SW consult requested. (6) FTT (failure to thrive) in adult Assessment/Plan: pt ate 25% of her breakfast, poor appetite board design engineer was consulted for assisting in better oral intake (7) Protein-calorie malnutrition, severe Assessment/Plan: This patient's oral intake for 1 week was less than 50% of recommended and she has had a 6% weight loss in the past 6 months. pt ate 25% of her breakfast, poor appetite, consult with board design engineer. (8) Anemia Assessment/Plan: I suspect this is from malnutrition and now hemodilution adding to low Hgb. anemia study show folate levels is low. replacement of Folate (9) Hyperkalemia Assessment/Plan: Resolved. Continue to avoid high potassium products and continue telemetry for an additional day - Current Meds Current Meds: Current Medications Generic Name Dose Route Start Last Admin Trade Name Freq PRN Reason Stop Dose Admin Acetaminophen 650 mg 04/17/21 15:09 04/18/21 16:30 Acetaminophen 325 Mg Tablet PO 650 mg Q4HR PRN Administration Pain or Fever > 38C (100.4F) Folic Acid 1 mg 04/19/21 09:00 04/19/21 09:55 Folic Acid 1 Mg Tablet PO 1 mg DAILY MICHAEL Administration Dextrose/Sodium Chloride 1,000 mls @ 83.3 mls/hr 04/19/21 07:21 04/19/21 10:20 D5ns IV 04/20/21 07:21 83.3 mls/hr .Q12H1M MICHAEL Infusion Lactobacillus Rhamnosus 1 cap 04/18/21 16:00 04/19/21 09:55 Lactobacillus Rhamnosus Gg Capsule PO 1 cap DAILY MICHAEL Administration Multi-Ingredient Ointment 1 applic 04/18/21 21:00 04/19/21 09:56 Emollient Cream 57 Gm Tube TOP 1 applic BID MICHAEL Administration Polyethylene Glycol 17 gm 04/19/21 09:00 04/19/21 09:55 Polyethylene Glycol 3350 17 Gm Packet PO 17 gm DAILY MICHAEL Administration Multivit/Folic Acid/Iron 1 tab 04/19/21 08:00 04/19/21 09:54 Vitamin Tablet PO 1 tab DAILYWM MICHAEL Administration Sodium Chloride 10 ml 04/17/21 17:00 04/19/21 09:55 Sodium Chloride Flush 0.9% 10 Ml Syringe IVP Not Given 0100,0900,1700 MICHAEL - Lab Result Fish Bone Diagrams: 04/19/21 05:00 04/19/21 05:00 - Additional Planning My Orders: My Active Orders 04/19/21 07:21 Dextrose 5%-0.9% NaCl [D5ns] 1,000 ml IV 83.3 mls/hr 04/19/21 09:00 Folic Acid 1 mg PO DAILY Subjective - Subjective Patient Reports: Feeling Better Objective Vital Signs: Vital Signs - 24 hr 04/18/21 04/18/21 04/18/21 12:50 15:35 19:50 Temperature 36.5 C 36.8 C 36.6 C Heart Rate [ 76 81 83 Brachial] Respiratory 19 18 18 Rate Blood Pressure 113/60 100/54 L 100/52 L [Right] O2 Saturation 98 100 99 04/19/21 04/19/21 04/19/21 00:06 05:00 08:53 Temperature 36.5 C 36.6 C 36.8 C Heart Rate [ 78 84 90 Brachial] Respiratory 18 16 20 Rate Blood Pressure 124/58 L 124/61 122/66 [Right] O2 Saturation 99 100 99 Oxygen O2 Source Room air I&O (Last 24 Hrs): Intake and Output Totals x24h 04/17/21 04/18/21 04/19/21 23:59 23:59 23:59 Intake Total 1220 3990.000 2343 Output Total 300 1450 375 Balance 920 2540.000 1968 General: Alert, Cooperative, No acute distress HEENT: Atraumatic Neck: Supple Lymphatic: no adenopathy Neuro: Alert, Non Focal Cardiovascular: Regular rate, Normal S1, Normal S2 Respiratory: Chest non-tender, No respiratory distress Abdomen: Normal bowel sounds, Soft Extremities: Normal pulses - Results Results: Laboratory Results WBC 8.7 x10^3/uL (4.8-10.8) 04/19/21 05:00 RBC 3.76 10^6/uL (4.20-5.40) L 04/19/21 05:00 Hgb 10.4 g/dL (12.0-16.0) L 04/19/21 05:00 Hct 33.4 % (37.0-47.0) L 04/19/21 05:00 MCV 88.8 fL (81.0-99.0) 04/19/21 05:00 MCH 27.7 pg (27.0-31.0) 04/19/21 05:00 MCHC 31.1 g/dL (32.0-36.0) L 04/19/21 05:00 RDW 15.0 % (12.0-15.0) 04/19/21 05:00 Plt Count 302 10^3/uL (130-450) 04/19/21 05:00 MPV 8.8 fL (7.9-10.8) 04/19/21 05:00 Neut # (Auto) 5.9 10^3/uL (1.5-6.6) 04/19/21 05:00 Lymph # (Auto) 1.3 10^3/uL (1.5-3.5) L 04/19/21 05:00 [place] # (Auto) 1.0 10^3/uL (0.0-1.0) 04/19/21 05:00 Eos # (Auto) 0.4 10^3/uL (0.0-0.7) 04/19/21 05:00 Baso # (Auto) 0.1 10^3/uL (0.0-0.1) 04/19/21 05:00 Absolute Nucleated RBC 0.00 x10^3/uL 04/19/21 05:00 Nucleated RBC % 0.0 /100WBC 04/19/21 05:00 Sodium 143 mmol/L (135-145) 04/19/21 05:00 Potassium 4.8 mmol/L (3.5-5.0) 04/19/21 05:00 Chloride 119 mmol/L (101-111) H 04/19/21 05:00 Carbon Dioxide 19 mmol/L (21-32) L 04/19/21 05:00 Anion Gap 5.0 (6-13) L 04/19/21 05:00 BUN 58 mg/dL (6-20) H 04/19/21 05:00 Creatinine 1.1 mg/dL (0.4-1.0) H 04/19/21 05:00 Estimated GFR (MDRD) 47 (>89) L 04/19/21 05:00 Glucose 101 mg/dL (70-100) H 04/19/21 05:00 Calcium 8.4 mg/dL (8.5-10.3) L 04/19/21 05:00 Magnesium 2.1 mg/dL (1.7-2.8) 04/18/21 05:25 Iron 44 ug/dL (28-170) 04/19/21 05:00 TIBC 193 ug/dL (250-450) L 04/19/21 05:00 % Saturation 23 % (20-50) 04/19/21 05:00 Transferrin 138 mg/dL (192-382) L 04/19/21 05:00 Total Bilirubin 0.7 mg/dL (0.2-1.0) 04/17/21 12:46 AST < 10 IU/L (10-42) L 04/17/21 12:46 ALT < 10 IU/L (10-60) L 04/17/21 12:46 Alkaline Phosphatase 76 IU/L (42-121) 04/17/21 12:46 Total Protein 7.4 g/dL (6.7-8.2) 04/17/21 12:46 Albumin 3.3 g/dL (3.2-5.5) 04/17/21 12:46 Albumin 3.3 g/dL (3.2-5.5) 04/17/21 12:46 Globulin 4.1 g/dL (2.1-4.2) 04/17/21 12:46 Albumin/Globulin Ratio 0.8 (1.0-2.2) L 04/17/21 12:46 Lipase 63 U/L (22-51) H 04/17/21 12:46 Vitamin B12 788 pg/mL (180-914) 04/19/21 05:00 Folate 5.09 ng/mL (5.90 - >24.8) L 04/19/21 05:00 Urine Color YELLOW 04/17/21 13:53 Urine Clarity HAZY (CLEAR) 04/17/21 13:53 Urine pH 5.0 PH (5.0-7.5) 04/17/21 13:53 Ur Specific [place] 1.015 (1.002-1.030) 04/17/21 13:53 Urine Protein NEGATIVE mg/dL (NEGATIVE) 04/17/21 13:53 Urine Glucose (UA) NEGATIVE mg/dL (NEGATIVE) 04/17/21 13:53 Urine Ketones NEGATIVE mg/dL (NEGATIVE) 04/17/21 13:53 Urine Occult Blood NEGATIVE (NEGATIVE) 04/17/21 13:53 Urine Nitrite NEGATIVE (NEGATIVE) 04/17/21 13:53 Urine Bilirubin NEGATIVE (NEGATIVE) 04/17/21 13:53 Urine Urobilinogen 0.2 (NORMAL) E.U./dL (NORMAL) 04/17/21 13:53 Ur Leukocyte Esterase MODERATE (NEGATIVE) H 04/17/21 13:53 Urine RBC 0-5 /HPF (0-5) 04/17/21 13:53 Urine WBC >25 /HPF (0-5) H 04/17/21 13:53 Ur Squamous Epith Cells FEW Squamous (<= Few) 04/17/21 13:53 Urine Bacteria Many /HPF (None Seen) H 04/17/21 13:53 Ur Microscopic Review INDICATED 04/17/21 13:53 Urine Culture Comments INDICATED 04/17/21 13:53 Nasal Adenovirus (PCR) NOT DETECTED 04/17/21 15:50 Nasal B. parapertussis DNA (PCR) NOT DETECTED 04/17/21 15:50 Nasal Coronavir 229E PCR NOT DETECTED 04/17/21 15:50 Nasal Coronavir HKU1 PCR NOT DETECTED 04/17/21 15:50 Nasal Coronavir NL63 PCR NOT DETECTED 04/17/21 15:50 Nasal Coronavir OC43 PCR NOT DETECTED 04/17/21 15:50 Nasal Enterovir/Rhinovir PCR NOT DETECTED 04/17/21 15:50 Nasal Influenza B PCR NOT DETECTED 04/17/21 15:50 Nasal Influenza A PCR NOT DETECTED 04/17/21 15:50 Nasal Parainfluen 1 PCR NOT DETECTED 04/17/21 15:50 Nasal Parainfluen 2 PCR NOT DETECTED 04/17/21 15:50 Nasal Parainfluen 3 PCR NOT DETECTED 04/17/21 15:50 Nasal Parainfluen 4 PCR NOT DETECTED 04/17/21 15:50 Nasal RSV (PCR) NOT DETECTED 04/17/21 15:50 Nasal B.pertussis DNA PCR NOT DETECTED 04/17/21 15:50 Nasal C.pneumoniae (PCR) NOT DETECTED 04/17/21 15:50 Karlos Human Metapneumo PCR NOT DETECTED 04/17/21 15:50 Nasal M.pneumoniae (PCR) NOT DETECTED 04/17/21 15:50 Nasal SARS-CoV-2 (PCR) NOT DETECTED 04/17/21 15:50 - Procedures Procedures: Procedures EXCISION OF LOWER ESOPHAGUS, ENDO, DIAGN (10/07/19) ABX Reporting Has patient been on IV antibiotics over the past 48 hours?: Yes Current Medications - Current Medications Current Medications: Active Medications Acetaminophen (Acetaminophen 325 Mg Tablet) 650 mg PO Q4HR PRN PRN Reason: Pain or Fever > 38C (100.4F) Last Admin: 04/18/21 16:30 Dose: 650 mg Documented by: Folic Acid (Folic Acid 1 Mg Tablet) 1 mg PO DAILY MICHAEL Last Admin: 04/19/21 09:55 Dose: 1 mg Documented by: Vancomycin HCl 1 gm/ Sodium (Chloride) 250 mls @ 167 mls/hr IV Q36H MICHAEL Dextrose/Sodium Chloride (D5ns) 1,000 mls @ 83.3 mls/hr IV .Q12H1M MICHAEL Stop: 04/20/21 07:21 Last Infusion: 04/19/21 10:20 Dose: 83.3 mls/hr Documented by: Lactobacillus Rhamnosus (Lactobacillus Rhamnosus Gg Capsule) 1 cap PO DAILY [facility] Last Admin: 04/19/21 09:55 Dose: 1 cap Documented by: Multi-Ingredient Ointment (Zinc Oxide 20% Oint 30 Gm Tube) 1 applic TOP PRN PRN PRN Reason: Skin Care Multi-Ingredient Ointment (Emollient Cream 57 Gm Tube) 1 applic TOP BID [facility] Last Admin: 04/19/21 09:56 Dose: 1 applic Documented by: Ondansetron HCl (Ondansetron 4 Mg/2 Ml Vial) 4 mg IVP Q6HR PRN PRN Reason: Nausea / Vomiting Polyethylene Glycol (Polyethylene Glycol 3350 17 Gm Packet) 17 gm PO DAILY [facility] Last Admin: 04/19/21 09:55 Dose: 17 gm Documented by: Multivit/Folic Acid/Iron ( Vitamin Tablet) 1 tab PO DAILYWM [facility] Last Admin: 04/19/21 09:54 Dose: 1 tab Documented by: Saccharomyces Boulardii (Saccharomyces Boulardii 250 Mg Capsule) 250 mg PO BIDWM [facility] Sodium Chloride (Sodium Chloride Flush 0.9% 10 Ml Syringe) 10 ml IVP PRN PRN PRN Reason: NEEDED PER PROVIDER ORDERS Sodium Chloride (Sodium Chloride Flush 0.9% 10 Ml Syringe) 10 ml IVP 0100,0900,1700 [facility] Last Admin: 04/19/21 09:55 Dose: Not Given Documented by: lisinopriL [Zestril] 5 mg PO DAILY 04/18/21
[2021-04-19] MEDS: SACCHAROMYCES BOULARDII 250 MG CAPSULE PO SCH ×2 (12:09→16:28)
[2021-04-19] MEDS ORDERED: VANCOMYCIN INJ 1 GM in SODIUM CHLORIDE 0.9% 250 ML IV SCH (14:00)
[2021-04-20] MEDS: SODIUM CHLORIDE FLUSH 0.9% 10 ML SYRINGE IVP SCH ×3 (01:38→16:54)
[2021-04-20] MEDS: DEXTROSE 5%-0.9% NACL 1,000 ML IV SCH (07:09)
[2021-04-20] MEDS: SACCHAROMYCES BOULARDII 250 MG CAPSULE PO SCH ×2 (08:35→16:54)
[2021-04-20] MEDS: LACTOBACILLUS RHAMNOSUS GG CAPSULE PO SCH (08:36)
[2021-04-20] MEDS: FOLIC ACID 1 MG TABLET PO SCH (08:37)
[2021-04-20] MEDS: PRENATAL VITAMIN TABLET PO SCH (08:37)
[2021-04-20] MEDS: polyethylene glycoL 3350 17 GM PACKET PO SCH (08:37)
[2021-04-20] MEDS: DOCUSATE SODIUM 250 MG CAPSULE PO SCH (08:40)
[2021-04-20] MEDS: SENNA 8.6 MG TABLET PO SCH (08:40)
[2021-04-20] MEDS ORDERED: ZINC OXIDE 20% OINT 30 GM TUBE TOP SCH (10:32)
[2021-04-20] MEDS ORDERED: ZINC OXIDE 20% OINT 30 GM TUBE TOP PRN (10:33)
[2021-04-20] MEDS: DOXYCYCLINE 100 MG TABLET PO SCH ×2 (11:58→21:25)
[2021-04-20] MEDS: EMOLLIENT CREAM 57 GM TUBE TOP SCH ×2 (11:58→21:25)
--- NOTE | 2021-04-20 12:09 | PROVIDER PROGRESS NOTE ---
Assessment/Plan - Problem List (1) UTI (urinary tract infection) Qualifiers: Urinary tract infection type: acute cystitis Hematuria presence: without hematuria Qualified Code(s): N30.00 - Acute cystitis without hematuria Assessment/Plan: 04/20 UA culture is still pending, will continue antibiotics and adjust antibiotics as needed after culture and sensitivity study. pt has some confusion as her baseline. Urine culture show gram-positive bacteria, we will switch antibiotics to vancomycin only. Continue UA culture sensitivity study. Patient still has some confused, pt had acute infection including UTI and Bilaterally lower extremity cellulitis, and patient's baseline with dementia and some confused as her baseline as well per social work report. (2) Bilateral lower leg cellulitis 04/20 improved. pt has no more drainage. wound is healing and became scar tissue now. Unfortunately pt is very hard to new IV insert, and IV antibiotics was delayed. wound drainage culture in the admission show pt is MRSA. since pt's blood culture is negative for bacteremia, pt has no fever, and WBC is at normal arrange. we will witch to oral antibiotics according to sensitivity study. Continue closely monitor patient overnight, plan discharge patient to SNF according to physical therapist and occupational therapist's evaluation on tomorrow Improved, mild erythema in bilateral lower extremities. cultures show gram- positive bacteria, switch to vancomycin only Patient has scabs, flaking plaques and several areas of weeping skin as her baseline continue treat topically as well. (3) LESLIE (acute kidney injury) Resolved, creatinine is 1.1 on today, reduce patient intravenous IV fluids to 83.3 cc/h, Since patient also has poor oral input of fluid. Continue laboratory associate (4) Dehydration Significantly improved, reduce intravenous IV fluids Nutrition consult ordered for today for assistance in improving oral intake. (5) Dementia 04/20, Unfortunately patient declined to have laboratory test, Patient has some c onfused likely at his baseline from her dementia. Patient has history of dementia, Baseline with some confused. we Consult with PT and OT Depending on her level of improvement in mental function, and PT/OT evaluation and treatment, after the above, she might need placement for complete half-way care when she is ready for discharge. SW consult requested. (6) FTT (failure to thrive) in adult Assessment/Plan: pt ate 25% of her breakfast, poor appetite solar thermal installer was consulted for assisting in better oral intake (7) Protein-calorie malnutrition, severe Assessment/Plan: This patient's oral intake for 1 week was less than 50% of recommended and she has had a 6% weight loss in the past 6 months. pt ate 25% of her breakfast, poor appetite, consult with solar thermal installer. (8) Anemia Assessment/Plan: I suspect this is from malnutrition and now hemodilution adding to low Hgb. anemia study show folate levels is low. replacement of Folate (9) Hyperkalemia Assessment/Plan: Resolved. Continue to avoid high potassium products and continue telemetry for an additional day - Current Meds Current Meds: Current Medications Generic Name Dose Route Start Last Admin Trade Name Johnq PRN Reason Stop Dose Admin Acetaminophen 650 mg 04/17/21 15:09 04/18/21 16:30 Acetaminophen 325 Mg Tablet PO 650 mg Q4HR PRN Administration Pain or Fever > 38C (100.4F) Docusate Sodium 250 - 500 mg 04/20/21 09:00 04/20/21 08:40 Docusate Sodium 250 Mg Capsule PO 250 mg DAILY MICHAEL Administration Doxycycline Hyclate 100 mg 04/20/21 10:30 04/20/21 11:58 Doxycycline 100 Mg Tablet PO 100 mg BID MICHAEL Administration Folic Acid 1 mg 04/19/21 09:00 04/20/21 08:37 Folic Acid 1 Mg Tablet PO 1 mg DAILY MICHAEL Administration Lactobacillus Rhamnosus 1 cap 04/18/21 16:00 04/20/21 08:36 Lactobacillus Rhamnosus Gg Capsule PO 1 cap DAILY MICHAEL Administration Multi-Ingredient Ointment 1 applic 04/18/21 21:00 04/20/21 11:58 Emollient Cream 57 Gm Tube TOP 1 applic BID MICHAEL Administration Polyethylene Glycol 17 gm 04/19/21 09:00 04/20/21 08:37 Polyethylene Glycol 3350 17 Gm Packet PO 17 gm DAILY MICHAEL Administration Multivit/Folic Acid/Iron 1 tab 04/19/21 08:00 04/20/21 08:37 Vitamin Tablet PO 1 tab DAILYWM MICHAEL Administration Saccharomyces Boulardii 250 mg 04/19/21 11:56 04/20/21 08:35 Saccharomyces Boulardii 250 Mg Capsule PO 250 mg BIDWM MICHAEL Administration Senna 8.6 - 17.2 mg 04/20/21 09:00 04/20/21 08:40 Senna 8.6 Mg Tablet PO 8.6 mg DAILY MICHAEL Administration Sodium Chloride 10 ml 04/17/21 15:09 04/20/21 09:04 Sodium Chloride Flush 0.9% 10 Ml Syringe IVP 10 ml PRN PRN Administration NEEDED PER PROVIDER ORDERS Sodium Chloride 10 ml 04/17/21 17:00 04/20/21 08:35 Sodium Chloride Flush 0.9% 10 Ml Syringe IVP Not Given 0100,0900,1700 MICHAEL - Lab Result Fish Bone Diagrams: 04/19/21 05:00 04/19/21 05:00 - Additional Planning My Orders: My Active Orders 04/19/21 11:56 Saccharomyces Boulardii [Florastor] 250 mg PO BIDWM 04/20/21 09:00 Docusate Sodium 250Mg Capsule [Colace 250Mg Capsule] 250 - 500 mg PO DAILY Senna [Senokot] 8.6 - 17.2 mg PO DAILY 04/20/21 10:30 Doxycycline [Vibramycin] 100 mg PO BID 04/20/21 10:33 Zinc Oxide 20% Oint [Zinc Oxide] 1 applic TOP QID PRN 04/20/21 11:00 Bacitracin Zinc Oint [Bacitracin] 1 applic TOP BID Subjective - Subjective Nursing Reports: No Complaints, Confused Objective Vital Signs: Vital Signs - 24 hr 04/19/21 04/19/21 04/19/21 13:21 13:25 15:54 Temperature 37.0 C Heart Rate [ 104 H 104 H Activity] Heart Rate [ 78 Brachial] Heart Rate [ 87 87 Sitting] Respiratory 18 Rate Blood Pressure 144/67 H 144/67 H [Activity] Blood Pressure [Left Brachial artery] Blood Pressure 141/57 H [Right Brachial artery] Blood Pressure 137/73 H 137/73 H [Sitting] O2 Saturation 95 O2 Saturation [ 104 H Activity] O2 Saturation [ 100 Sitting] 04/19/21 04/20/21 04/20/21 21:00 01:00 04:50 Temperature 36.7 C 36.4 C L 36.6 C Heart Rate [ Activity] Heart Rate [ 83 99 89 Brachial] Heart Rate [ Sitting] Respiratory 15 17 16 Rate Blood Pressure [Activity] Blood Pressure [Left Brachial artery] Blood Pressure 123/65 127/98 H 134/58 H [Right Brachial artery] Blood Pressure [Sitting] O2 Saturation 100 98 99 O2 Saturation [ Activity] O2 Saturation [ Sitting] 04/20/21 08:12 Temperature 36.4 C L Heart Rate [ Activity] Heart Rate [ 91 Brachial] Heart Rate [ Sitting] Respiratory 18 Rate Blood Pressure [Activity] Blood Pressure 133/70 H [Left Brachial artery] Blood Pressure [Right Brachial artery] Blood Pressure [Sitting] O2 Saturation 100 O2 Saturation [ Activity] O2 Saturation [ Sitting] Oxygen O2 Source Room air I&O (Last 24 Hrs): Intake and Output Totals x24h 04/18/21 04/19/21 04/20/21 23:59 23:59 23:59 Intake Total 3990.000 3374.793 823.207 Output Total 1450 975 400 Balance 2540.000 2399.793 423.207 General: Alert, Cooperative, No acute distress HEENT: Atraumatic Neck: Supple Lymphatic: no adenopathy Neuro: Alert, Non Focal Cardiovascular: Regular rate, Normal S1, Normal S2 Respiratory: Chest non-tender, No respiratory distress Abdomen: Normal bowel sounds, Soft, No tenderness Extremities: Normal pulses Skin: No breakdown Comments/Notes: There is scar tissue at pt's bilateral lower extremities drainage sites, mild erythema without obvious swelling. pt denies pain and fever. - Results Results: Laboratory Results WBC 8.7 x10^3/uL (4.8-10.8) 04/19/21 05:00 RBC 3.76 10^6/uL (4.20-5.40) L 04/19/21 05:00 Hgb 10.4 g/dL (12.0-16.0) L 04/19/21 05:00 Hct 33.4 % (37.0-47.0) L 04/19/21 05:00 MCV 88.8 fL (81.0-99.0) 04/19/21 05:00 MCH 27.7 pg (27.0-31.0) 04/19/21 05:00 MCHC 31.1 g/dL (32.0-36.0) L 04/19/21 05:00 RDW 15.0 % (12.0-15.0) 04/19/21 05:00 Plt Count 302 10^3/uL (130-450) 04/19/21 05:00 MPV 8.8 fL (7.9-10.8) 04/19/21 05:00 Neut # (Auto) 5.9 10^3/uL (1.5-6.6) 04/19/21 05:00 Lymph # (Auto) 1.3 10^3/uL (1.5-3.5) L 04/19/21 05:00 [place] # (Auto) 1.0 10^3/uL (0.0-1.0) 04/19/21 05:00 Eos # (Auto) 0.4 10^3/uL (0.0-0.7) 04/19/21 05:00 Baso # (Auto) 0.1 10^3/uL (0.0-0.1) 04/19/21 05:00 Absolute Nucleated RBC 0.00 x10^3/uL 04/19/21 05:00 Nucleated RBC % 0.0 /100WBC 04/19/21 05:00 Sodium 143 mmol/L (135-145) 04/19/21 05:00 Potassium 4.8 mmol/L (3.5-5.0) 04/19/21 05:00 Chloride 119 mmol/L (101-111) H 04/19/21 05:00 Carbon Dioxide 19 mmol/L (21-32) L 04/19/21 05:00 Anion Gap 5.0 (6-13) L 04/19/21 05:00 BUN 58 mg/dL (6-20) H 04/19/21 05:00 Creatinine 1.1 mg/dL (0.4-1.0) H 04/19/21 05:00 Estimated GFR (MDRD) 47 (>89) L 04/19/21 05:00 Glucose 101 mg/dL (70-100) H 04/19/21 05:00 Calcium 8.4 mg/dL (8.5-10.3) L 04/19/21 05:00 Ionized Calcium 4.8 mg/dL (4.8-5.6) 04/17/21 12:46 Magnesium 2.1 mg/dL (1.7-2.8) 04/18/21 05:25 Iron 44 ug/dL (28-170) 04/19/21 05:00 TIBC 193 ug/dL (250-450) L 04/19/21 05:00 % Saturation 23 % (20-50) 04/19/21 05:00 Transferrin 138 mg/dL (192-382) L 04/19/21 05:00 Total Bilirubin 0.7 mg/dL (0.2-1.0) 04/17/21 12:46 AST < 10 IU/L (10-42) L 04/17/21 12:46 ALT < 10 IU/L (10-60) L 04/17/21 12:46 Alkaline Phosphatase 76 IU/L (42-121) 04/17/21 12:46 Total Protein 7.4 g/dL (6.7-8.2) 04/17/21 12:46 Albumin 3.3 g/dL (3.2-5.5) 04/17/21 12:46 Albumin 3.3 g/dL (3.2-5.5) 04/17/21 12:46 Globulin 4.1 g/dL (2.1-4.2) 04/17/21 12:46 Albumin/Globulin Ratio 0.8 (1.0-2.2) L 04/17/21 12:46 Lipase 63 U/L (22-51) H 04/17/21 12:46 Vitamin B12 788 pg/mL (180-914) 04/19/21 05:00 Folate 5.09 ng/mL (5.90 - >24.8) L 04/19/21 05:00 Urine Color YELLOW 04/17/21 13:53 Urine Clarity HAZY (CLEAR) 04/17/21 13:53 Urine pH 5.0 PH (5.0-7.5) 04/17/21 13:53 Ur Specific [place] 1.015 (1.002-1.030) 04/17/21 13:53 Urine Protein NEGATIVE mg/dL (NEGATIVE) 04/17/21 13:53 Urine Glucose (UA) NEGATIVE mg/dL (NEGATIVE) 04/17/21 13:53 Urine Ketones NEGATIVE mg/dL (NEGATIVE) 04/17/21 13:53 Urine Occult Blood NEGATIVE (NEGATIVE) 04/17/21 13:53 Urine Nitrite NEGATIVE (NEGATIVE) 04/17/21 13:53 Urine Bilirubin NEGATIVE (NEGATIVE) 04/17/21 13:53 Urine Urobilinogen 0.2 (NORMAL) E.U./dL (NORMAL) 04/17/21 13:53 Ur Leukocyte Esterase MODERATE (NEGATIVE) H 04/17/21 13:53 Urine RBC 0-5 /HPF (0-5) 04/17/21 13:53 Urine WBC >25 /HPF (0-5) H 04/17/21 13:53 Ur Squamous Epith Cells FEW Squamous (<= Few) 04/17/21 13:53 Urine Bacteria Many /HPF (None Seen) H 04/17/21 13:53 Ur Microscopic Review INDICATED 04/17/21 13:53 Urine Culture Comments INDICATED 04/17/21 13:53 Nasal Adenovirus (PCR) NOT DETECTED 04/17/21 15:50 Nasal B. parapertussis DNA (PCR) NOT DETECTED 04/17/21 15:50 Nasal Coronavir 229E PCR NOT DETECTED 04/17/21 15:50 Nasal Coronavir HKU1 PCR NOT DETECTED 04/17/21 15:50 Nasal Coronavir NL63 PCR NOT DETECTED 04/17/21 15:50 Nasal Coronavir OC43 PCR NOT DETECTED 04/17/21 15:50 Nasal Enterovir/Rhinovir PCR NOT DETECTED 04/17/21 15:50 Nasal Influenza B PCR NOT DETECTED 04/17/21 15:50 Nasal Influenza A PCR NOT DETECTED 04/17/21 15:50 Nasal Parainfluen 1 PCR NOT DETECTED 04/17/21 15:50 Nasal Parainfluen 2 PCR NOT DETECTED 04/17/21 15:50 Nasal Parainfluen 3 PCR NOT DETECTED 04/17/21 15:50 Nasal Parainfluen 4 PCR NOT DETECTED 04/17/21 15:50 Nasal RSV (PCR) NOT DETECTED 04/17/21 15:50 Nasal B.pertussis DNA PCR NOT DETECTED 04/17/21 15:50 Nasal C.pneumoniae (PCR) NOT DETECTED 04/17/21 15:50 Karlos Human Metapneumo PCR NOT DETECTED 04/17/21 15:50 Nasal M.pneumoniae (PCR) NOT DETECTED 04/17/21 15:50 Nasal SARS-CoV-2 (PCR) NOT DETECTED 04/17/21 15:50 - Procedures Procedures: Procedures EXCISION OF LOWER ESOPHAGUS, ENDO, DIAGN (10/07/19) ABX Reporting Has patient been on IV antibiotics over the past 48 hours?: Yes Current Medications - Current Medications Current Medications: Active Medications Acetaminophen (Acetaminophen 325 Mg Tablet) 650 mg PO Q4HR PRN PRN Reason: Pain or Fever > 38C (100.4F) Last Admin: 04/18/21 16:30 Dose: 650 mg Documented by: Bacitracin (Bacitracin Zinc Oint 14 Gm) 1 applic TOP BID [facility] Docusate Sodium (Docusate Sodium 250 Mg Capsule) 250 - 500 mg PO DAILY [facility] Last Admin: 04/20/21 08:40 Dose: 250 mg Documented by: Doxycycline Hyclate (Doxycycline 100 Mg Tablet) 100 mg PO BID [facility] Last Admin: 04/20/21 11:58 Dose: 100 mg Documented by: Folic Acid (Folic Acid 1 Mg Tablet) 1 mg PO DAILY [facility] Last Admin: 04/20/21 08:37 Dose: 1 mg Documented by: Lactobacillus Rhamnosus (Lactobacillus Rhamnosus Gg Capsule) 1 cap PO DAILY [facility] Last Admin: 04/20/21 08:36 Dose: 1 cap Documented by: Multi-Ingredient Ointment (Emollient Cream 57 Gm Tube) 1 applic TOP BID [facility] Last Admin: 04/20/21 11:58 Dose: 1 applic Documented by: Multi-Ingredient Ointment (Zinc Oxide 20% Oint 30 Gm Tube) 1 applic TOP QID PRN PRN Reason: skin care Ondansetron HCl (Ondansetron 4 Mg/2 Ml Vial) 4 mg IVP Q6HR PRN PRN Reason: Nausea / Vomiting Polyethylene Glycol (Polyethylene Glycol 3350 17 Gm Packet) 17 gm PO DAILY [facility] Last Admin: 04/20/21 08:37 Dose: 17 gm Documented by: Multivit/Folic Acid/Iron ( Vitamin Tablet) 1 tab PO DAILYWM [facility] Last Admin: 04/20/21 08:37 Dose: 1 tab Documented by: Saccharomyces Boulardii (Saccharomyces Boulardii 250 Mg Capsule) 250 mg PO BIDWM [facility] Last Admin: 04/20/21 08:35 Dose: 250 mg Documented by: Senna (Senna 8.6 Mg Tablet) 8.6 - 17.2 mg PO DAILY [facility] Last Admin: 04/20/21 08:40 Dose: 8.6 mg Documented by: Sodium Chloride (Sodium Chloride Flush 0.9% 10 Ml Syringe) 10 ml IVP PRN PRN PRN Reason: NEEDED PER PROVIDER ORDERS Last Admin: 04/20/21 09:04 Dose: 10 ml Documented by: Sodium Chloride (Sodium Chloride Flush 0.9% 10 Ml Syringe) 10 ml IVP 0100,0900,1700 [facility] Last Admin: 04/20/21 08:35 Dose: Not Given Documented by: lisinopriL [Zestril] 5 mg PO DAILY 04/18/21
[2021-04-20 12:59] LABS: BASOPHILS # (AUTO) 0.1 10^3/uL (0.0-0.1); BASOPHILS % (AUTO) 0.7 %; EOSINOPHILS # (AUTO) 0.5 10^3/uL (0.0-0.7); EOSINOPHILS % (AUTO) 4.4 %; HCT - HEMATOCRIT 34.8 % (37.0-47.0); HGB - HEMOGLOBIN 11.1 g/dL (12.0-16.0); LYMPHOCYTES # (AUTO) 1.4 10^3/uL (1.5-3.5); LYMPHOCYTES % (AUTO) 13.5 %; MEAN CORPUSCULAR HEMOGLOBIN 28.3 pg (27.0-31.0); MEAN CORPUSCULAR HGB CONC 31.9 g/dL (32.0-36.0); MEAN CORPUSCULAR VOLUME 88.8 fL (81.0-99.0); MEAN PLATELET VOLUME 8.5 fL (7.9-10.8); MONOCYTES # (AUTO) 0.8 10^3/uL (0.0-1.0); NEUTROPHILS # (AUTO) 7.6 10^3/uL (1.5-6.6); NEUTROPHILS % (AUTO) 73.1 %; PLT - PLATELET COUNT 282 10^3/uL (130-450); RED BLOOD COUNT 3.92 10^6/uL (4.20-5.40); RED CELL DISTRIBUTION WIDTH 15.4 % (12.0-15.0); WHITE BLOOD COUNT 10.3 x10^3/uL (4.8-10.8)
[2021-04-20 13:09] LABS: CALCIUM 8.4 mg/dL (8.5-10.3); POTASSIUM 4.9 mmol/L (3.5-5.0)
[2021-04-20] MEDS: BACITRACIN ZINC OINT 14 GM TOP SCH ×3 (14:22→21:25)
[2021-04-20] MEDS ORDERED: VANCOMYCIN INJ 1 GM in SODIUM CHLORIDE 0.9% 250 ML IV SCH (20:00)
[2021-04-21] MEDS: SODIUM CHLORIDE FLUSH 0.9% 10 ML SYRINGE IVP SCH ×3 (05:05→17:50)
[2021-04-21 05:35] LABS: BASOPHILS # (AUTO) 0.1 10^3/uL (0.0-0.1); BASOPHILS % (AUTO) 0.8 %; EOSINOPHILS # (AUTO) 0.5 10^3/uL (0.0-0.7); EOSINOPHILS % (AUTO) 5.5 %; HCT - HEMATOCRIT 33.8 % (37.0-47.0); HGB - HEMOGLOBIN 10.7 g/dL (12.0-16.0); LYMPHOCYTES # (AUTO) 1.8 10^3/uL (1.5-3.5); MEAN CORPUSCULAR HEMOGLOBIN 27.9 pg (27.0-31.0); MEAN CORPUSCULAR HGB CONC 31.7 g/dL (32.0-36.0); MEAN PLATELET VOLUME 9.1 fL (7.9-10.8); MONOCYTES # (AUTO) 0.8 10^3/uL (0.0-1.0); MONOCYTES % (AUTO) 8.3 %; NEUTROPHILS # (AUTO) 5.9 10^3/uL (1.5-6.6); NEUTROPHILS % (AUTO) 65.2 %; PLT - PLATELET COUNT 293 10^3/uL (130-450); RED BLOOD COUNT 3.84 10^6/uL (4.20-5.40)
[2021-04-21 05:40] LABS: CALCIUM 8.3 mg/dL (8.5-10.3); CREATININE 1.1 mg/dL (0.4-1.0); POTASSIUM 5.1 mmol/L (3.5-5.0)
[2021-04-21] MEDS ORDERED: BISACODYL 10 MG SUPP PR ONE (07:10)
[2021-04-21] MEDS: SODIUM CHLORIDE 0.9% 1,000 ML IV SCH ×2 (08:01→17:50)
[2021-04-21] MEDS: polyethylene glycoL 3350 17 GM PACKET PO SCH (08:01)
[2021-04-21] MEDS: BACITRACIN ZINC OINT 14 GM TOP SCH ×2 (08:01→21:27)
[2021-04-21] MEDS: DOXYCYCLINE 100 MG TABLET PO SCH ×2 (08:02→22:37)
[2021-04-21] MEDS: DOCUSATE SODIUM 250 MG CAPSULE PO SCH (08:02)
[2021-04-21] MEDS: LACTOBACILLUS RHAMNOSUS GG CAPSULE PO SCH (08:02)
[2021-04-21] MEDS: PRENATAL VITAMIN TABLET PO SCH (08:02)
[2021-04-21] MEDS: SACCHAROMYCES BOULARDII 250 MG CAPSULE PO SCH ×2 (08:03→17:50)
[2021-04-21] MEDS: SENNA 8.6 MG TABLET PO SCH (08:03)
[2021-04-21] MEDS: FOLIC ACID 1 MG TABLET PO SCH (08:03)
[2021-04-21] MEDS: EMOLLIENT CREAM 57 GM TUBE TOP SCH ×2 (08:03→21:27)
--- NOTE | 2021-04-21 12:10 | PROVIDER PROGRESS NOTE ---
Assessment/Plan - Problem List (1) Cellulitis Qualifiers: Site of cellulitis: buttock Qualified Code(s): L03.317 - Cellulitis of buttock Assessment/Plan: 04/21 improved. pt has normal WBC, patient has no fever, blood culture is negative for bacteremia. Intravenous vancomycin changed to oral doxycycline according to culture sensitivity study. Drainage wound culture show positive MRSA. SNF accepted patient on tomorrow, we will plan to discharge patient tomorrow 04/20 improved. pt has no more drainage. wound is healing and became scar tissue now. Unfortunately pt is very hard to new IV insert, and IV antibiotics was delayed. wound drainage culture in the admission show pt is MRSA. since pt's blood culture is negative for bacteremia, pt has no fever, and WBC is at normal arrange. we will witch to oral antibiotics according to sensitivity study. Continue closely monitor patient overnight, plan discharge patient to SNF according to physical therapist and occupational therapist's evaluation on tomorrow Improved, mild erythema in bilateral lower extremities. cultures show gram- positive bacteria, switch to vancomycin only Patient has scabs, flaking plaques and several areas of weeping skin as her baseline continue treat topically as well. (2)dehydration pt Patient had a slightly elevated creatinine and hyperkalemia 5.1, Clinically patient present dehydration and dry mouth. Patient has a history dementia and some confused at his baseline. It is For nurse to feed patient to have enough fluids. We will start with intravenous IV fluids, continue photofinishing laboratory worker (3) UTI (urinary tract infection) 04/21 Urine culture show gram-positive rods with resembling lactobacilli, it is likely Contaminated. continue POUrine culture show gram-positive bacteria, we will switch antibiotics to vancomycin only. Continue UA culture sensitivity study. Patient still has some confused, pt had acute infection including UTI and Bilaterally lower extremity cellulitis, and patient's baseline with dementia and some confused as her baseline as well per social work report. (4) LESLIE (acute kidney injury) 04/21 pt has slightly elevated creatinine and potassium, pt present dehydration, plan: IVF and lab monitor Resolved, creatinine is 1.1 on today, reduce patient intravenous IV fluids to 83.3 cc/h, Since patient also has poor oral input of fluid. Continue photofinishing laboratory worker (5) Dementia 04/20, Unfortunately patient declined to have laboratory test, Patient has some confused likely at his baseline from her dementia. Patient has history of dementia, Baseline with some confused. we Consult with PT and OT Depending on her level of improvement in mental function, and PT/OT evaluation and treatment, after the above, she might need placement for complete [facility] care when she is ready for discharge. SW consult requested. (6) FTT (failure to thrive) in adult Assessment/Plan: pt ate 25% of her breakfast, poor appetite hose seamer was consulted for assisting in better oral intake (7) Protein-calorie malnutrition, severe Assessment/Plan: This patient's oral intake for 1 week was less than 50% of recommended and she has had a 6% weight loss in the past 6 months. pt ate 25% of her breakfast, poor appetite, consult with hose seamer. (8) Anemia Assessment/Plan: I suspect this is from malnutrition and now hemodilution adding to low Hgb. anemia study show folate levels is low. replacement of Folate (9) Hyperkalemia Assessment/Plan: 04/21 potassium 5.1, likely caused by mild dehydration, plan: IVF and lab monitor Resolved. Continue to avoid high potassium products and continue telemetry for an additional day - Current Meds Current Meds: Current Medications Generic Name Dose Route Start Last Admin Trade Name Freq PRN Reason Stop Dose Admin Acetaminophen 650 mg 04/17/21 15:09 04/18/21 16:30 Acetaminophen 325 Mg Tablet PO 650 mg Q4HR PRN Administration Pain or Fever > 38C (100.4F) Bacitracin 1 applic 04/20/21 11:00 04/21/21 08:01 Bacitracin Zinc Oint 14 Gm TOP Not Given BID MICHAEL Docusate Sodium 250 - 500 mg 04/20/21 09:00 04/21/21 08:02 Docusate Sodium 250 Mg Capsule PO 250 mg DAILY MICHAEL Administration Doxycycline Hyclate 100 mg 04/20/21 10:30 04/21/21 08:02 Doxycycline 100 Mg Tablet PO 100 mg BID MICHAEL Administration Folic Acid 1 mg 04/19/21 09:00 04/21/21 08:03 Folic Acid 1 Mg Tablet PO 1 mg DAILY MICHAEL Administration Sodium Chloride 1,000 mls @ 100 mls/hr 04/21/21 08:00 04/21/21 08:01 Normal Saline 0.9% IV 04/22/21 03:59 100 mls/hr .Q10H MICHAEL Administration Lactobacillus Rhamnosus 1 cap 04/18/21 16:00 04/21/21 08:02 Lactobacillus Rhamnosus Gg Capsule PO 1 cap DAILY MICHAEL Administration Multi-Ingredient Ointment 1 applic 04/18/21 21:00 04/21/21 08:03 Emollient Cream 57 Gm Tube TOP 1 applic BID MICHAEL Administration Multi-Ingredient Ointment 1 applic 04/20/21 10:33 04/20/21 17:07 Zinc Oxide 20% Oint 30 Gm Tube TOP 1 applic QID PRN Administration skin care Polyethylene Glycol 17 gm 04/19/21 09:00 04/21/21 08:01 Polyethylene Glycol 3350 17 Gm Packet PO 17 gm DAILY MICHAEL Administration Multivit/Folic Acid/Iron 1 tab 04/19/21 08:00 04/21/21 08:02 Vitamin Tablet PO 1 tab DAILYWM MICHAEL Administration Saccharomyces Boulardii 250 mg 04/19/21 11:56 04/21/21 08:03 Saccharomyces Boulardii 250 Mg Capsule PO 250 mg BIDWM MICHAEL Administration Senna 8.6 - 17.2 mg 04/20/21 09:00 04/21/21 08:03 Senna 8.6 Mg Tablet PO 8.6 mg DAILY MICHAEL Administration Sodium Chloride 10 ml 04/17/21 15:09 04/20/21 09:04 Sodium Chloride Flush 0.9% 10 Ml Syringe IVP 10 ml PRN PRN Administration NEEDED PER PROVIDER ORDERS Sodium Chloride 10 ml 04/17/21 17:00 04/21/21 08:01 Sodium Chloride Flush 0.9% 10 Ml Syringe IVP 10 ml 0100,0900,1700 MICHAEL Administration - Lab Result Fish Bone Diagrams: 04/21/21 04:14 04/21/21 04:14 - Additional Planning My Orders: My Active Orders 04/21/21 08:00 Sodium Chloride 0.9% [Normal Saline 0.9%] 1,000 ml IV 100 mls/hr 04/22/21 05:00 BMP - BASIC METABOLIC PANEL [CHEM] DAILYLAB CBC - COMP BLD CT W/AUTO DIFF [HEME] DAILYLAB 04/23/21 05:00 BMP - BASIC METABOLIC PANEL [CHEM] DAILYLAB CBC - COMP BLD CT W/AUTO DIFF [HEME] DAILYLAB 04/24/21 05:00 BMP - BASIC METABOLIC PANEL [CHEM] DAILYLAB CBC - COMP BLD CT W/AUTO DIFF [HEME] DAILYLAB 04/25/21 05:00 BMP - BASIC METABOLIC PANEL [CHEM] DAILYLAB CBC - COMP BLD CT W/AUTO DIFF [HEME] DAILYLAB Subjective - Subjective Nursing Reports: No Complaints, Confused Objective Vital Signs: Vital Signs - 24 hr 04/20/21 04/20/21 04/20/21 12:16 16:39 21:00 Temperature 36.8 C 36.7 C 37.0 C Heart Rate [ 96 81 89 Brachial] Respiratory 18 20 16 Rate Blood Pressure 130/62 [Left Brachial artery] Blood Pressure 134/48 H 137/59 H [Right Brachial artery] O2 Saturation 100 98 100 04/21/21 04/21/21 04/21/21 00:19 05:00 08:01 Temperature 37 C 36.4 C L 37.1 C Heart Rate [ 89 80 90 Brachial] Respiratory 18 16 19 Rate Blood Pressure [Left Brachial artery] Blood Pressure 114/53 L 118/57 L 122/73 [Right Brachial artery] O2 Saturation 95 98 96 Oxygen O2 Source Room air I&O (Last 24 Hrs): Intake and Output Totals x24h 04/19/21 04/20/21 04/21/21 23:59 23:59 23:59 Intake Total 3374.793 1423.207 100 Output Total 975 1250 700 Balance 2399.793 173.207 -600 General: Alert, Cooperative, No acute distress HEENT: Atraumatic Neck: Supple Lymphatic: no adenopathy Neuro: Alert, Non Focal Cardiovascular: Regular rate, Normal S1, Normal S2 Respiratory: Chest non-tender, No respiratory distress Abdomen: Normal bowel sounds, Soft, No tenderness Extremities: Normal pulses, Other (slight erythema on bilateral lower extremities but swelling was resolved. skin is intact now.) - Results Results: Laboratory Results WBC 9.0 x10^3/uL (4.8-10.8) 04/21/21 04:14 RBC 3.84 10^6/uL (4.20-5.40) L 04/21/21 04:14 Hgb 10.7 g/dL (12.0-16.0) L 04/21/21 04:14 Hct 33.8 % (37.0-47.0) L 04/21/21 04:14 MCV 88.0 fL (81.0-99.0) 04/21/21 04:14 MCH 27.9 pg (27.0-31.0) 04/21/21 04:14 MCHC 31.7 g/dL (32.0-36.0) L 04/21/21 04:14 RDW 15.0 % (12.0-15.0) 04/21/21 04:14 Plt Count 293 10^3/uL (130-450) 04/21/21 04:14 MPV 9.1 fL (7.9-10.8) 04/21/21 04:14 Neut # (Auto) 5.9 10^3/uL (1.5-6.6) 04/21/21 04:14 Lymph # (Auto) 1.8 10^3/uL (1.5-3.5) 04/21/21 04:14 Wake # (Auto) 0.8 10^3/uL (0.0-1.0) 04/21/21 04:14 Eos # (Auto) 0.5 10^3/uL (0.0-0.7) 04/21/21 04:14 Baso # (Auto) 0.1 10^3/uL (0.0-0.1) 04/21/21 04:14 Absolute Nucleated RBC 0.00 x10^3/uL 04/21/21 04:14 Nucleated RBC % 0.0 /100WBC 04/21/21 04:14 Sodium 138 mmol/L (135-145) 04/21/21 04:14 Potassium 5.1 mmol/L (3.5-5.0) H 04/21/21 04:14 Chloride 109 mmol/L (101-111) 04/21/21 04:14 Carbon Dioxide 23 mmol/L (21-32) 04/21/21 04:14 Anion Gap 6.0 (6-13) 04/21/21 04:14 BUN 29 mg/dL (6-20) H 04/21/21 04:14 Creatinine 1.1 mg/dL (0.4-1.0) H 04/21/21 04:14 Estimated GFR (MDRD) 47 (>89) L 04/21/21 04:14 Glucose 92 mg/dL (70-100) 04/21/21 04:14 Calcium 8.3 mg/dL (8.5-10.3) L 04/21/21 04:14 Ionized Calcium 4.8 mg/dL (4.8-5.6) 04/17/21 12:46 Magnesium 2.1 mg/dL (1.7-2.8) 04/18/21 05:25 Iron 44 ug/dL (28-170) 04/19/21 05:00 TIBC 193 ug/dL (250-450) L 04/19/21 05:00 % Saturation 23 % (20-50) 04/19/21 05:00 Transferrin 138 mg/dL (192-382) L 04/19/21 05:00 Total Bilirubin 0.7 mg/dL (0.2-1.0) 04/17/21 12:46 AST < 10 IU/L (10-42) L 04/17/21 12:46 ALT < 10 IU/L (10-60) L 04/17/21 12:46 Alkaline Phosphatase 76 IU/L (42-121) 04/17/21 12:46 Total Protein 7.4 g/dL (6.7-8.2) 04/17/21 12:46 Albumin 3.3 g/dL (3.2-5.5) 04/17/21 12:46 Albumin 3.3 g/dL (3.2-5.5) 04/17/21 12:46 Globulin 4.1 g/dL (2.1-4.2) 04/17/21 12:46 Albumin/Globulin Ratio 0.8 (1.0-2.2) L 04/17/21 12:46 Lipase 63 U/L (22-51) H 04/17/21 12:46 Vitamin B12 788 pg/mL (180-914) 04/19/21 05:00 Folate 5.09 ng/mL (5.90 - >24.8) L 04/19/21 05:00 Urine Color YELLOW 04/17/21 13:53 Urine Clarity HAZY (CLEAR) 04/17/21 13:53 Urine pH 5.0 PH (5.0-7.5) 04/17/21 13:53 Ur Specific Noble 1.015 (1.002-1.030) 04/17/21 13:53 Urine Protein NEGATIVE mg/dL (NEGATIVE) 04/17/21 13:53 Urine Glucose (UA) NEGATIVE mg/dL (NEGATIVE) 04/17/21 13:53 Urine Ketones NEGATIVE mg/dL (NEGATIVE) 04/17/21 13:53 Urine Occult Blood NEGATIVE (NEGATIVE) 04/17/21 13:53 Urine Nitrite NEGATIVE (NEGATIVE) 04/17/21 13:53 Urine Bilirubin NEGATIVE (NEGATIVE) 04/17/21 13:53 Urine Urobilinogen 0.2 (NORMAL) E.U./dL (NORMAL) 04/17/21 13:53 Ur Leukocyte Esterase MODERATE (NEGATIVE) H 04/17/21 13:53 Urine RBC 0-5 /HPF (0-5) 04/17/21 13:53 Urine WBC >25 /HPF (0-5) H 04/17/21 13:53 Ur Squamous Epith Cells FEW Squamous (<= Few) 04/17/21 13:53 Urine Bacteria Many /HPF (None Seen) H 04/17/21 13:53 Ur Microscopic Review INDICATED 04/17/21 13:53 Urine Culture Comments INDICATED 04/17/21 13:53 Nasal Adenovirus (PCR) NOT DETECTED 04/17/21 15:50 Nasal B. parapertussis DNA (PCR) NOT DETECTED 04/17/21 15:50 Nasal Coronavir 229E PCR NOT DETECTED 04/17/21 15:50 Nasal Coronavir HKU1 PCR NOT DETECTED 04/17/21 15:50 Nasal Coronavir NL63 PCR NOT DETECTED 04/17/21 15:50 Nasal Coronavir OC43 PCR NOT DETECTED 04/17/21 15:50 Nasal Enterovir/Rhinovir PCR NOT DETECTED 04/17/21 15:50 Nasal Influenza B PCR NOT DETECTED 04/17/21 15:50 Nasal Influenza A PCR NOT DETECTED 04/17/21 15:50 Nasal Parainfluen 1 PCR NOT DETECTED 04/17/21 15:50 Nasal Parainfluen 2 PCR NOT DETECTED 04/17/21 15:50 Nasal Parainfluen 3 PCR NOT DETECTED 04/17/21 15:50 Nasal Parainfluen 4 PCR NOT DETECTED 04/17/21 15:50 Nasal RSV (PCR) NOT DETECTED 04/17/21 15:50 Nasal B.pertussis DNA PCR NOT DETECTED 04/17/21 15:50 Nasal C.pneumoniae (PCR) NOT DETECTED 04/17/21 15:50 Karlos Human Metapneumo PCR NOT DETECTED 04/17/21 15:50 Nasal M.pneumoniae (PCR) NOT DETECTED 04/17/21 15:50 Nasal SARS-CoV-2 (PCR) NOT DETECTED 04/17/21 15:50 - Procedures Procedures: Procedures EXCISION OF LOWER ESOPHAGUS, ENDO, DIAGN (10/07/19) ABX Reporting Has patient been on IV antibiotics over the past 48 hours?: Yes Current Medications - Current Medications Current Medications: Active Medications Acetaminophen (Acetaminophen 325 Mg Tablet) 650 mg PO Q4HR PRN PRN Reason: Pain or Fever > 38C (100.4F) Last Admin: 04/18/21 16:30 Dose: 650 mg Documented by: Bacitracin (Bacitracin Zinc Oint 14 Gm) 1 applic TOP BID [facility] Last Admin: 04/21/21 08:01 Dose: Not Given Documented by: Docusate Sodium (Docusate Sodium 250 Mg Capsule) 250 - 500 mg PO DAILY [facility] Last Admin: 04/21/21 08:02 Dose: 250 mg Documented by: Doxycycline Hyclate (Doxycycline 100 Mg Tablet) 100 mg PO BID [facility] Last Admin: 04/21/21 08:02 Dose: 100 mg Documented by: Folic Acid (Folic Acid 1 Mg Tablet) 1 mg PO DAILY [facility] Last Admin: 04/21/21 08:03 Dose: 1 mg Documented by: Sodium Chloride (Normal Saline 0.9%) 1,000 mls @ 100 mls/hr IV .Q10H [facility] Stop: 04/22/21 03:59 Last Admin: 04/21/21 08:01 Dose: 100 mls/hr Documented by: Lactobacillus Rhamnosus (Lactobacillus Rhamnosus Gg Capsule) 1 cap PO DAILY [facility] Last Admin: 04/21/21 08:02 Dose: 1 cap Documented by: Multi-Ingredient Ointment (Emollient Cream 57 Gm Tube) 1 applic TOP BID [facility] Last Admin: 04/21/21 08:03 Dose: 1 applic Documented by: Multi-Ingredient Ointment (Zinc Oxide 20% Oint 30 Gm Tube) 1 applic TOP QID PRN PRN Reason: skin care Last Admin: 04/20/21 17:07 Dose: 1 applic Documented by: Ondansetron HCl (Ondansetron 4 Mg/2 Ml Vial) 4 mg IVP Q6HR PRN PRN Reason: Nausea / Vomiting Polyethylene Glycol (Polyethylene Glycol 3350 17 Gm Packet) 17 gm PO DAILY [facility] Last Admin: 04/21/21 08:01 Dose: 17 gm Documented by: Multivit/Folic Acid/Iron ( Vitamin Tablet) 1 tab PO DAILYWM [facility] Last Admin: 04/21/21 08:02 Dose: 1 tab Documented by: Saccharomyces Boulardii (Saccharomyces Boulardii 250 Mg Capsule) 250 mg PO BIDWM [facility] Last Admin: 04/21/21 08:03 Dose: 250 mg Documented by: Senna (Senna 8.6 Mg Tablet) 8.6 - 17.2 mg PO DAILY [facility] Last Admin: 04/21/21 08:03 Dose: 8.6 mg Documented by: Sodium Chloride (Sodium Chloride Flush 0.9% 10 Ml Syringe) 10 ml IVP PRN PRN PRN Reason: NEEDED PER PROVIDER ORDERS Last Admin: 04/20/21 09:04 Dose: 10 ml Documented by: Sodium Chloride (Sodium Chloride Flush 0.9% 10 Ml Syringe) 10 ml IVP 0100,0900,1700 [facility] Last Admin: 04/21/21 08:01 Dose: 10 ml Documented by: lisinopriL [Zestril] 5 mg PO DAILY 04/18/21
[2021-04-21] MEDS ORDERED: SODIUM CHLORIDE 0.9% 1,000 ML IV SCH (18:01)
[2021-04-22] MEDS: SODIUM CHLORIDE FLUSH 0.9% 10 ML SYRINGE IVP SCH ×2 (00:21→09:15)
[2021-04-22 05:23] LABS: BASOPHILS # (AUTO) 0.1 10^3/uL (0.0-0.1); BASOPHILS % (AUTO) 0.8 %; EOSINOPHILS # (AUTO) 0.5 10^3/uL (0.0-0.7); EOSINOPHILS % (AUTO) 6.1 %; HCT - HEMATOCRIT 31.2 % (37.0-47.0); HGB - HEMOGLOBIN 9.9 g/dL (12.0-16.0); LYMPHOCYTES % (AUTO) 23.8 %; MEAN CORPUSCULAR HEMOGLOBIN 27.7 pg (27.0-31.0); MEAN CORPUSCULAR HGB CONC 31.7 g/dL (32.0-36.0); MEAN CORPUSCULAR VOLUME 87.4 fL (81.0-99.0); MONOCYTES # (AUTO) 0.7 10^3/uL (0.0-1.0); MONOCYTES % (AUTO) 7.7 %; NEUTROPHILS # (AUTO) 5.2 10^3/uL (1.5-6.6); NEUTROPHILS % (AUTO) 61.2 %; PLT - PLATELET COUNT 254 10^3/uL (130-450); RED BLOOD COUNT 3.57 10^6/uL (4.20-5.40); RED CELL DISTRIBUTION WIDTH 14.8 % (12.0-15.0); WHITE BLOOD COUNT 8.5 x10^3/uL (4.8-10.8)
[2021-04-22 05:32] LABS: CALCIUM 8.2 mg/dL (8.5-10.3); CREATININE 0.9 mg/dL (0.4-1.0); POTASSIUM 4.6 mmol/L (3.5-5.0)
--- NOTE | 2021-04-22 09:08 | Discharge Plan ---
"Discharge Plan for SNF / [facility] - Discharge Plan And Transition Orders Problem Reviewed?: Yes Disposition: 03 SNF DC/Xfer Condition: Stable Allergies and Adverse Reactions: Allergies Allergy/AdvReac Type Severity Reaction Status Date / Time blue dye Allergy Unknown Verified 04/18/21 09:03 Health Concerns: dehydration and LESLIE, lower extremities cellulitis/skin care, dementia/confused Plan of Treatment: Pt has hx of dementia and baseline with mild confused, Keep pt hydration and nutrition Pt was found cellulitis on bilateral lower extremities. pt is prescribed antibiotics to finish the treatment course, and continue skin care on her bilateral lower extremities. Care Goals: stabilization, comfort and improvement of her medical conditions - SNF / [facility] Transition Orders Admit to (Facility): [facility] Under the care of (Name): Dr. Marquis Tyson Discharge Diagnosis: cellulitis, LESLIE and dehydration, dementia and confused, failure to thrive on adult, malnutrition, anemia, hyperkalemia. Medicare Certification Statement: I certify that Post Hospital shelter care is medically necessary on a continuing basis for any of the conditions for which she/he is receiving care during hospitalization. Notify PCP of admission and forward orders to primary provider for signature. Weight on admission and: Daily Call PCP immediately if weight increases by: 2 kg Other Notification Orders: Call PCP immediately if patient develops dyspnea, chest pain/tightness or edema. House Bowel Program: Yes Additional Bowel Program Orders: If no BM after 2 days, nurse may give M.O.M. 30ml PO PRN and/or ducolax Supp 1 [place] and/or RUBEN 250mg P.O., and/or senna 1-2 tabs PO. On day 3 nurse may give repeat above order until residents constipation is resolved. Annual Influenza Vaccine (between Jun 29 and January 26): Yes Two-step PPD per [facility] [id number] or approved exception documents: Yes Treatments & Other Orders: Pt has hx of dementia and baseline with mild confused, Keep pt hydration and nutrition. Pt was found cellulitis on bilateral lower extremities. pt is prescribed antibiotics to finish the treatment course, and continue skin care on her bilateral lower extremities. Medication Orders: PLEASE REFER TO THE DISCHARGE MEDICATION LIST. Insulin Orders?: No - Medications New Prescriptions: Lactobacillus Rhamnosus GG [Culturelle] 1 cap PO DAILY #10 cap Emollient Cream [Eucerin] 1 applic TOP BID #1 tub Folic Acid 1 mg PO DAILY #30 tablet Doxycycline [Vibramycin] 100 mg PO BID #10 tablet - Diet Type: Geriatric Texture: Regular Liquids: Thin May have monthly special meal: Yes - Therapies | Activity Therapy: Evaluation | Treat if indicated: PT, OT Rehabilitation Potential: Maximize functional status Activity: Activity as Tolerated"
[2021-04-22] MEDS: SACCHAROMYCES BOULARDII 250 MG CAPSULE PO SCH (09:12)
[2021-04-22] MEDS: polyethylene glycoL 3350 17 GM PACKET PO SCH (09:12)
[2021-04-22] MEDS: LACTOBACILLUS RHAMNOSUS GG CAPSULE PO SCH (09:13)
[2021-04-22] MEDS: DOXYCYCLINE 100 MG TABLET PO SCH (09:13)
[2021-04-22] MEDS: SENNA 8.6 MG TABLET PO SCH (09:13)
[2021-04-22] MEDS: DOCUSATE SODIUM 250 MG CAPSULE PO SCH (09:13)
[2021-04-22] MEDS: FOLIC ACID 1 MG TABLET PO SCH (09:14)
[2021-04-22] MEDS: PRENATAL VITAMIN TABLET PO SCH (09:14)
--- NOTE | 2021-04-22 10:11 | DISCHARGE SUMMARY ---
Discharge Summary Admit Date: 04/17/21 Discharge Date: 04/22/21 Discharging Provider: Helio Coppola Primary Care Provider: Jv Sorto Condition at Discharge: Stable Discharge Disposition: 03 SNF DC/Xfer Discharge Facility Name: [facility] - DIAGNOSES Discharge Diagnoses with Status of Each Condition: (1) Cellulitis significantly improved. Patient has normal WBC, patient has no fever, blood cultures negative for bacteremia. skin is intact without drainage now. Continue skin care in SNF, patient is prescribed antibiotics and emollient cream for skin care. (2)dehydration resolved. advise SNF Keep the patient hydration and nutrition With analytical manager consult. Patient has a history of dementia and confused. (3) UTI (urinary tract infection) it is likely contaminated. (4) LESLIE (acute kidney injury) resolved (5) Dementia stable, as her baseline (6) FTT (failure to thrive) in adult continue analytical manager consult, Keep patient on nutrition and hydration (7) Protein-calorie malnutrition, severe Patient has a history of dementia and confused.advise SNF Keep the patient hydration and nutrition With analytical manager consult (8)anemia stable, anemia study show folate levels is low. replacement of Folate (9) Hyperkalemia resolved - HPI History of Present Illness: refer from Dr. Kalee Naranjo's HPI on 04/17/21 This is an 89-year-old white female with dementia, lives with her son, has depression. There is been poor oral intake for the past several months but worse over the past 1 week. The patient has become weaker and is now bedbound. She was brought in because of marked weakness. In the ER her work-up shows acute kidney injury with BUN 128, creatinine 2.0, hyperkalemia with potassium 5.3 and EKG showing new peaked T waves. Patient received insulin, D5, calcium in the ED and the repeat potassium has improved. She can give no history whatsoever. She cannot even answer where she is. Her sentences are jumbled and on no topic. The patient is being admitted to the Hospitalist team on telemetry because of hyperkalemia with peaked T waves on EKG and for volume replacement treatment for her LESLIE. - HOSPITAL COURSE Hospital Course: Patient was admitted for profound weakness. Patient was found to have bilateral lower extremity cellulitis, possible UTI. Patient was also found to have severe malnutrition, Dehydration and LESLIE. Patient has a history advanced dementia and confused. Patient was treated with intravenous antibiotics, intravenous IV fluids, patient had analytical manager consult, patient had PT and OT evaluation and treatment. After the treatment, patient has normal WBC, patient has no fever, Blood culture show negative for bacteremia. PT and OT recommended patient discharge to SNF for strength and fall prevention training. Patient is discharged at hemodynamically stable condition - ALLERGIES Allergies/Adverse Reactions: Allergies Allergy/AdvReac Type Severity Reaction Status Date / Time blue dye Allergy Unknown Verified 04/18/21 09:03 - MEDICATIONS Home Medications: Ambulatory Orders Medication Instructions Recorded Confirmed lisinopriL [Zestril] 5 mg PO DAILY 04/18/21 04/18/21 Doxycycline [Vibramycin] 100 mg PO BID #10 tablet 04/22/21 Emollient Cream [Eucerin] 1 applic TOP BID #1 tub 04/22/21 Folic Acid 1 mg PO DAILY #30 tablet 04/22/21 Lactobacillus Rhamnosus GG 1 cap PO DAILY #10 cap 04/22/21 [Culturelle] - PHYSICAL EXAM AT DISCHARGE General Appearance: positive: No acute distress, Alert. negative: Lethargic Eyes Bilateral: positive: Normal inspection, PERRL, No lid inflammation ENT: positive: ENT inspection nml, No signs of dehydration. negative: Purulent nasal drainage Neck: positive: Nml inspection, Trachea midline. negative: Thyromegaly, Tr acheal deviation Respiratory: positive: Chest non-tender, No respiratory distress. negative: Wheezes, Rales Cardiovascular: positive: Regular rate & rhythm, No murmur. negative: Tachycardia, Bradycardia, Systolic murmur, Diastolic murmur Peripheral Pulses: positive: 2+ Abdomen: positive: Non-tender, Nml bowel sounds, No distention. negative: Tenderness Back: positive: Nml inspection Skin: positive: Warm, Dry, Other (pt has scabs, flaking plaques and several areas of weeping skin in her Bilaterally lower extremity, right more than left, With very slightly Erythema, swelling is resolved. pt denies pain. ). negative: Cyanosis, Diaphoresis Extremities: positive: Non-tender, Full ROM. negative: Calf tenderness Neurologic/Psychiatric: positive: Sensation nml. negative: Weakness, Sensory lo ss, Facial droop, Slurred/abnml speech - LABS Result Diagrams: 04/22/21 04:15 04/22/21 04:15 - FOLLOW UP Follow Up: Pt has hx of dementia and baseline with mild confused, Keep pt hydration and nutrition Pt was found cellulitis on bilateral lower extremities. pt is prescribed antibiotics to finish the treatment course, and please continue skin care on her bilateral lower extremities. - TIME SPENT Time Spent in Discharge (Minutes): 30
[2021-04-22] MEDS: EMOLLIENT CREAM 57 GM TUBE TOP SCH (10:51)
[2021-04-22] MEDS: BACITRACIN ZINC OINT 14 GM TOP SCH (10:52)
[2021-04-22 14:37] LABS: B. PARAPERTUSSIS- RESP PCR PAN NOT DETECTED; B. PERTUSSIS- RESP PCR PANEL NOT DETECTED; C. PNEUMONIAE- RESP PCR PANEL NOT DETECTED; CORONAVIRUS 229E-RESP PCR NOT DETECTED; CORONAVIRUS HKU1-RESP PCR NOT DETECTED; CORONAVIRUS NL63-RESP PCR NOT DETECTED; CORONAVIRUS OC43-RESP PCR NOT DETECTED; HUMAN METAPNEUMOVIRUS NOT DETECTED; INFLUENZA A- RESP PCR PANEL NOT DETECTED; INFLUENZA B - RESP PCR PANEL NOT DETECTED; M. PNEUMONIAE- RESP PCR PANEL NOT DETECTED; PARAINFLUENZA VIRUS 1 NOT DETECTED; PARAINFLUENZA VIRUS 2 NOT DETECTED; PARAINFLUENZA VIRUS 3 NOT DETECTED; PARAINFLUENZA VIRUS 4 NOT DETECTED; RHINOVIRUS/ENTEROVIRUS NOT DETECTED; RSV- RESP PCR PANEL NOT DETECTED; SARS-CoV-2 -RESP PCR PANEL NOT DETECTED
[2021-04-22 15:08] VITALS: BP 131/57
== END 2021-04-22 15:20 | DRG 602 ==
LOC: EDUNIT# → ED 11:53 → MS2 15:09
PROVIDERS: ADMIT Internal Medicine; ATTEND Nurse Practitioner Gerontology
DX: L03.116 Cellulitis of left lower limb (principal); E43 Unspecified severe protein-calorie malnutrition; N17.9 Acute kidney failure, unspecified; N30.00 Acute cystitis without hematuria; L03.317 Cellulitis of buttock; E46 Unspecified protein-calorie malnutrition; L03.115 Cellulitis of right lower limb; E87.5 Hyperkalemia; E86.0 Dehydration; F03.90 Unspecified dementia, unspecified severity, without behavioral disturbance, psychotic disturbance, mood disturbance, and anxiety; R62.7 Adult failure to thrive; Z68.20 Body mass index [BMI] 20.0-20.9, adult; D64.9 Anemia, unspecified; R63.0 Anorexia; B96.89 Other specified bacterial agents as the cause of diseases classified elsewhere; B95.62 Methicillin resistant Staphylococcus aureus infection as the cause of diseases classified elsewhere; Z20.822 Contact with and (suspected) exposure to COVID-19; Z66 Do not resuscitate; F32.9 Major depressive disorder, single episode, unspecified; Z87.891 Personal history of nicotine dependence
CPT/HCPCS: 36415; 80048; 80053; 81001; 82040; 82330; 82607; 82746; 83540; 83690; 83735; 84466; 85025; 87040; 87070; 87086; 87181; 87205; 87631; 93005; 94640; 96374; 97110; 97161; 97166; 97530; 99281; 99285; A9270; J1815; J3370; J7040; 0202U; 81003

== ENCOUNTER 2021-04-22 15:27 | Outpatient (CLI) | payer MEDICARE, OTHER | END 2021-04-22 15:28 | LOC: EMS 15:27 | PROVIDERS: ATTEND Nurse Practitioner Gerontology | DX: R41.0 Disorientation, unspecified (principal); Z74.01 Bed confinement status | CPT/HCPCS: A0425; A0428 ==